=== PATIENT | male | born 1930 | race Caucasian/White ===

== ENCOUNTER → 2016-12-24 | Outpatient (CLI) | payer OTHER ==
[2014-11-27 17:36] VITALS: BP 204/92
[~2016-12-24] MED LIST: ASPI-482 PO; LISI-338 PO
--- NOTE | 2016-12-24 13:42 | EKG ---
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
--- NOTE | 2016-12-24 14:46 | RAD ---
Indication preop. Anticipated shoulder surgery. PA and lateral views of the chest were obtained. Comparison is made to an examination 07/19/2013. The heart and pulmonary vessels appear normal. The lungs are clear. There has not been a significant change when compared to the previous exam. IMPRESSION: No acute or focal process. No significant change
== END | disposition home or self-care (01) ==
LOC: SURGPAT 12:53 → EDSTATUS 13:30
PROVIDERS: ATTEND Orthopaedic Surgery Sports Medicine
DX: Z01.818 Encounter for other preprocedural examination (principal)
CPT/HCPCS: 71020; 87641; 93005

== ENCOUNTER 2017-01-06 07:42 | Inpatient (IN) | payer OTHER ==
[~2017-01-06] VITALS: Ht 180.3 cm; Wt 108.0 kg
[2017-01-06] VITALS (10 sets, daily range): BP systolic 100–130; BP diastolic 37–75
[~2017-01-06 07:42] MED LIST changes: +ACETAMINOPHEN 500 MG TABLET PO PRN; +HYDROmorphone 2 MG/ML VIAL IV PRN; +IV RINGERS,LACTATED 1000ML 1,000 ML IV SCH; +LIDOCAINE 1% 1 ML SYRINGE. ID PRN; +MELOXICAM 7.5 MG TABLET PO PRN; +MORPHINE SULFATE 2 MG/ML DISP.SYRIN. IV PRN; +ONDANSETRON PF 4 MG/2 ML VIAL. IV PRN; +PROCHLORPERAZINE 10 MG/2 ML VIAL. IV PRN; +TRANEXAMIC ACID 1,000 MG in IV NS 50ML -- 1ST BAG INJ ONE; +VANCOMYCIN 1GM IVPB FOR OMNI 250 ML IV PRN; +fentaNYL PF VIAL 100 MCG/2 ML VIAL IV PRN
[2017-01-06] MEDS ORDERED: TRANEXAMIC ACID 1,000 MG in IV NS 50ML -- 2ND BAG INJ ONE (08:00)
[2017-01-06] MEDS ORDERED: ONDANSETRON PF 4 MG/2 ML VIAL. ONE (09:26)
[2017-01-06] MEDS ORDERED: LIDOCAINE 2% PF Vial for OR 5 ML VIAL. ONE (09:26)
[2017-01-06] MEDS ORDERED: PROPOFOL 20 ML IV ONE ×2 (09:26→12:48)
[2017-01-06] MEDS ORDERED: DEXAMETHASONE SOD PHOS 20 MG/5 ML VIAL. ONE (09:26)
[2017-01-06] MEDS ORDERED: FAMOTIDINE 20 MG/2 ML VIAL ONE (09:26)
--- NOTE | 2017-01-06 09:53 | PDOC ---
BRIEF OPERATIVE NOTE Date: January 06, 2017 Pre-Op Diagnosis L shoulder DJD Post-Op Diagnosis same Procedure Performed L TSA Surgeon Dinesh Sand Conditioner Angelica Anesthesiologist Richard Anesthesia Type: General, Regional Blood Loss 100mL Complications none BREE MERCADO II January 06, 2017 09:53
[2017-01-06] MEDS ORDERED: BUPIVACAINE 0.5% 50 ML VIAL. ONE (09:59)
[2017-01-06] MEDS ORDERED: MIDAZOLAM HCL/PF 2 MG/2 ML VIAL. ONE (09:59)
[2017-01-06] MEDS ORDERED: EPINEPHrine 1 MG/ML VIAL ONE (09:59)
[2017-01-06] MEDS ORDERED: ROCURONIUM 50 MG/5 ML VIAL. ONE ×2 (10:09→11:24)
[2017-01-06] MEDS ORDERED: ePHEDrine PF IN SALINE 50 MG/5 ML DISP.SYRIN IV ONE (10:49)
[2017-01-06] MEDS ORDERED: SEVOFLURANE > 120 MINUTES. IH ONE (11:02)
[2017-01-06] MEDS ORDERED: KETOROLAC 60 MG/2 ML INJ FOR OR. ONE (11:12)
[2017-01-06] MEDS ORDERED: NEOSTIGMINE METHYLSULFATE 5 MG/5 ML SYRINGE. ONE (12:08)
[2017-01-06] MEDS ORDERED: GLYCOPYRROLATE 1 MG/5 ML VIAL. ONE (12:08)
[2017-01-06] MEDS: SENNOSIDES/DOCUSATE 8.6/50MG TABLET. PO SCH (16:00)
[2017-01-06] MEDS ORDERED: PROCHLORPERAZINE 5 MG TABLET. PO PRN (16:15)
[2017-01-06] MEDS ORDERED: traMADol 50 MG TABLET PO PRN ×2 (16:15)
[2017-01-06] MEDS ORDERED: MORPHINE SULFATE 2 MG/ML DISP.SYRIN. IV PRN (16:15)
[2017-01-06] MEDS ORDERED: oxyCODONE/APAP 5/325 1 TAB TABLET PO PRN (16:15)
[2017-01-06] MEDS ORDERED: ZOLPIDEM 5 MG TABLET. PO PRN (16:15)
[2017-01-06] MEDS ORDERED: METOCLOPRAMIDE HCL 10 MG/2 ML VIAL. IV PRN (16:15)
[2017-01-06] MEDS ORDERED: CALCIUM CARBONATE 500 MG TAB.CHEW PO PRN (16:15)
[2017-01-06] MEDS ORDERED: oxyCODONE/APAP 7.5/325 1 TAB TABLET PO PRN (16:15)
[2017-01-06] MEDS ORDERED: DEXTROSE 50% 25 GM / 50ML DISP.SYRIN. IV PRN (16:15)
[2017-01-06] MEDS ORDERED: HYDROcodone/APAP 7.5/325MG 1 TAB TABLET PO PRN (16:15)
[2017-01-06] MEDS ORDERED: 0.9 % SODIUM CHLORIDE 10 ML DISP.SYRIN. IV PRN (16:15)
[2017-01-06] MEDS ORDERED: HYDROcodone/APAP 10/325 1 TAB TABLET PO PRN (16:15)
[2017-01-06] MEDS: IV DEXTROSE 5 %-0.45 % NACL 1,000 ML IV SCH (16:43)
--- NOTE | 2017-01-06 16:54 | RAD ---
Examination: 2 views of the left shoulder History: History of postoperative comparison: 12/10/2016 Findings: The acromioclavicular joint grossly appears unremarkable. Left humerus prosthesis identified in near-normal alignment. Impression: Left film humerus prosthesis in near normal alignment.
[2017-01-06] MEDS: FERROUS SULFATE 325 MG TABLET. PO SCH (18:00)
[2017-01-06] MEDS: LISINOPRIL 5 MG TABLET. PO SCH (20:54)
[2017-01-06] MEDS ORDERED: CELECOXIB 200 MG CAPSULE. PO SCH (21:00)
--- NOTE | 2017-01-06 21:01 | OP ---
DATE OF SURGERY: 01/06/2017 SURGEON: Antoni Mercado MD. OFFLINE EDITOR: Delores Dominguez. PREOPERATIVE DIAGNOSIS: Advanced left shoulder degenerative joint disease. POSTOPERATIVE DIAGNOSIS: Advanced left shoulder degenerative joint disease. PROCEDURE PERFORMED: 1. Left total shoulder arthroplasty. 2. Open biceps tenodesis. COMPLICATIONS: None. ESTIMATED BLOOD LOSS: 100 mL. COMPONENTS INSERTED: 1. DePuy size-12 stem with a 135-degree proximal body and a 48 x 18 eccentric humeral head. 2. A 48-mm anchor peg glenoid. COMPLICATIONS: None. REASON FOR PROCEDURE: The patient is a very pleasant 86-year-old gentleman whom I had seen in an outpatient consultation. He had tried physical therapy, anti-inflammatories, and injections which failed to alleviate his shoulder pain adequately. It interfered with his function on a daily basis. Because of this, we had a discussion of risks, benefits, and alternatives to the above procedure, and he elected to proceed. DESCRIPTION OF PROCEDURE: The patient was greeted in the preoperative area by myself where correct extremity was marked and verified. He was taken to the Operative Suite, and his antibiotics were started en route. He had a regional nerve block placed by the Anesthesiology team prior to having him back to the OR. Once in the OR, he was transferred gently supine on the OR table and secured to the bed and then underwent successful induction of general anesthesia. We then placed a large pad under his legs and set him up in a beach chair position. We secured him to the bed and padded all pressure points. We then positioned the C-spine in a neutral position as well. We then proceeded to prep and drape the left upper extremity and shoulder girdle in our usual sterile fashion and conducted a standard preoperative timeout. After this, I palpated and marked surface anatomy and flower a line for my standard deltopectoral skin incision and then incised skin with a scalpel and dissected the subcutaneous tissue with Metzenbaums and electrocautery as well. After this, I identified a cephalic vein and bluntly dissected in its deltopectoral interval taking the vein laterally. I identified his clavipectoral fascia and conjoint tendon. I then incised the clavipectoral fascia in line with the skin incision and placed my Kolbel retractor. I then identified his biceps tendon and exposed this by incising the sheath vertically. After this, I tenodesed his biceps tendon to the upper border of the pectoralis major tendon. I then opened his bicipital sheath up into the shoulder joint itself and incised the rotator interval back to the level of the coracoid. After this, I then placed tag stitches in his subscapularis as I took this down with electrocautery with progressive external rotation as well. He had a large inferior osteophyte which I took down removing with a rongeur. I worked into the posterior aspect of his humeral head taking this off. I then identified my appropriate starting position and gained entry into his humeral canal and began reaming up and had a good first bite at 12. I then removed this. I then freehanded my humeral head cut after visualizing his joint line around and protecting his humeral head posteriorly. After this, I then placed my Fukuda retractor as well as Bankart retractor anteriorly and used a long-handled scalpel to circumferentially incise the capsule around the glenoid for my releases. I then placed my glenoid sizer and felt the 48 gave the best fit and then drilled the center pin and then reamed down to a good punctate bleeding bony bed. I then used a rongeur to remove the labrum as well. After this, I placed my right drill for my central peg hole and then removed the drill guide pin. I then placed my peripheral peg drill guide and then drilled in and placed my pegs as I want as well. I then thoroughly irrigated out the operative field. While I was drilling, my transition assistant was making the cement, and I prepared the bone graft in the slotted fins of my glenoid piece. I then impacted the glenoid in position with cement in the peripheral 3 holes under digital pressure. I confirmed that it had seated appropriately. After this, I removed my retractors and repositioned my [place] retractors around my humeral head for access to this. I then placed my broach matching the patient's [place] version. I impacted the broach and then sized different head combinations. I felt the 48 x 18 eccentric gave the best fit and fill. After this, I removed the trial components, irrigated out the canal, and impacted in position the permanent components after assembling them on the back table. I then reduced the shoulder that I could spring back. There was no undue tension on his subscapularis. It should be noted that prior to placing my humeral component I passed #2 Ethibond through drill holes and around the stem. I then used these to repair my subscapularis. I supplemented this with a #2 Ethibond in simple interrupted fashion from the upper border of subscapularis to the supraspinatus as well. I then closed the interval with a #2 Ethibond in a simple interrupted fashion. After this, I irrigated out the operative field again and then injected my periarticular mixture with a little into the joint as well as around the vijay-incisional area. Prior to completion of wound closure, all counts were reported correct x2. I continued on with my deltopectoral interval which was closed with running 0 Vicryl. Inverted interrupted 2-0 was used for subcutaneous tissue and running 4-0 Monocryl in subcuticular fashion was used for skin. He was then placed into an abduction pillow sling after the arm was cleansed and dried, and sterile dressing was applied. He was then awakened, transferred supine, and extubated to the Recovery Room cart and taken to PACU in stable and extubated condition. Postoperative plan is to [facility] care and observation as well as antibiotic prophylaxis and IV pain medicine. He will begin his rehabilitation as well. ANTONI MERCADO MD DR: MARTINA/angelica JOB#: [id number] / [id number] CHICHO
[2017-01-06] MEDS ORDERED: VANCOMYCIN 1 GM in IV NORMAL SALINE 250ML 250 ML IV ONE (22:30)
[2017-01-07] MEDS: IV DEXTROSE 5 %-0.45 % NACL 1,000 ML IV SCH (02:01)
[2017-01-07 03:30] VITALS: BP 128/75
[2017-01-07] MEDS ORDERED: MAGNESIUM HYDROXIDE 2,400 MG/30 ML ORAL.SUSP. PO PRN (06:00)
[2017-01-07 06:10] VITALS: BP 139/80
[2017-01-07 06:25] LABS: HEMATOCRIT 31.1 % (39.0-53.0); HEMOGLOBIN 10.7 g/dL (13.0-17.5)
[2017-01-07] MEDS: ASPIRIN ENTERIC COATED 81 MG TABLET.DR. PO SCH (08:00)
[2017-01-07] MEDS: FERROUS SULFATE 325 MG TABLET. PO SCH ×2 (08:18→18:43)
[2017-01-07] MEDS: MULTIVITAMIN with MINERAL TABLET. PO SCH (08:18)
[2017-01-07] MEDS: SENNOSIDES/DOCUSATE 8.6/50MG TABLET. PO SCH (08:18)
--- NOTE | 2017-01-07 10:10 | PDOC ---
ABNER ROMEO MAINTENANCE DEPARTMENT TECHNICIAN 01/07/17 1010: ORTHO PROGRESS NOTES Subjective Patient is doing well, pain controlled. RN reports urinary retention. st cath yesterday and 350 on bladder scan this am. Patient reports that he has had trouble with this for several years, never had any treatment. Denies any known problems with the prostate. Denies CP/SOB. Post-op Day: 1 (Left TSA) Vitals Vital Signs Date Time Temp Pulse Resp B/P (MAP) Pulse Ox O2 Delivery O2 Flow Rate FiO2 01/07/17 07:47 Room Air 01/07/17 06:10 97.4 78 20 139/80 (99) 94 97.4 01/06/17 13:19 10 Labs Laboratory Tests Test 01/07/17 05:45 Hemoglobin 10.7 g/dL (13.0-17.5) Hematocrit 31.1 % (39.0-53.0) Mean Corpuscular Hemoglobin Concent 34 g/dL (31-37) Laboratory Tests Test 01/07/17 05:45 Hemoglobin 10.7 g/dL (13.0-17.5) Hematocrit 31.1 % (39.0-53.0) Mean Corpuscular Hemoglobin Concent 34 g/dL (31-37) Notes Patient is awake and alert walking about the room. Breathing unlabored, no acute distress. Neurovascular intact left upper extremity. Incision is well approximated, no signs or symptoms of infection Problems: (1) DJD of left shoulder Assessment and Plan Urinary retention-start Flomax Pain controlled PT/OT BREE MERCADO II, MD 01/07/17 2012: Problem Qualifiers (1) DJD of left shoulder: Osteoarthritis type: primary Qualified Codes: M19.012 - Primary osteoarthritis, left shoulder ABNER ROMEO MAINTENANCE DEPARTMENT TECHNICIAN January 07, 2017 10:10 BREE MERCADO II, MD January 07, 2017 20:12
[2017-01-07] MEDS: TAMSULOSIN 0.4 MG CAP.ER.24H. PO SCH (11:30)
[2017-01-07] MEDS ORDERED: BISACODYL 10 MG SUPP.RECT. PR PRN (16:00)
[2017-01-07 18:13] VITALS: BP 137/67
[2017-01-07] MEDS: LISINOPRIL 5 MG TABLET. PO SCH (21:28)
[2017-01-08 04:35] LABS: HEMATOCRIT 30.7 % (39.0-53.0); HEMOGLOBIN 10.5 g/dL (13.0-17.5)
[2017-01-08 06:45] VITALS: BP 140/78
[2017-01-08] MEDS: MULTIVITAMIN with MINERAL TABLET. PO SCH (07:57)
[2017-01-08] MEDS: SENNOSIDES/DOCUSATE 8.6/50MG TABLET. PO SCH (07:58)
[2017-01-08] MEDS: TAMSULOSIN 0.4 MG CAP.ER.24H. PO SCH (07:58)
[2017-01-08] MEDS: FERROUS SULFATE 325 MG TABLET. PO SCH (07:58)
[2017-01-08] MEDS: ASPIRIN ENTERIC COATED 81 MG TABLET.DR. PO SCH (07:58)
--- NOTE | 2017-01-08 13:53 | PDOC ---
ABNER ROMEO STOVE TENDER 01/08/17 1353: ORTHO PROGRESS NOTES Subjective Patient is sore today, but overall pain controlled. Still having trouble with retention. RN states that it is "better" since I started him on flomax yesterday but still had residual on bladder scan and had to st cath. His tells me that he had trouble with frequent urination at home prior to surgery. He has not seen his PCP or urologist fo this problem. Denies N/V in the LUE. Post-op Day: 2 (Left total shoulder) Vitals Vital Signs Date Time Temp Pulse Resp B/P (MAP) Pulse Ox O2 Delivery O2 Flow Rate FiO2 01/08/17 07:40 Room Air 2.0 01/08/17 06:45 98.1 74 20 140/78 (98) 94 98.1 Labs Laboratory Tests Test 01/07/17 05:45 01/08/17 03:45 Hemoglobin 10.7 g/dL (13.0-17.5) 10.5 g/dL (13.0-17.5) Hematocrit 31.1 % (39.0-53.0) 30.7 % (39.0-53.0) Mean Corpuscular Hemoglobin Concent 34 g/dL (31-37) 34 g/dL (31-37) Laboratory Tests Test 01/08/17 03:45 Hemoglobin 10.5 g/dL (13.0-17.5) Hematocrit 30.7 % (39.0-53.0) Mean Corpuscular Hemoglobin Concent 34 g/dL (31-37) Notes Patient is awake and alert sitting up in chair. Breathing unlabored, no acute distress. Incision well approximated. Neurovascular intact left upper extremity. Problems: (1) DJD of left shoulder (2) Urinary retention Assessment and Plan Urinary retention- will discuss with dr Mercado Shoulder- doing well, ok to DC BREE MERCADO II, MD 01/08/17 7736: ORTHO PROGRESS NOTES Assessment and Plan Patient seen by myself. Urination back to normal, pain controlled, good progress with PT. OK to D/C Problem Qualifiers (1) DJD of left shoulder: Osteoarthritis type: primary Qualified Codes: M19.012 - Primary osteoarthritis, left shoulder ABNER ROMEO STOVE TENDER January 08, 2017 13:53 BREE MERCADO II, MD January 08, 2017 13:58
--- NOTE | 2017-01-08 13:56 | DISCH ---
DISCHARGE INSTRUCTIONS Condition on Discharge Condition on Discharge: Stable Activity After Discharge Activity Instructions for Disc: Other, see below Other activity instructions: arm to remain in sling Bathing Instructions: Shower-keep dressing dry Weight Bearing Status after Di: Non weight bearing Diet after Discharge Diet after Discharge: Regular Wound Incision Care Wound/Incision Care: Ice to area for comfort, Keep wound/cast CDI, Do not change dressing Contacting the DR. after DC Call your doctor for: Concerns you may have Follow-Up Follow up with: PCP in 1-2 wks Follow Up With: Dinesh in 2wks BREE MERCADO II, MD January 08, 2017 13:56
[2017-01-08] MEDS ORDERED: SENN8.6T99 PO (14:11)
[2017-01-08] MEDS ORDERED: TAMS0.4C97 PO (14:11)
[2017-01-08] MEDS ORDERED: HYDR-2666 PO (14:11)
--- NOTE | 2017-01-09 08:41 | PATHOLOGY ---
PATHOLOGY REPORT * * * * * * * * FINAL DIAGNOSIS: Segments of bone and soft tissue, left total shoulder arthroplasty: - Advanced degenerative arthritis. (JPM:csd; d/t: 01/08/2017) REPORT ELECTRONICALLY SIGNED BY: Ben Israel M.D. DATE/TIME: 01/09/2017 08:39 * * * * * * * * GROSS PATHOLOGY: Received in formalin labeled "Sigrid Quintero left shoulder tissue," is a dome-shaped segment of bone admixed with soft tissue measuring 6.8 x 5.9 x 2.8 cm in greatest dimensions. The articular surface is pink-farias and smooth to red-farias and granular with focal evidence of eburnation. Sectioning reveals a pink-farias marrow space. Also received with the specimen container is a 4.1 x 1.1 x 0.6 cm segment of light farias fibrous tissue. Loading Unit Tool Setter tissue is submitted in cassette A1, following decalcification. (KAH; 01/07/2017) INITIAL CPT CODE(S): A; 52664, 53747 Professional services performed by [facility] [place] [address] Technical services performed by [facility] at [address] [place] [address] [address], [place] [address]. SPECIMEN(S) RECEIVED: A.Left shoulder tissue CLINICAL HISTORY: Left shoulder tissue PATIENT: SIGRID QUINTERO /AGE: 10 1930 (Age: 86) PATIENT #: [id number] ALT CASE #: SPECIMEN COLLECTION DATE: 01/06/2017 SPECIMEN RECEIVED DATE: 01/06/2017 [facility] - [address] [place] [address] - PHONE: [phone] * * * END OF REPORT * * *
--- NOTE | 2017-01-10 08:47 | PDOC3 ---
Discharge Summary Visit Information Date of Admission: January 06, 2017 Date of Discharge: January 08, 2017 Admitting Diagnosis: left shoulder degenerative joint disease Brief Hospital Course Allergies Allergies Coded Allergies Type Severity Reaction Last Updated Verified Penicillins Allergy Intermediate Hives 01/06/17 Yes celecoxib Allergy Intermediate Swelling 01/06/17 Yes Brief Hospital Course Mr. Quintero is a 86 old male who presented to my outpatient orthopedic surgery clinic with complaints of severe and progressive left shoulder pain. Clinical and radiographic workup were consistent with degenerative joint disease and after failure of conservative therapies we had a discussion the risks benefits and alternatives precedent about surgery and he elected to proceed. He tolerated surgery well recovered well from anesthesia and the PACU. [facility] was [facility] for care and observation as well as to be getting his rehabilitation and received IV pain medicine and by a prophylaxis. His postoperative course was characterized by some urinary retention which was not unusual for him although this was a little bit worse. We started him on Flomax and prior to discharge he was voiding well. Otherwise his clinical course was uneventful. He was hemodynamically stable and afebrile. He was maintaining his ADLs well. He progressed well with physical therapy. His incision was clean dry and intact at the time of discharge. He was having normal bowel and bladder function and his pain was controlled on oral pain medicine Discharge Information Condition at Discharge: Stable Follow Up: Weeks Disposition/Orders: D/C to Home Scheduled Aspirin (Aspir 81), 81 MG PO DAILY08, (Reported) Lisinopril (Lisinopril), 5 MG PO HS, (Reported) Sennosides (Senokot), 1 TAB PO BID, (Reported) Tamsulosin Hcl (Flomax), 0.4 MG PO DAILY, (Reported) Scheduled PRN Hydrocodone Bit/Acetaminophen (Hydrocodone-Apap 5-325 ), 1 TAB PO PRN Q4- 6HRS PRN for PAIN, (Reported) Miscellaneous Medications [unknown], (Reported) Patient Instructions Patient Instructions He'll be discharged home. outpatient physical therapy as soon as variable. worrisome signs and symptoms that should prompt focal tomatoes were discussed with him. we will see him back at his follow-up appointment, sooner should a problem arise. he'll follow up with his primary care provider regarding his urinary retention. BREE MERCADO II, MD January 10, 2017 08:47
== END 2017-01-08 15:25 | disposition home health service (06) | DRG 483 ==
LOC: OPSVCIP 07:42 → 4 SOUTHEST 14:10
PROVIDERS: ADMIT Orthopaedic Surgery Sports Medicine; ATTEND Orthopaedic Surgery Sports Medicine
PROC: 0LM40ZZ Reattachment of Left Upper Arm Tendon, Open Approach (ICD-10-PCS; 2017-01-06)
PROC: 0RRK0JZ Replacement of Left Shoulder Joint with Synthetic Substitute, Open Approach (ICD-10-PCS; principal; 2017-01-06 09:30)
DX: M19.012 Primary osteoarthritis, left shoulder (principal); R33.9 Retention of urine, unspecified; Z88.0 Allergy status to penicillin; Z88.8 Allergy status to other drugs, medicaments and biological substances
CPT/HCPCS: 36415; 73030; 85014; 85018; 86850; 86900; 86901; 88304; 88311; A4215; J0171; J1100; J1885; J2250; J2270; J2405; J2704; J2710; J2795; J3370; J3490; J7030; J7050; J7120; S0028; 97110; 97116; 97150; 97530; 97535; C1769

== ENCOUNTER → 2017-02-18 | Outpatient (CLI) | payer OTHER ==
[~2017-02-18] MED LIST changes: -ACETAMINOPHEN 500 MG TABLET PO PRN; +HYDR-2758 PO; -HYDROmorphone 2 MG/ML VIAL IV PRN; -IV RINGERS,LACTATED 1000ML 1,000 ML IV SCH; -LIDOCAINE 1% 1 ML SYRINGE. ID PRN; -MELOXICAM 7.5 MG TABLET PO PRN; -MORPHINE SULFATE 2 MG/ML DISP.SYRIN. IV PRN; -ONDANSETRON PF 4 MG/2 ML VIAL. IV PRN; -PROCHLORPERAZINE 10 MG/2 ML VIAL. IV PRN; +SENN8.6T99 PO; +TAMS0.4C97 PO; -TRANEXAMIC ACID 1,000 MG in IV NS 50ML -- 1ST BAG INJ ONE; -VANCOMYCIN 1GM IVPB FOR OMNI 250 ML IV PRN; -fentaNYL PF VIAL 100 MCG/2 ML VIAL IV PRN
--- NOTE | 2017-02-18 13:06 | RAD ---
Indication: Benign prostatic hyperplasia. The right kidney measures 10.4 x 4.4 x 5.4 cm and the left kidney measures 11.0 x 5.3 x 4.6 cm. The cortical thickness and echogenicity is normal. No calculi or hydronephrosis is detected. The bladder is unremarkable. The prostate measures 4.2 x 3.4 x 3.5 cm. Note is made of multiple stones within the gallbladder. Impression: 1. Unremarkable renal ultrasound. 2. Cholelithiasis.
== END | disposition home or self-care (01) ==
LOC: US 11:25
PROVIDERS: ATTEND Urology
DX: N40.0 Benign prostatic hyperplasia without lower urinary tract symptoms (principal); K80.20 Calculus of gallbladder without cholecystitis without obstruction
CPT/HCPCS: 76770

== ENCOUNTER → 2019-06-15 | Outpatient (CLI) | payer OTHER ==
[~2019-06-15] MED LIST changes: -HYDR-2758 PO; +HYDR-2761 PO
--- NOTE | 2019-06-15 13:05 | RAD ---
EXAM: Right lower extremity venous Doppler. HISTORY: Right lower extremity pain/swelling. COMPARISON: None. FINDINGS: Grayscale and Doppler analysis of the right lower extremity deep venous system was performed with graded compression and augmentation. The common femoral, greater saphenous, superficial femoral, popliteal and calf veins were assessed. There is no evidence of deep venous thrombosis. IMPRESSION: 1. No evidence of deep venous thrombosis. Electronically signed by: Joy Liang MD (06/15/2019 1:02 PM) [facility]
== END | disposition home or self-care (01) ==
LOC: US 11:51
PROVIDERS: ATTEND Family Medicine
DX: M79.604 Pain in right leg (principal); R22.41 Localized swelling, mass and lump, right lower limb
CPT/HCPCS: 93971

== ENCOUNTER 2019-06-18 11:47 | Inpatient (IN) | payer OTHER ==
[~2019-06-18] VITALS: Ht 180.3 cm; Wt 98.9 kg
--- NOTE | 2019-06-18 12:46 | PHYS DOC ---
Past Medical History Past Medical History: Hypertension, Renal Disease, Other Additional Past Medical Histor: emphysema,heart murmur,CHRONIC PAIN,STAGE 3 KIDNEY DISEASE (RADHA BENTON APRN) Past Surgical History: Hip Replacement, Knee Replacement, Tonsillectomy, Other Additional Past Surgical Histo: BILAT CARPAL TUNNEL RELEASE,SHOULDER (RADHA BENTON APRN) Alcohol Use: None Drug Use: None (RADHA BENTON APRN) Attending Signature I have participated in the care of this patient and I have reviewed and agree with all pertinent clinical information above including history, exam, and recommendations. (NEISHA COURTNEY MD) Adult General Chief Complaint Chief Complaint: MULTIPLE COMPLAINTS HPI HPI Patient is a 89 year old male, accompanied by his family, who presents to the emergency department with complaints of ongoing right leg pain. Patient states he has been dealing with right leg pain for several months, he denies any injury. He states that currently cannot stand on his leg because of the pain. Patient reports that when the sx first started he was diagnosed with sciatica an d he completed 2 months of home PT with no benefit. He was seen by an orthopedic doctor Dr. Gil evaluated him and did x-rays month ago but did not come up with any diagnosis. Patient states he had an ultrasound here at the beginning of the week but does not know the results of the ultrasound. He states that he also has been short of breath with exertion for several months, he denies any chest pain, palpitations, wheezing, cough, or history of heart disease. Patient denies any loss of bowel or bladder control, he denies any saddle anesthesia. Currently he rates his pain a 3 out of 10 on the pain scale, the pain does not increase with straight leg lift. He denies any alleviating factors. (RADHA BENTON APRN) Review of Systems Review of Systems Constitutional: Denies fever or chills [] Eyes: Denies redness, or eye pain [] HENT: Denies nasal congestion or sore throat [] Respiratory: Denies cough; see HPI Cardiovascular: No additional information not addressed in HPI [] GI: Denies abdominal pain, nausea, vomiting, or diarrhea [] : Denies dysuria or hematuria [] Musculoskeletal: Denies back pain or joint pain; reports right leg pain and bilateral LE swelling see HPI[] Integument: Denies rash or skin lesions [] Neurologic: Denies headache, focal weakness or sensory changes [] All other systems were reviewed and found to be within normal limits, except as documented in this note. (RADHA BENTON APRN) Allergies Allergies Allergies Coded Allergies Type Severity Reaction Last Updated Verified Penicillins Allergy Intermediate Hives 01/06/17 Yes celecoxib Allergy Intermediate Swelling 01/06/17 Yes (NEISHA COURTNEY MD) Physical Exam Physical Exam Constitutional: Well developed, well nourished, no acute distress, non-toxic appearance. [] HENT: Normocephalic, atraumatic, bilateral external ears normal, nose normal. [] Eyes: PERRLA, no discharge. [] Neck: Normal range of motion, no stridor. [] Cardiovascular:Heart rate regular rhythm, no murmur [] Lungs & Thorax: Bilateral breath sounds clear to auscultation [] Abdomen: soft, no tenderness, Skin: Warm, dry, no erythema, no rash. [] Back: No tenderness Extremities: No bony tenderness or deformity, no cyanosis, no clubbing, ROM intact, 1+ edema bilateral lower extremities Neurologic: Alert and oriented X 3, no focal deficits noted. [] Psychologic: Affect normal, judgement normal, mood normal. [] (RADHA BENTON APRN) Current Patient Data Vital Signs Vital Signs Date Time Temp Pulse Resp B/P (MAP) Pulse Ox O2 Delivery O2 Flow Rate FiO2 06/18/19 14:37 68 153/76 (101) 98 Room Air 06/18/19 11:55 98.1 19 98.1 (NEISHA COURTNEY MD) Lab Values Laboratory Tests Test 06/18/19 13:10 06/18/19 13:35 Urine Collection Type Unknown Urine Color Yellow Urine Clarity Clear Urine pH 5.0 Urine Specific [place] 1.015 Urine Protein Negative mg/dL (NEG-TRACE) Urine Glucose (UA) Negative mg/dL (NEG) Urine Ketones (Stick) Negative mg/dL (NEG) Urine Blood Negative (NEG) Urine Nitrite Negative (NEG) Urine Bilirubin Negative (NEG) Urine Urobilinogen Dipstick 0.2 mg/dL (0.2 mg/dL) Urine Leukocyte Esterase Negative (NEG) Urine RBC 1-2 /HPF (0-2) Urine WBC 0 /HPF (0-4) Urine Squamous Epithelial Cells Few /LPF Urine Bacteria 0 /HPF (0-FEW) Urine Hyaline Casts Few /HPF Urine Mucus Slight /LPF White Blood Count 7.3 x10^3/uL (4.0-11.0) Red Blood Count 3.15 x10^6/uL (4.30-5.70) L Hemoglobin 11.0 g/dL (13.0-17.5) L Hematocrit 31.8 % (39.0-53.0) L Mean Corpuscular Volume 101 fL (79-100) H Mean Corpuscular Hemoglobin 35 pg (25-35) Mean Corpuscular Hemoglobin Concent 35 g/dL (31-37) Red Cell Distribution Width 15.9 % (11.5-14.5) H Platelet Count 187 x10^3/uL (140-400) Neutrophils (%) (Auto) 69 % (31-73) Lymphocytes (%) (Auto) 22 % (24-48) L Monocytes (%) (Auto) 7 % (0-9) Eosinophils (%) (Auto) 1 % (0-3) Basophils (%) (Auto) 1 % (0-3) Neutrophils # (Auto) 5.0 x10^3/uL (1.8-7.7) Lymphocytes # (Auto) 1.6 x10^3/uL (1.0-4.8) Monocytes # (Auto) 0.5 x10^3/uL (0.0-1.1) Eosinophils # (Auto) 0.1 x10^3/uL (0.0-0.7) Basophils # (Auto) 0.1 x10^3/uL (0.0-0.2) Erythrocyte Sedimentation Rate 35 (0-15) H Prothrombin Time 13.5 SEC (11.7-14.0) Prothrombin Time INR 1.1 (0.8-1.1) Activated Partial Thromboplast Time 29 SEC (24-38) Sodium Level 142 mmol/L (136-145) Potassium Level 4.5 mmol/L (3.5-5.1) Chloride Level 103 mmol/L (98-107) Carbon Dioxide Level 28 mmol/L (21-32) Anion Gap 11 (6-14) Blood Urea Nitrogen 32 mg/dL (8-26) H Creatinine 1.5 mg/dL (0.7-1.3) H Estimated GFR (Cockcroft-Gault) 44.3 BUN/Creatinine Ratio 21 (6-20) H Glucose Level 116 mg/dL (70-99) H Calcium Level 9.4 mg/dL (8.5-10.1) Magnesium Level 2.5 mg/dL (1.8-2.4) H Total Bilirubin 0.4 mg/dL (0.2-1.0) Aspartate Amino Transferase (AST) 19 U/L (15-37) Alanine Aminotransferase (ALT) 17 U/L (16-63) Alkaline Phosphatase 54 U/L (46-116) Creatine Kinase 42 U/L (39-308) Troponin I Quantitative 0.023 ng/mL (0.000-0.055) DU-Mid-I-Type Natriuretic Peptide 1908 pg/mL (0-449) H Total Protein 8.2 g/dL (6.4-8.2) Albumin 4.4 g/dL (3.4-5.0) Albumin/Globulin Ratio 1.2 (1.0-1.7) Thyroid Stimulating Hormone (TSH) 0.872 uIU/mL (0.358-3.74) Laboratory Tests 06/18/19 13:35 Laboratory Tests 06/18/19 13:35 (NEISHA COURTNEY MD) Lab Values Laboratory Tests Test 06/18/19 13:10 06/18/19 13:35 Urine Collection Type Unknown Urine Color Yellow Urine Clarity Clear Urine pH 5.0 Urine Specific [place] 1.015 Urine Protein Negative mg/dL (NEG-TRACE) Urine Glucose (UA) Negative mg/dL (NEG) Urine Ketones (Stick) Negative mg/dL (NEG) Urine Blood Negative (NEG) Urine Nitrite Negative (NEG) Urine Bilirubin Negative (NEG) Urine Urobilinogen Dipstick 0.2 mg/dL (0.2 mg/dL) Urine Leukocyte Esterase Negative (NEG) Urine RBC 1-2 /HPF (0-2) Urine WBC 0 /HPF (0-4) Urine Squamous Epithelial Cells Few /LPF Urine Bacteria 0 /HPF (0-FEW) Urine Hyaline Casts Few /HPF Urine Mucus Slight /LPF White Blood Count 7.3 x10^3/uL (4.0-11.0) Red Blood Count 3.15 x10^6/uL (4.30-5.70) L Hemoglobin 11.0 g/dL (13.0-17.5) L Hematocrit 31.8 % (39.0-53.0) L Mean Corpuscular Volume 101 fL (79-100) H Mean Corpuscular Hemoglobin 35 pg (25-35) Mean Corpuscular Hemoglobin Concent 35 g/dL (31-37) Red Cell Distribution Width 15.9 % (11.5-14.5) H Platelet Count 187 x10^3/uL (140-400) Neutrophils (%) (Auto) 69 % (31-73) Lymphocytes (%) (Auto) 22 % (24-48) L Monocytes (%) (Auto) 7 % (0-9) Eosinophils (%) (Auto) 1 % (0-3) Basophils (%) (Auto) 1 % (0-3) Neutrophils # (Auto) 5.0 x10^3/uL (1.8-7.7) Lymphocytes # (Auto) 1.6 x10^3/uL (1.0-4.8) Monocytes # (Auto) 0.5 x10^3/uL (0.0-1.1) Eosinophils # (Auto) 0.1 x10^3/uL (0.0-0.7) Basophils # (Auto) 0.1 x10^3/uL (0.0-0.2) Erythrocyte Sedimentation Rate 35 (0-15) H Prothrombin Time 13.5 SEC (11.7-14.0) Prothrombin Time INR 1.1 (0.8-1.1) Activated Partial Thromboplast Time 29 SEC (24-38) Sodium Level 142 mmol/L (136-145) Potassium Level 4.5 mmol/L (3.5-5.1) Chloride Level 103 mmol/L (98-107) Carbon Dioxide Level 28 mmol/L (21-32) Anion Gap 11 (6-14) Blood Urea Nitrogen 32 mg/dL (8-26) H Creatinine 1.5 mg/dL (0.7-1.3) H Estimated GFR (Cockcroft-Gault) 44.3 BUN/Creatinine Ratio 21 (6-20) H Glucose Level 116 mg/dL (70-99) H Calcium Level 9.4 mg/dL (8.5-10.1) Magnesium Level 2.5 mg/dL (1.8-2.4) H Total Bilirubin 0.4 mg/dL (0.2-1.0) Aspartate Amino Transferase (AST) 19 U/L (15-37) Alanine Aminotransferase (ALT) 17 U/L (16-63) Alkaline Phosphatase 54 U/L (46-116) Creatine Kinase 42 U/L (39-308) Troponin I Quantitative 0.023 ng/mL (0.000-0.055) VF-Niy-Q-Type Natriuretic Peptide 1908 pg/mL (0-449) H Total Protein 8.2 g/dL (6.4-8.2) Albumin 4.4 g/dL (3.4-5.0) Albumin/Globulin Ratio 1.2 (1.0-1.7) Thyroid Stimulating Hormone (TSH) 0.872 uIU/mL (0.358-3.74) Laboratory Tests 06/18/19 13:35 Laboratory Tests 06/18/19 13:35 (RADHA BENTON APRN) EKG EKG 1247- SR with PVCs and prolonged HI, leftward axis, NO STEMI rates [address] Courtney[] (RADHA BENTON APRN) Radiology/Procedures Radiology/Procedures PROCEDURE: VENOUS LOWER EXTREMITY RIGHT EXAM: Right lower extremity venous Doppler. HISTORY: Right lower extremity pain/swelling. COMPARISON: None. FINDINGS: Grayscale and Doppler analysis of the right lower extremity deep venous system was performed with graded compression and augmentation. The common femoral, greater saphenous, superficial femoral, popliteal and calf veins were assessed. There is no evidence of deep venous thrombosis. IMPRESSION: 1. No evidence of deep venous thrombosis.[] PROCEDURE: CHEST AP ONLY EXAM: Chest, single view. HISTORY: Shortness of breath. COMPARISON: 01/11/2017 FINDINGS: A frontal view of the chest is obtained. There is no infiltrate, pleural effusion or pneumothorax. The heart is normal in size. There is a left shoulder arthroplasty in expected position. IMPRESSION: No acute pulmonary finding. (RADHA BENTON APRN) Course & Med Decision Making Course & Med Decision Making Pertinent Labs and Imaging studies reviewed. (See chart for details) dx: R leg pain, SOA on exertion EKG unremarkable CBC RBC 3.15, Hgb 11.0, Hct 31.8; PT/INR unremarkable; CMP BUN 32, Buttermaker Continuous Churn 1.5 BUN/textile screen maker ratio 21, glucose 116, Mg 2.5, troponin 0.023, BNP 1908; UA unremarkable CXR no acute findings [address] Solis who is the admitting physician, and care was assumed following discussion of patient. Patient's vital signs stable. Patient remains afebrile, appears nontoxic, respirations even and unlabored. Patient will be admitted to the med/tele floor. Patient's case and plan of care also discussed with Dr. Courtney [] (RADHA BENTON APRN) Dragon Disclaimer Dragon Disclaimer This electronic medical record was generated, in whole or in part, using a voice recognition dictation system. (RADHA BENTON APRN) Departure Departure Impression: Primary Impression: Right leg pain Additional Impression: Short of breath on exertion Disposition: ADMITTED INPATIENT Admitting Physician: SABAS DUARTE) (RADHA BENTON APRN) Condition: STABLE Referrals: KATERYNA MORE MD (PCP) Problem Qualifiers RADHA BENTON APRN Jun 18, 2019 12:46 NEISHA COURTNEY MD Jun 19, 2019 06:22
--- NOTE | 2019-06-18 12:58 | EKG ---
[facility] [address] [place] [address] Test Date: 2019-06-18 Test Time: 12:47:49 Pat Name: SIGRID BRAND Department: Room: Gender: M Insurance Manager: : [id number] Requested By: RADHA BENTON Order Number: [id number] Reading MD: Sixto Pal MD Measurements Intervals [place] Rate: 71 P: 48 VA: 232 QRS: -26 QRSD: 74 T: 11 QT: 396 QTc: 435 Interpretive Statements SINUS RHYTHM VENTRICULAR PREMATURE COMPLEX(ES) PROLONGED VA INTERVAL Electronically Signed On 07-05-2019 8:28:26 CNC SERVICE ENGINEER by Sixto Pal MD
[2019-06-18 13:23] LABS: BILIRUBIN,URINE NEGATIVE (NEG); CLARITY,URINE CLEAR; COLOR,URINE YELLOW; NITRITE,URINE NEGATIVE (NEG); PROTEIN,URINE NEGATIVE (NEG-TRACE); UROBILINOGEN,URINE 0.2 mg/dL (0.2 mg/dL)
[2019-06-18 13:45] LABS: BASO # 0.1 x10^3/uL (0.0-0.2); BASO % 1 % (0-3); EOS # 0.1 x10^3/uL (0.0-0.7); EOS % 1 % (0-3); HEMATOCRIT 31.8 % (39.0-53.0); LYMPH # 1.6 x10^3/uL (1.0-4.8); LYMPH % 22 % (24-48); MEAN CORPUSCULAR HEMOGLOBIN 35 pg (25-35); MEAN CORPUSCULAR HGB CONC 35 g/dL (31-37); MEAN CORPUSCULAR VOLUME 101 fL (79-100); MONO # 0.5 x10^3/uL (0.0-1.1); MONO % 7 % (0-9); NEUT % 69 % (31-73); PLATELET COUNT 187 x10^3/uL (140-400); RED BLOOD COUNT 3.15 x10^6/uL (4.30-5.70); RED CELL DISTRIBUTION WIDTH 15.9 % (11.5-14.5); WHITE BLOOD COUNT 7.3 x10^3/uL (4.0-11.0)
[2019-06-18 13:52] LABS: HYALINE CASTS, URINE FEW /HPF; SQUAMOUS EPITHELIAL CELL,UR FEW /LPF
[2019-06-18 13:55] LABS: PROTHROMBIN TIME PATIENT 13.5 SEC (11.7-14.0)
[2019-06-18 13:59] LABS: BACTERIA,URINE 0 /HPF (0-FEW); WBC,URINE 0 /HPF (0-4)
[2019-06-18 14:02] LABS: CALCIUM 9.4 mg/dL (8.5-10.1); CREATININE 1.5 mg/dL (0.7-1.3); GFR 44.3; POTASSIUM 4.5 mmol/L (3.5-5.1)
[2019-06-18 14:08] LABS: ALBUMIN 4.4 g/dL (3.4-5.0); ALBUMIN/GLOBULIN RATIO 1.2 (1.0-1.7); MAGNESIUM 2.5 mg/dL (1.8-2.4); TOTAL BILIRUBIN 0.4 mg/dL (0.2-1.0); TOTAL PROTEIN 8.2 g/dL (6.4-8.2)
--- NOTE | 2019-06-18 14:45 | RAD ---
EXAM: Chest, single view. HISTORY: Shortness of breath. COMPARISON: 01/11/2017 FINDINGS: A frontal view of the chest is obtained. There is no infiltrate, pleural effusion or pneumothorax. The heart is normal in size. There is a left shoulder arthroplasty in expected position. IMPRESSION: No acute pulmonary finding. Electronically signed by: Hilda White MD (06/18/2019 2:42 PM) [place] [id number]
[2019-06-18] MEDS ORDERED: guaiFENesin/CODEINE 100mg/10mg 5 ML LIQUID PO PRN (15:00)
[2019-06-18] MEDS ORDERED: CALCIUM CARBONATE 500 MG TAB.CHEW PO PRN (15:00)
[2019-06-18] MEDS ORDERED: ALBUTEROL SULFATE 2.5 MG/3 ML NEBU. NEB PRN (15:00)
[2019-06-18] MEDS ORDERED: HYDROcodone/APAP 5/325MG 1 TAB TABLET PO PRN (15:00)
[2019-06-18] MEDS ORDERED: ONDANSETRON PF 4 MG/2 ML VIAL. IVP PRN (15:00)
[2019-06-18] MEDS ORDERED: cloNIDine HCL 0.1 MG TABLET PO PRN (15:00)
[2019-06-18] MEDS ORDERED: IV NORMAL SALINE 1000ML BAG 1,000 ML IV ONE (15:00)
[2019-06-18] MEDS ORDERED: TEMAZEPAM 7.5 MG CAPSULE PO PRN (15:00)
[2019-06-18] MEDS: HYDROcodone/APAP 5/325MG 1 TAB TABLET PO PRN ×2 (15:18→20:24)
--- NOTE | 2019-06-18 15:18 | PDOC1 ---
History and Physical Date of Admission Date of Admission DATE: 06/18/19 TIME: 15:09 Identification/Chief Complaint Chief Complaint bilateral ant thigh pain, in spurts, x mos now, SOA and leg edema Source Source: Caregiver, Chart review, Patient History of Present Illness History of Present Illness 89 white male, lives alone at home and uses walker, son lives a block away, bought in by son bec of persistent anteroir thigh pain with no obvious triggers.,happens in spurts like a "cramp attack". HE winces in pain every time it happens that i witness during y H and P., His past medical is BPH, prev on flomax but stopped bec of lightheadedness, HTN on lisinopril 5 and dementia on meds - but he actually has good functioning capabilities, LAbs UR, CXR neg Went to [facility] this week (4-5 days ago), bec of pitting edema legs and soa, NO known CHF< WAs not dcd on lasix but legs better per son. Admitted to be evaluated further for the above sxs ANterior thigh tender to palpation but looks grossly normal HE has ckd stage3, creat now 1.5 SOn claims they did almost 1 mo sounds like HH thinking it was sciatica, seems to have gotten better with short course steroid but stopped bec got better and the effects of fdc steroids. There is no overt back pain or shooting pain all the way to the toes on elevation (NEG STRAIGHT LEG RAISE TEST) Past Medical History Cardiovascular: HTN Renal/: Chronic renal insuff, Benign prostatic enlarg. Past Surgical History Past Surgical History: Other (left shoulder arthroplasty) Family History Family History: Hypertension Social History Smoke: No ALCOHOL: none Drugs: None Current Medications Current Medications Current Medications Aspirin (Ecotrin) 81 mg DAILY08 PO ; Start 06/19/19 at 08:00 Acetaminophen/ Hydrocodone Bitart (Lortab 5/325) 1 tab PRN QID PRN PO PAIN; Start 06/18/19 at 15:00 Lisinopril (Prinivil) 5 mg HS PO ; Start 06/18/19 at 21:00 Sennosides (Senna) 8.6 mg BID PO ; Start 06/18/19 at 21:00 Tamsulosin HCl (Flomax) 0.4 mg DAILY PO ; Start 06/19/19 at 09:00 Calcium Carbonate/ Glycine (Tums) 500 mg PRN AFTMEALHC PRN PO INDIGESTION; Start 06/18/19 at 15:00; Status UNV Ondansetron HCl (Zofran) 4 mg PRN Q6HRS PRN IVP NAUSEA/VOMITING; Start 06/18/19 at 15:00; Status UNV Temazepam (Restoril) 7.5 mg PRN QHS PRN PO INSOMNIA; Start 06/18/19 at 15:00; Status UNV Clonidine HCl (Catapres) 0.1 mg PRN Q1HR PRN PO HYPERTENSION; Start 06/18/19 at 15:00; Status UNV Albuterol Sulfate (Ventolin Neb Soln) 2.5 mg PRN Q4HRS PRN NEB SHORTNESS OF BREATH; Start 06/18/19 at 15:00; Status UNV Guaifenesin/ Codeine Phosphate (Robitussin Ac) 5 ml PRN Q6HRS PRN PO COUGH; Start 06/18/19 at 15:00; Status UNV Acetaminophen/ Hydrocodone Bitart (Lortab 5/325) 1 tab PRN Q4HRS PRN PO PAIN; Start 06/18/19 at 15:00; Status UNV Sodium Chloride 1,000 ml @ 75 mls/hr 1X ONCE IV ; Start 06/18/19 at 15:00; Stop 06/19/19 at 04:19 Active Scripts Active Reported Hydrocodone-Apap 5-325 (Hydrocodone Bit/Acetaminophen) 1 Each Tablet 1 Tab PO PRN Q4-6HRS PRN Flomax (Tamsulosin Hcl) 0.4 Mg Cap.er.24h 0.4 Mg PO DAILY Senokot (Sennosides) 8.6 Mg Tablet 1 Tab PO BID [unknown] Aspir 81 (Aspirin) 81 Mg Tablet.dr 81 Mg PO DAILY08 Lisinopril 5 Mg Tablet 5 Mg PO HS Allergies Allergies: Coded Allergies: Penicillins (Verified Allergy, Intermediate, Hives, 01/06/17) celecoxib (Verified Allergy, Intermediate, Swelling, 01/06/17) ROS Review of System as per hpi, the rest 14 pt neg HE DENIES ANY SENSORY ISSUES WITH THAT LEG Neurological: No Behavorial Changes, No Bowel/Bladder ControlChng, No Confusion, No Dizziness, No Gait Disturbance, No Headaches, No Impaired Coord/balance, No Memory Loss, No Numbness/Tingling, No Seizures, No Speech Problems, No Tremors, No Visual Changes, No Weakness, No Other Skin: No Dry Skin, No Eczema, No Hair Changes, No Lumps, No Mole Changes, No Mottling, No Nail Changes, No Pruritus, No Rash, No Skin Lesion Changes, No Other, No Acne Physical Exam General: Alert, Oriented X3, Cooperative, No acute distress HEENT: Atraumatic, PERRLA, EOMI Lungs: Clear to auscultation, Normal air movement Heart: S1S2, RRR, no thrills, no rubs, no gallops, no murmurs Cardiovascular: S1, S2 Abdomen: Normal bowel sounds, Soft, No tenderness, No hepatosplenomegaly, No masses Male Genitals Exam: normal genitalia, normal prostate Rectal Exam: not examined PELVIC: Nml ext genitalia Extremities: No clubbing, No cyanosis, No edema, Normal pulses, No tenderness/swelling Skin: No rashes, No breakdown, No significant lesion Neuro: Normal gait, Normal speech, Strength at 5/5 X4 ext, Normal tone, Sensation intact, Cranial nerves 3-12 NL, Reflexes 2+ Psych/Mental Status: Mental status NL, Mood NL Vitals Vitals Vital Signs Date Time Temp Pulse Resp B/P (MAP) Pulse Ox O2 Delivery O2 Flow Rate FiO2 06/18/19 11:55 98.1 74 19 167/89 (115) 100 Room Air 98.1 Labs Labs Laboratory Tests Test 06/18/19 13:10 06/18/19 13:35 Urine Collection Type Unknown Urine Color Yellow Urine Clarity Clear Urine pH 5.0 Urine Specific [place] 1.015 Urine Protein Negative mg/dL (NEG-TRACE) Urine Glucose (UA) Negative mg/dL (NEG) Urine Ketones (Stick) Negative mg/dL (NEG) Urine Blood Negative (NEG) Urine Nitrite Negative (NEG) Urine Bilirubin Negative (NEG) Urine Urobilinogen Dipstick 0.2 mg/dL (0.2 mg/dL) Urine Leukocyte Esterase Negative (NEG) Urine RBC 1-2 /HPF (0-2) Urine WBC 0 /HPF (0-4) Urine Squamous Epithelial Cells Few /LPF Urine Bacteria 0 /HPF (0-FEW) Urine Hyaline Casts Few /HPF Urine Mucus Slight /LPF White Blood Count 7.3 x10^3/uL (4.0-11.0) Red Blood Count 3.15 x10^6/uL (4.30-5.70) Hemoglobin 11.0 g/dL (13.0-17.5) Hematocrit 31.8 % (39.0-53.0) Mean Corpuscular Volume 101 fL (79-100) Mean Corpuscular Hemoglobin 35 pg (25-35) Mean Corpuscular Hemoglobin Concent 35 g/dL (31-37) Red Cell Distribution Width 15.9 % (11.5-14.5) Platelet Count 187 x10^3/uL (140-400) Neutrophils (%) (Auto) 69 % (31-73) Lymphocytes (%) (Auto) 22 % (24-48) Monocytes (%) (Auto) 7 % (0-9) Eosinophils (%) (Auto) 1 % (0-3) Basophils (%) (Auto) 1 % (0-3) Neutrophils # (Auto) 5.0 x10^3/uL (1.8-7.7) Lymphocytes # (Auto) 1.6 x10^3/uL (1.0-4.8) Monocytes # (Auto) 0.5 x10^3/uL (0.0-1.1) Eosinophils # (Auto) 0.1 x10^3/uL (0.0-0.7) Basophils # (Auto) 0.1 x10^3/uL (0.0-0.2) Prothrombin Time 13.5 SEC (11.7-14.0) Prothromb Time International Ratio 1.1 (0.8-1.1) Activated Partial Thromboplast Time 29 SEC (24-38) Sodium Level 142 mmol/L (136-145) Potassium Level 4.5 mmol/L (3.5-5.1) Chloride Level 103 mmol/L (98-107) Carbon Dioxide Level 28 mmol/L (21-32) Anion Gap 11 (6-14) Blood Urea Nitrogen 32 mg/dL (8-26) Creatinine 1.5 mg/dL (0.7-1.3) Estimated GFR (Cockcroft-Gault) 44.3 BUN/Creatinine Ratio 21 (6-20) Glucose Level 116 mg/dL (70-99) Calcium Level 9.4 mg/dL (8.5-10.1) Magnesium Level 2.5 mg/dL (1.8-2.4) Total Bilirubin 0.4 mg/dL (0.2-1.0) Aspartate Amino Transf (AST/SGOT) 19 U/L (15-37) Alanine Aminotransferase (ALT/SGPT) 17 U/L (16-63) Alkaline Phosphatase 54 U/L (46-116) Troponin I Quantitative 0.023 ng/mL (0.000-0.055) ZA-Dnm-A-Type Natriuretic Peptide 1908 pg/mL (0-449) Total Protein 8.2 g/dL (6.4-8.2) Albumin 4.4 g/dL (3.4-5.0) Albumin/Globulin Ratio 1.2 (1.0-1.7) Laboratory Tests Test 06/18/19 13:10 06/18/19 13:35 Urine Collection Type Unknown Urine Color Yellow Urine Clarity Clear Urine pH 5.0 Urine Specific [place] 1.015 Urine Protein Negative mg/dL (NEG-TRACE) Urine Glucose (UA) Negative mg/dL (NEG) Urine Ketones (Stick) Negative mg/dL (NEG) Urine Blood Negative (NEG) Urine Nitrite Negative (NEG) Urine Bilirubin Negative (NEG) Urine Urobilinogen Dipstick 0.2 mg/dL (0.2 mg/dL) Urine Leukocyte Esterase Negative (NEG) Urine RBC 1-2 /HPF (0-2) Urine WBC 0 /HPF (0-4) Urine Squamous Epithelial Cells Few /LPF Urine Bacteria 0 /HPF (0-FEW) Urine Hyaline Casts Few /HPF Urine Mucus Slight /LPF White Blood Count 7.3 x10^3/uL (4.0-11.0) Red Blood Count 3.15 x10^6/uL (4.30-5.70) Hemoglobin 11.0 g/dL (13.0-17.5) Hematocrit 31.8 % (39.0-53.0) Mean Corpuscular Volume 101 fL (79-100) Mean Corpuscular Hemoglobin 35 pg (25-35) Mean Corpuscular Hemoglobin Concent 35 g/dL (31-37) Red Cell Distribution Width 15.9 % (11.5-14.5) Platelet Count 187 x10^3/uL (140-400) Neutrophils (%) (Auto) 69 % (31-73) Lymphocytes (%) (Auto) 22 % (24-48) Monocytes (%) (Auto) 7 % (0-9) Eosinophils (%) (Auto) 1 % (0-3) Basophils (%) (Auto) 1 % (0-3) Neutrophils # (Auto) 5.0 x10^3/uL (1.8-7.7) Lymphocytes # (Auto) 1.6 x10^3/uL (1.0-4.8) Monocytes # (Auto) 0.5 x10^3/uL (0.0-1.1) Eosinophils # (Auto) 0.1 x10^3/uL (0.0-0.7) Basophils # (Auto) 0.1 x10^3/uL (0.0-0.2) Prothrombin Time 13.5 SEC (11.7-14.0) Prothromb Time International Ratio 1.1 (0.8-1.1) Activated Partial Thromboplast Time 29 SEC (24-38) Sodium Level 142 mmol/L (136-145) Potassium Level 4.5 mmol/L (3.5-5.1) Chloride Level 103 mmol/L (98-107) Carbon Dioxide Level 28 mmol/L (21-32) Anion Gap 11 (6-14) Blood Urea Nitrogen 32 mg/dL (8-26) Creatinine 1.5 mg/dL (0.7-1.3) Estimated GFR (Cockcroft-Gault) 44.3 BUN/Creatinine Ratio 21 (6-20) Glucose Level 116 mg/dL (70-99) Calcium Level 9.4 mg/dL (8.5-10.1) Magnesium Level 2.5 mg/dL (1.8-2.4) Total Bilirubin 0.4 mg/dL (0.2-1.0) Aspartate Amino Transf (AST/SGOT) 19 U/L (15-37) Alanine Aminotransferase (ALT/SGPT) 17 U/L (16-63) Alkaline Phosphatase 54 U/L (46-116) Troponin I Quantitative 0.023 ng/mL (0.000-0.055) WK-Ddd-F-Type Natriuretic Peptide 1908 pg/mL (0-449) Total Protein 8.2 g/dL (6.4-8.2) Albumin 4.4 g/dL (3.4-5.0) Albumin/Globulin Ratio 1.2 (1.0-1.7) VTE Prophylaxis Ordered VTE Prophylaxis Devices: Yes VTE Pharmacological Prophylaxi: Yes Assessment/Plan Assessment/Plan 1. MYalgia x mos, anterior thigh - add tsh, esr, cpk - IF WILLIAN [facility] MIGHT NEED MUSCLE BIOPSY BY GS 2. Recent tx for sciatica, possible - s/.p short pred 3. Dementia - good iadls - on meds 4. HTN - higher than usual, cont lisinopril 5, add prn clonidine 5. BPH - prev on flomax- request morgan, i will re start flomax, WOF orthostasis 6. HX left shoulder arthroplasty - as seen on CXR 7. SOA with recent pitting edema, BNP 1900- check echo, no signif edema current;y 8. FULL CODE Dw Son at bedside,seen at ER FERMIN MONTANA MD Jun 18, 2019 15:18
[2019-06-18] MEDS ORDERED: QUET25TA5 PO (18:36)
[2019-06-18] MEDS ORDERED: DONE10TA7 PO (18:36)
[2019-06-18] MEDS ORDERED: CHOL10003 PO (18:46)
[2019-06-18] MEDS ORDERED: MEMA10TA PO (18:46)
[2019-06-18 19:00] VITALS: BP 148/84
[2019-06-18] MEDS: QUEtiapine 25 MG TABLET. PO SCH (20:23)
[2019-06-18] MEDS: MEMANTINE 10 MG TABLET. PO SCH (20:23)
[2019-06-18] MEDS: LISINOPRIL 5 MG TABLET. PO SCH (20:23)
[2019-06-18] MEDS: SENNOSIDES 8.6 MG TABLET PO SCH (20:24)
[2019-06-18 23:13] VITALS: BP 157/87
[2019-06-19 03:13] VITALS: BP 110/57
[2019-06-19] MEDS: HYDROcodone/APAP 5/325MG 1 TAB TABLET PO PRN ×2 (03:20→08:51)
[2019-06-19 05:54] LABS: CALCIUM 8.5 mg/dL (8.5-10.1); CREATININE 1.4 mg/dL (0.7-1.3); GFR 47.9; POTASSIUM 4.1 mmol/L (3.5-5.1)
[2019-06-19 07:00] VITALS: BP 131/73
[2019-06-19] MEDS: CHOLECALCIFEROL (VITAMIN D3) 1,000 UNIT TABLET PO SCH (08:49)
[2019-06-19] MEDS: MEMANTINE 10 MG TABLET. PO SCH ×2 (08:49→21:02)
[2019-06-19] MEDS: SENNOSIDES 8.6 MG TABLET PO SCH ×2 (08:50→21:02)
[2019-06-19] MEDS: MULTIVITAMIN with MINERAL TABLET. PO SCH (08:50)
[2019-06-19] MEDS: QUEtiapine 25 MG TABLET. PO SCH ×2 (08:50→21:02)
[2019-06-19] MEDS: DONEPEZIL HCL 5 MG TABLET. PO SCH (08:50)
[2019-06-19] MEDS: ASPIRIN ENTERIC COATED 81 MG TABLET.DR. PO SCH (08:50)
[2019-06-19] MEDS: VITAMIN B12,B9,B6 COMPLEX 1 TABLET. PO SCH (08:53)
[2019-06-19] MEDS ORDERED: TAMSULOSIN 0.4 MG CAP.ER.24H. PO SCH (09:00)
--- NOTE | 2019-06-19 10:43 | PDOC ---
[employer] PROGRESS NOTE Chief Complaint Chief Complaint 0. CHF 1. Myalgia x mos, anterior thigh - add tsh, esr, cpk - IF [facility] MIGHT NEED MUSCLE BIOPSY BY GS 2. Recent tx for sciatica, possible - s/.p short pred 3. Dementia - good iadls - on meds 4. HTN - higher than usual, cont lisinopril 5, add prn clonidine 5. BPH - prev on flomax- request morgan, i will re start flomax, WOF orthostasis 6. HX left shoulder arthroplasty - as seen on CXR 7. SOA with recent pitting edema, BNP 1900- check echo, no signif edema current;y 8. FULL CODE History of Present Illness History of Present Illness [id number] Patient seen and examined Discussed with RN I'm the consult cardiology because his BNP level is high We are also going to check lower extremity Dopplers to rule out DVT Vitals/I&O Vitals/I&O: Vital Signs Date Time Temp Pulse Resp B/P (MAP) Pulse Ox O2 Delivery O2 Flow Rate FiO2 06/19/19 08:51 97 Room Air 06/19/19 07:00 97.7 97 18 131/73 (92) 97.7 I & O 06/18/19 06/18/19 06/19/19 15:00 23:00 07:00 Intake Total 240 ml 200 ml Balance 240 ml 200 ml Physical Exam General: Cooperative, No acute distress, Other (pleasantly confused) Heart: Regular rate Lungs: Crackles Abdomen: Normal bowel sounds, Soft, No tenderness, No hepatosplenomegaly, No masses Extremities: No clubbing, No cyanosis, No edema, Normal pulses, No tenderness/swelling Skin: No rashes, No breakdown, No significant lesion Labs Labs: Laboratory Tests Test 06/18/19 13:10 06/18/19 13:35 06/19/19 05:10 Urine Collection Type Unknown Urine Color Yellow Urine Clarity Clear Urine pH 5.0 Urine Specific [place] 1.015 Urine Protein Negative mg/dL (NEG-TRACE) Urine Glucose (UA) Negative mg/dL (NEG) Urine Ketones (Stick) Negative mg/dL (NEG) Urine Blood Negative (NEG) Urine Nitrite Negative (NEG) Urine Bilirubin Negative (NEG) Urine Urobilinogen Dipstick 0.2 mg/dL (0.2 mg/dL) Urine Leukocyte Esterase Negative (NEG) Urine RBC 1-2 /HPF (0-2) Urine WBC 0 /HPF (0-4) Urine Squamous Epithelial Cells Few /LPF Urine Bacteria 0 /HPF (0-FEW) Urine Hyaline Casts Few /HPF Urine Mucus Slight /LPF White Blood Count 7.3 x10^3/uL (4.0-11.0) Red Blood Count 3.15 x10^6/uL (4.30-5.70) Hemoglobin 11.0 g/dL (13.0-17.5) Hematocrit 31.8 % (39.0-53.0) Mean Corpuscular Volume 101 fL (79-100) Mean Corpuscular Hemoglobin 35 pg (25-35) Mean Corpuscular Hemoglobin Concent 35 g/dL (31-37) Red Cell Distribution Width 15.9 % (11.5-14.5) Platelet Count 187 x10^3/uL (140-400) Neutrophils (%) (Auto) 69 % (31-73) Lymphocytes (%) (Auto) 22 % (24-48) Monocytes (%) (Auto) 7 % (0-9) Eosinophils (%) (Auto) 1 % (0-3) Basophils (%) (Auto) 1 % (0-3) Neutrophils # (Auto) 5.0 x10^3/uL (1.8-7.7) Lymphocytes # (Auto) 1.6 x10^3/uL (1.0-4.8) Monocytes # (Auto) 0.5 x10^3/uL (0.0-1.1) Eosinophils # (Auto) 0.1 x10^3/uL (0.0-0.7) Basophils # (Auto) 0.1 x10^3/uL (0.0-0.2) Erythrocyte Sedimentation Rate 35 (0-15) Prothrombin Time 13.5 SEC (11.7-14.0) Prothromb Time International Ratio 1.1 (0.8-1.1) Activated Partial Thromboplast Time 29 SEC (24-38) Sodium Level 142 mmol/L (136-145) 142 mmol/L (136-145) Potassium Level 4.5 mmol/L (3.5-5.1) 4.1 mmol/L (3.5-5.1) Chloride Level 103 mmol/L (98-107) 106 mmol/L (98-107) Carbon Dioxide Level 28 mmol/L (21-32) 29 mmol/L (21-32) Anion Gap 11 (6-14) 7 (6-14) Blood Urea Nitrogen 32 mg/dL (8-26) 26 mg/dL (8-26) Creatinine 1.5 mg/dL (0.7-1.3) 1.4 mg/dL (0.7-1.3) Estimated GFR (Cockcroft-Gault) 44.3 47.9 BUN/Creatinine Ratio 21 (6-20) Glucose Level 116 mg/dL (70-99) 87 mg/dL (70-99) Calcium Level 9.4 mg/dL (8.5-10.1) 8.5 mg/dL (8.5-10.1) Magnesium Level 2.5 mg/dL (1.8-2.4) Total Bilirubin 0.4 mg/dL (0.2-1.0) Aspartate Amino Transf (AST/SGOT) 19 U/L (15-37) Alanine Aminotransferase (ALT/SGPT) 17 U/L (16-63) Alkaline Phosphatase 54 U/L (46-116) Creatine Kinase 42 U/L (39-308) Troponin I Quantitative 0.023 ng/mL (0.000-0.055) GB-Jmf-N-Type Natriuretic Peptide 1908 pg/mL (0-449) Total Protein 8.2 g/dL (6.4-8.2) Albumin 4.4 g/dL (3.4-5.0) Albumin/Globulin Ratio 1.2 (1.0-1.7) Thyroid Stimulating Hormone (TSH) 0.872 uIU/mL (0.358-3.74) Review of Systems Review of Systems: Complains of weakness Complains of leg pain Assessment and Plan Assessmemt and Plan Problems Medical Problems: (1) Short of breath on exertion Status: Acute 0. CHF 1. Myalgia x mos, anterior thigh - add tsh, esr, cpk - 2. Recent tx for sciatica, possible - s/.p short pred 3. Dementia - good iadls - on meds 4. HTN - higher than usual, cont lisinopril 5, add prn clonidine 5. BPH - prev on flomax- request morgan, i will re start flomax, WOF orthostasis 6. HX left shoulder arthroplasty - as seen on CXR 7. SOA with recent pitting edema, BNP 1900- check echo, no signif edema current;y 8. FULL CODE Plan Consult cardiology Laboratory Dopplers to rule out DVT Home meds PT OT Frequent labs See above Comment Review of Relevant I have reviewed the following items get (where applicable) has been applied. Medications: Current Medications Medications (Trade) Dose Ordered Sig/Alpa Route PRN Reason Start Time Stop Time Status Last Admin Dose Admin Aspirin (Ecotrin) 81 mg DAILY08 PO 06/19/19 08:00 06/19/19 08:50 Lisinopril (Prinivil) 5 mg HS PO 06/18/19 21:00 06/18/19 20:23 Sennosides (Senna) 8.6 mg BID PO 06/18/19 21:00 06/19/19 08:50 Acetaminophen/ Hydrocodone Bitart (Lortab 5/325) 1 tab PRN Q4HRS PRN PO PAIN 06/18/19 15:00 06/19/19 10:33 DC 06/19/19 08:51 Sodium Chloride 1,000 ml @ 75 mls/hr 1X ONCE IV 06/18/19 15:00 06/19/19 04:19 DC 06/18/19 20:26 Memantine (Namenda) 10 mg BID PO 06/18/19 21:00 06/19/19 08:49 Donepezil HCl (Aricept) 5 mg DAILY PO 06/19/19 09:00 06/19/19 08:50 Multivitamins (Thera M Plus) 1 tab DAILY PO 06/19/19 09:00 06/19/19 08:50 Quetiapine Fumarate (SEROquel) 25 mg BID PO 06/18/19 21:00 06/19/19 08:50 Vitamin D (Vitamin D3) 1,000 unit DAILY PO 06/19/19 09:00 06/19/19 08:49 KEON ESPINOZA III DO Jun 19, 2019 10:43
[2019-06-19 11:00] VITALS: BP 119/53
[2019-06-19] MEDS: HYDROcodone/APAP 10/325 1 TAB TABLET PO PRN ×2 (11:29→17:08)
[2019-06-19] MEDS: tiZANidine 4 MG TABLET. PO PRN (11:29)
[2019-06-19] MEDS: predniSONE 10 MG TABLET PO SCH (11:29)
[2019-06-19] MEDS: PANTOPRAZOLE 40 MG TABLET.DR. PO SCH (11:30)
--- NOTE | 2019-06-19 11:51 | PDOC2 ---
CONSULT Date of Consult Date of Consult DATE: 06/19/19 TIME: 11:51 Reason for Consult Reason for Consult: Elevated BNP level Referring Physician Referring Physician: Dr. Pacheco Identification/Chief Complaint Chief Complaint Right leg pain Source Source: Chart review, Patient History of Present Illness Reason for Visit: 89-year-old male with history of sciatica presented with presented with right leg pain that he described as cramping sensation. He also complained of dyspnea on exertion but denied any chest pain, orthopnea/PND, palpitations or syncope. His BNP level was elevated prompting cardiology consultation. He was apparently told that he had leak in his heart when he was 5 years old but has not had any further workup recently. Past Medical History Cardiovascular: HTN Pulmonary: COPD Renal/: Chronic renal insuff, Benign prostatic enlarg. Past Surgical History Past Surgical History Hip replacement, knee replacement, tonsillectomy, bilateral carpal tunnel release surgeries Past Surgical History: Other (left shoulder arthroplasty) Family History Family History: Hypertension Social History No ALCOHOL: none Drugs: None Current Problem List Problem List Problems Medical Problems: (1) Short of breath on exertion Status: Acute Current Medications Current Medications Current Medications Aspirin (Ecotrin) 81 mg DAILY08 PO Last administered on 06/19/19at 08:50; Start 06/19/19 at 08:00 Acetaminophen/ Hydrocodone Bitart (Lortab 5/325) 1 tab PRN QID PRN PO PAIN; Start 06/18/19 at 15:00; Stop 06/18/19 at 15:10; Status DC Lisinopril (Prinivil) 5 mg HS PO Last administered on 06/18/19at 20:23; Start 06/18/19 at 21:00 Sennosides (Senna) 8.6 mg BID PO Last administered on 06/19/19at 08:50; Start 06/18/19 at 21:00 Tamsulosin HCl (Flomax) 0.4 mg DAILY PO ; Start 06/19/19 at 09:00; Stop 06/18/19 at 20:00; Status DC Calcium Carbonate/ Glycine (Tums) 500 mg PRN AFTMEALHC PRN PO INDIGESTION; Start 06/18/19 at 15:00 Ondansetron HCl (Zofran) 4 mg PRN Q6HRS PRN IVP NAUSEA/VOMITING; Start 06/18/19 at 15:00 Temazepam (Restoril) 7.5 mg PRN QHS PRN PO INSOMNIA; Start 06/18/19 at 15:00 Clonidine HCl (Catapres) 0.1 mg PRN Q1HR PRN PO HYPERTENSION; Start 06/18/19 at 15:00 Albuterol Sulfate (Ventolin Neb Soln) 2.5 mg PRN Q4HRS PRN NEB SHORTNESS OF BREATH; Start 06/18/19 at 15:00 Guaifenesin/ Codeine Phosphate (Robitussin Ac) 5 ml PRN Q6HRS PRN PO COUGH; Start 06/18/19 at 15:00 Acetaminophen/ Hydrocodone Bitart (Lortab 5/325) 1 tab PRN Q4HRS PRN PO PAIN Last administered on 06/19/19at 08:51; Start 06/18/19 at 15:00; Stop 06/19/19 at 10:33; Status DC Sodium Chloride 1,000 ml @ 75 mls/hr 1X ONCE IV Last administered on 06/18/19at 20:26; Start 06/18/19 at 15:00; Stop 06/19/19 at 04:19; Status DC Memantine (Namenda) 10 mg BID PO Last administered on 06/19/19at 08:49; Start 06/18/19 at 21:00 Donepezil HCl (Aricept) 5 mg DAILY PO Last administered on 06/19/19at 08:50; Start 06/19/19 at 09:00 Multivitamins (Thera M Plus) 1 tab DAILY PO Last administered on 06/19/19at 08:50; Start 06/19/19 at 09:00 Vitamin B Complex (Folbic Tablet) 1 tab DAILY PO ; Start 06/19/19 at 09:00 Quetiapine Fumarate (SEROquel) 25 mg BID PO Last administered on 06/19/19at 08:50; Start 06/18/19 at 21:00 Vitamin D (Vitamin D3) 1,000 unit DAILY PO Last administered on 06/19/19at 08:49; Start 06/19/19 at 09:00 Prednisone (Prednisone) 10 mg DAILY PO Last administered on 06/19/19at 11:29; Start 06/19/19 at 10:30 Pantoprazole Sodium (Protonix) 40 mg DAILYAC PO Last administered on 06/19/19at 11:30; Start 06/19/19 at 10:30 Tizanidine HCl (Zanaflex) 4 mg PRN Q8HRS PRN PO MUSCLE SPASMS Last administered on 06/19/19at 11:29; Start 06/19/19 at 10:30 Acetaminophen/ Hydrocodone Bitart (Lortab 10/325) 1 tab PRN Q6HRS PRN PO PAIN Last administered on 06/19/19at 11:29; Start 06/19/19 at 10:30 Active Scripts Active Reported Namenda (Memantine Hcl) 10 Mg Tablet 1 Tab PO BID Vitamin D3 (Cholecalciferol (Vitamin D3)) 1,000 Unit Tablet 1 Tab PO DAILY Donepezil Hcl 10 Mg Tablet 1 Tab PO DAILY Seroquel (Quetiapine Fumarate) 25 Mg Tablet 25 Mg PO BID Hydrocodone-Apap 5-325 (Hydrocodone Bit/Acetaminophen) 1 Each Tablet 1 Tab PO PRN Q4-6HRS PRN Senokot (Sennosides) 8.6 Mg Tablet 1 Tab PO BID Aspir 81 (Aspirin) 81 Mg Tablet.dr 81 Mg PO DAILY08 Lisinopril 5 Mg Tablet 5 Mg PO HS Allergies Allergies: Coded Allergies: Penicillins (Verified Allergy, Intermediate, Hives, 01/06/17) celecoxib (Verified Allergy, Intermediate, Swelling, 01/06/17) ROS General: YES: Fatigue PSYCHOLOGICAL ROS: No: Hallucinations Eyes: No Loss of vision HEENT: No: Epistaxis Respiratory: YES: Shortness of breath; No: Hemoptysis Cardiovascular: No Chest Pain Gastrointestinal: No Nausea, No Vomiting Genitourinary: No Hematuria Neurological: No Seizures Skin: No Rash Physical Exam General: Alert HEENT: Atraumatic Lungs: Clear to auscultation Heart: Regular rate Abdomen: Soft Extremities: Other (1+ pitting pedal edema) Psych/Mental Status: Mood NL Vitals VITALS Vital Signs Date Time Temp Pulse Resp B/P (MAP) Pulse Ox O2 Delivery O2 Flow Rate FiO2 06/19/19 11:29 97 Room Air 06/19/19 11:00 97.4 72 18 119/53 (75) 97.4 Labs Labs Laboratory Tests Test 06/18/19 13:10 06/18/19 13:35 06/19/19 05:10 Urine Collection Type Unknown Urine Color Yellow Urine Clarity Clear Urine pH 5.0 Urine Specific [place] 1.015 Urine Protein Negative mg/dL (NEG-TRACE) Urine Glucose (UA) Negative mg/dL (NEG) Urine Ketones (Stick) Negative mg/dL (NEG) Urine Blood Negative (NEG) Urine Nitrite Negative (NEG) Urine Bilirubin Negative (NEG) Urine Urobilinogen Dipstick 0.2 mg/dL (0.2 mg/dL) Urine Leukocyte Esterase Negative (NEG) Urine RBC 1-2 /HPF (0-2) Urine WBC 0 /HPF (0-4) Urine Squamous Epithelial Cells Few /LPF Urine Bacteria 0 /HPF (0-FEW) Urine Hyaline Casts Few /HPF Urine Mucus Slight /LPF White Blood Count 7.3 x10^3/uL (4.0-11.0) Red Blood Count 3.15 x10^6/uL (4.30-5.70) Hemoglobin 11.0 g/dL (13.0-17.5) Hematocrit 31.8 % (39.0-53.0) Mean Corpuscular Volume 101 fL (79-100) Mean Corpuscular Hemoglobin 35 pg (25-35) Mean Corpuscular Hemoglobin Concent 35 g/dL (31-37) Red Cell Distribution Width 15.9 % (11.5-14.5) Platelet Count 187 x10^3/uL (140-400) Neutrophils (%) (Auto) 69 % (31-73) Lymphocytes (%) (Auto) 22 % (24-48) Monocytes (%) (Auto) 7 % (0-9) Eosinophils (%) (Auto) 1 % (0-3) Basophils (%) (Auto) 1 % (0-3) Neutrophils # (Auto) 5.0 x10^3/uL (1.8-7.7) Lymphocytes # (Auto) 1.6 x10^3/uL (1.0-4.8) Monocytes # (Auto) 0.5 x10^3/uL (0.0-1.1) Eosinophils # (Auto) 0.1 x10^3/uL (0.0-0.7) Basophils # (Auto) 0.1 x10^3/uL (0.0-0.2) Erythrocyte Sedimentation Rate 35 (0-15) Prothrombin Time 13.5 SEC (11.7-14.0) Prothromb Time International Ratio 1.1 (0.8-1.1) Activated Partial Thromboplast Time 29 SEC (24-38) Sodium Level 142 mmol/L (136-145) 142 mmol/L (136-145) Potassium Level 4.5 mmol/L (3.5-5.1) 4.1 mmol/L (3.5-5.1) Chloride Level 103 mmol/L (98-107) 106 mmol/L (98-107) Carbon Dioxide Level 28 mmol/L (21-32) 29 mmol/L (21-32) Anion Gap 11 (6-14) 7 (6-14) Blood Urea Nitrogen 32 mg/dL (8-26) 26 mg/dL (8-26) Creatinine 1.5 mg/dL (0.7-1.3) 1.4 mg/dL (0.7-1.3) Estimated GFR (Cockcroft-Gault) 44.3 47.9 BUN/Creatinine Ratio 21 (6-20) Glucose Level 116 mg/dL (70-99) 87 mg/dL (70-99) Calcium Level 9.4 mg/dL (8.5-10.1) 8.5 mg/dL (8.5-10.1) Magnesium Level 2.5 mg/dL (1.8-2.4) Total Bilirubin 0.4 mg/dL (0.2-1.0) Aspartate Amino Transf (AST/SGOT) 19 U/L (15-37) Alanine Aminotransferase (ALT/SGPT) 17 U/L (16-63) Alkaline Phosphatase 54 U/L (46-116) Creatine Kinase 42 U/L (39-308) Troponin I Quantitative 0.023 ng/mL (0.000-0.055) ZJ-Eam-T-Type Natriuretic Peptide 1908 pg/mL (0-449) Total Protein 8.2 g/dL (6.4-8.2) Albumin 4.4 g/dL (3.4-5.0) Albumin/Globulin Ratio 1.2 (1.0-1.7) Thyroid Stimulating Hormone (TSH) 0.872 uIU/mL (0.358-3.74) Laboratory Tests Test 06/18/19 13:10 06/18/19 13:35 06/19/19 05:10 Urine Collection Type Unknown Urine Color Yellow Urine Clarity Clear Urine pH 5.0 Urine Specific [place] 1.015 Urine Protein Negative mg/dL (NEG-TRACE) Urine Glucose (UA) Negative mg/dL (NEG) Urine Ketones (Stick) Negative mg/dL (NEG) Urine Blood Negative (NEG) Urine Nitrite Negative (NEG) Urine Bilirubin Negative (NEG) Urine Urobilinogen Dipstick 0.2 mg/dL (0.2 mg/dL) Urine Leukocyte Esterase Negative (NEG) Urine RBC 1-2 /HPF (0-2) Urine WBC 0 /HPF (0-4) Urine Squamous Epithelial Cells Few /LPF Urine Bacteria 0 /HPF (0-FEW) Urine Hyaline Casts Few /HPF Urine Mucus Slight /LPF White Blood Count 7.3 x10^3/uL (4.0-11.0) Red Blood Count 3.15 x10^6/uL (4.30-5.70) Hemoglobin 11.0 g/dL (13.0-17.5) Hematocrit 31.8 % (39.0-53.0) Mean Corpuscular Volume 101 fL (79-100) Mean Corpuscular Hemoglobin 35 pg (25-35) Mean Corpuscular Hemoglobin Concent 35 g/dL (31-37) Red Cell Distribution Width 15.9 % (11.5-14.5) Platelet Count 187 x10^3/uL (140-400) Neutrophils (%) (Auto) 69 % (31-73) Lymphocytes (%) (Auto) 22 % (24-48) Monocytes (%) (Auto) 7 % (0-9) Eosinophils (%) (Auto) 1 % (0-3) Basophils (%) (Auto) 1 % (0-3) Neutrophils # (Auto) 5.0 x10^3/uL (1.8-7.7) Lymphocytes # (Auto) 1.6 x10^3/uL (1.0-4.8) Monocytes # (Auto) 0.5 x10^3/uL (0.0-1.1) Eosinophils # (Auto) 0.1 x10^3/uL (0.0-0.7) Basophils # (Auto) 0.1 x10^3/uL (0.0-0.2) Erythrocyte Sedimentation Rate 35 (0-15) Prothrombin Time 13.5 SEC (11.7-14.0) Prothromb Time International Ratio 1.1 (0.8-1.1) Activated Partial Thromboplast Time 29 SEC (24-38) Sodium Level 142 mmol/L (136-145) 142 mmol/L (136-145) Potassium Level 4.5 mmol/L (3.5-5.1) 4.1 mmol/L (3.5-5.1) Chloride Level 103 mmol/L (98-107) 106 mmol/L (98-107) Carbon Dioxide Level 28 mmol/L (21-32) 29 mmol/L (21-32) Anion Gap 11 (6-14) 7 (6-14) Blood Urea Nitrogen 32 mg/dL (8-26) 26 mg/dL (8-26) Creatinine 1.5 mg/dL (0.7-1.3) 1.4 mg/dL (0.7-1.3) Estimated GFR (Cockcroft-Gault) 44.3 47.9 BUN/Creatinine Ratio 21 (6-20) Glucose Level 116 mg/dL (70-99) 87 mg/dL (70-99) Calcium Level 9.4 mg/dL (8.5-10.1) 8.5 mg/dL (8.5-10.1) Magnesium Level 2.5 mg/dL (1.8-2.4) Total Bilirubin 0.4 mg/dL (0.2-1.0) Aspartate Amino Transf (AST/SGOT) 19 U/L (15-37) Alanine Aminotransferase (ALT/SGPT) 17 U/L (16-63) Alkaline Phosphatase 54 U/L (46-116) Creatine Kinase 42 U/L (39-308) Troponin I Quantitative 0.023 ng/mL (0.000-0.055) KM-Sle-P-Type Natriuretic Peptide 1908 pg/mL (0-449) Total Protein 8.2 g/dL (6.4-8.2) Albumin 4.4 g/dL (3.4-5.0) Albumin/Globulin Ratio 1.2 (1.0-1.7) Thyroid Stimulating Hormone (TSH) 0.872 uIU/mL (0.358-3.74) Assessment/Plan Assessment/Plan 1. Right leg pain, myalgia, sciatica: Lower extremity venous duplex scan did not show any DVT. Treat per primary team 2. Elevated BNP level: Chest x-ray did not show any evidence of congestive heart failure. Dyspnea on exertion could be secondary to COPD. Check 2-D echo to assess LV systolic function. 3. Hypertension: Better controlled since admission Thank you for your consultation. NIKOLAS PHAN MD Jun 19, 2019 11:51
[2019-06-19 15:00] VITALS: BP 87/53
--- NOTE | 2019-06-19 18:36 | CONS ---
DATE OF CONSULTATION: 06/19/2019 ATTENDING PHYSICIAN: Ricarda Solis MD REASON FOR CONSULTATION: The patient was seen at the request of Dr. Solis for rehab evaluation. LOCATION: He is in room 650. HISTORY OF PRESENT ILLNESS: This is an 89-year-old male known to me. The patient was admitted through the Emergency Room on 06/18/2019 with right thigh area pain. He is having this pain going on for a while. Denies any injury or any recent fall. He is having difficulty to stand on his right leg because of the pain. He was first diagnosed as having sciatica and completed 2 months of home physical therapy without any help. He was seen by Dr. Castaneda, orthopedic surgeon who did not find any diagnosis after x-rays. He had ultrasound earlier this week. The patient also had some shortness of breath with exertion for several months. He denies any trouble with his bowel or bladder control. The patient denies any numbness or tingling sensation in the extremities. PAST MEDICAL HISTORY: Hypertension, chronic renal insufficiency, emphysema, heart murmur, stage 3 kidney disease, bilateral hip and knee replacement and also left shoulder arthroplasty, tonsillectomy, and bilateral carpal tunnel release. ALLERGIES: THE PATIENT IS KNOWN ALLERGIC TO PENICILLIN AND CELEBREX. PHYSICAL EXAMINATION: On physical examination today revealed an elderly male. He is alert, oriented to time, place, person and circumstance and follows commands appropriately, moves all 4 extremities voluntarily where he had 4+/5 grade muscle strength. He had painful range of motion on both hip joints. He had localized tenderness to palpation over right sacroiliac joint area, right hamstring tendon attachment to ischial tuberosity area and also over hip adductor muscles, mainly on the right side. He had pain reproduced on resist to knee extension bilaterally. He had painful range of motion of both hip and knee joints. The patient had equal perception of touch and pinprick sensation bilaterally. Deep tendon reflexes are absent at both knees and ankles. Straight leg raising test is negative bilaterally. His skin is intact. He requires some help with transfers. Once up, he is walking using a roller walker. He apparently had been using a roller walker to walk around and he lives by himself. ASSESSMENT: Chronic lower back pain from degenerative disk disease of lumbar vertebrae with associated tendinitis, right hip and hip adductor muscle strain in a patient status post bilateral total knee and total hip arthroplasty to rule out associated lumbar spinal stenosis. He also presents with clinical evidence of peripheral neuropathy. The patient with known hypertension, chronic kidney disease stage 3, emphysema, heart murmur. RECOMMENDATIONS: To obtain MRI scan of his lumbar vertebrae without contrast to make sure he does not have any new disk problem or lumbar spinal stenosis to consider injecting painful right sacroiliac joint area. If his pain persists, to try prednisone orally and Protonix to help protect his stomach and increase the dose of hydrocodone. Agree with the plan for physical therapy and occupational therapy. Dr. Solis, I appreciate asking me to participate in care of this interesting patient. I will be glad to follow him with you as needed for the rehabilitation. JASPREET HO MD DR: SAE/angelica JOB#: [id number] / [id number]
[2019-06-19 19:49] VITALS: BP 122/69
[2019-06-19] MEDS: LISINOPRIL 5 MG TABLET. PO SCH (21:03)
[2019-06-19 23:30] VITALS: BP 102/57
[2019-06-20 03:12] VITALS: BP 126/56
[2019-06-20 04:52] LABS: BASO # 0.1 x10^3/uL (0.0-0.2); BASO % 1 % (0-3); EOS # 0.1 x10^3/uL (0.0-0.7); EOS % 2 % (0-3); HEMATOCRIT 26.8 % (39.0-53.0); HEMOGLOBIN 9.2 g/dL (13.0-17.5); LYMPH % 29 % (24-48); MEAN CORPUSCULAR HEMOGLOBIN 35 pg (25-35); MEAN CORPUSCULAR HGB CONC 34 g/dL (31-37); MEAN CORPUSCULAR VOLUME 102 fL (79-100); MONO # 0.7 x10^3/uL (0.0-1.1); MONO % 10 % (0-9); NEUT # 3.9 x10^3/uL (1.8-7.7); NEUT % 58 % (31-73); PLATELET COUNT 156 x10^3/uL (140-400); RED BLOOD COUNT 2.64 x10^6/uL (4.30-5.70); WHITE BLOOD COUNT 6.8 x10^3/uL (4.0-11.0)
[2019-06-20 05:12] LABS: ALBUMIN 3.4 g/dL (3.4-5.0); ALBUMIN/GLOBULIN RATIO 1.1 (1.0-1.7); CREATININE 1.5 mg/dL (0.7-1.3); GFR 44.3; POTASSIUM 4.5 mmol/L (3.5-5.1); TOTAL BILIRUBIN 0.4 mg/dL (0.2-1.0); TOTAL PROTEIN 6.5 g/dL (6.4-8.2)
[2019-06-20 07:00] VITALS: BP 103/52
[2019-06-20] MEDS: CHOLECALCIFEROL (VITAMIN D3) 1,000 UNIT TABLET PO SCH (10:03)
[2019-06-20] MEDS: SENNOSIDES 8.6 MG TABLET PO SCH ×2 (10:03→21:24)
[2019-06-20] MEDS: tiZANidine 4 MG TABLET. PO PRN (10:04)
[2019-06-20] MEDS: predniSONE 10 MG TABLET PO SCH (10:04)
[2019-06-20] MEDS: QUEtiapine 25 MG TABLET. PO SCH ×2 (10:04→21:24)
[2019-06-20] MEDS: MEMANTINE 10 MG TABLET. PO SCH ×2 (10:04→21:25)
[2019-06-20] MEDS: MULTIVITAMIN with MINERAL TABLET. PO SCH (10:04)
[2019-06-20] MEDS: ASPIRIN ENTERIC COATED 81 MG TABLET.DR. PO SCH (10:04)
[2019-06-20] MEDS: HYDROcodone/APAP 10/325 1 TAB TABLET PO PRN (10:04)
[2019-06-20] MEDS: PANTOPRAZOLE 40 MG TABLET.DR. PO SCH (10:04)
[2019-06-20] MEDS: VITAMIN B12,B9,B6 COMPLEX 1 TABLET. PO SCH (10:05)
[2019-06-20] MEDS: DONEPEZIL HCL 5 MG TABLET. PO SCH (10:05)
[2019-06-20 11:00] VITALS: BP 95/42
--- NOTE | 2019-06-20 11:16 | PDOC ---
[employer] PROGRESS NOTE Chief Complaint Chief Complaint 0. CHF 1. Myalgia x mos, anterior thigh - add tsh, esr, cpk - IF [facility] MIGHT NEED MUSCLE BIOPSY BY GS 2. Recent tx for sciatica, possible - s/.p short pred 3. Dementia - good iadls - on meds 4. HTN - higher than usual, cont lisinopril 5, add prn clonidine 5. BPH - prev on flomax- request morgan, i will re start flomax, WOF orthostasis 6. HX left shoulder arthroplasty - as seen on CXR 7. SOA with recent pitting edema, BNP 1900- check echo, no signif edema currently Anemia FULL CODE History of Present Illness History of Present Illness 06/20/2019 Pt seen and examined. Pt sitting in chair and conversant, breathing comfortably on room air. Pt not oriented to date. Doppler of lower extremities was negative for DVT. [id number] Patient seen and examined Discussed with RN I'm the consult cardiology because his BNP level is high We are also going to check lower extremity Dopplers to rule out DVT Vitals/I&O Vitals/I&O: Vital Signs Date Time Temp Pulse Resp B/P (MAP) Pulse Ox O2 Delivery O2 Flow Rate FiO2 06/20/19 10:04 95 Room Air 06/20/19 07:00 98.5 60 16 103/52 (69) 98.5 I & O 06/19/19 06/19/19 06/20/19 15:00 23:00 07:00 Intake Total 0 ml 600 ml Balance 0 ml 600 ml Physical Exam General: Alert, No acute distress Heart: Regular rate Lungs: Crackles Abdomen: Soft Extremities: Other (1+ pitting pedal edema) Skin: No rashes, No breakdown, No significant lesion Labs Labs: Laboratory Tests Test 06/20/19 03:35 White Blood Count 6.8 x10^3/uL (4.0-11.0) Red Blood Count 2.64 x10^6/uL (4.30-5.70) Hemoglobin 9.2 g/dL (13.0-17.5) Hematocrit 26.8 % (39.0-53.0) Mean Corpuscular Volume 102 fL (79-100) Mean Corpuscular Hemoglobin 35 pg (25-35) Mean Corpuscular Hemoglobin Concent 34 g/dL (31-37) Red Cell Distribution Width 16.0 % (11.5-14.5) Platelet Count 156 x10^3/uL (140-400) Neutrophils (%) (Auto) 58 % (31-73) Lymphocytes (%) (Auto) 29 % (24-48) Monocytes (%) (Auto) 10 % (0-9) Eosinophils (%) (Auto) 2 % (0-3) Basophils (%) (Auto) 1 % (0-3) Neutrophils # (Auto) 3.9 x10^3/uL (1.8-7.7) Lymphocytes # (Auto) 2.0 x10^3/uL (1.0-4.8) Monocytes # (Auto) 0.7 x10^3/uL (0.0-1.1) Eosinophils # (Auto) 0.1 x10^3/uL (0.0-0.7) Basophils # (Auto) 0.1 x10^3/uL (0.0-0.2) Sodium Level 144 mmol/L (136-145) Potassium Level 4.5 mmol/L (3.5-5.1) Chloride Level 107 mmol/L (98-107) Carbon Dioxide Level 30 mmol/L (21-32) Anion Gap 7 (6-14) Blood Urea Nitrogen 28 mg/dL (8-26) Creatinine 1.5 mg/dL (0.7-1.3) Estimated GFR (Cockcroft-Gault) 44.3 BUN/Creatinine Ratio 19 (6-20) Glucose Level 104 mg/dL (70-99) Calcium Level 9.0 mg/dL (8.5-10.1) Total Bilirubin 0.4 mg/dL (0.2-1.0) Aspartate Amino Transf (AST/SGOT) 15 U/L (15-37) Alanine Aminotransferase (ALT/SGPT) 15 U/L (16-63) Alkaline Phosphatase 41 U/L (46-116) Total Protein 6.5 g/dL (6.4-8.2) Albumin 3.4 g/dL (3.4-5.0) Albumin/Globulin Ratio 1.1 (1.0-1.7) Review of Systems Review of Systems: Dyspnea on exertion No chest pain Assessment and Plan Assessmemt and Plan Problems Medical Problems: (1) Short of breath on exertion Status: Acute Anemia - Hg 9.2 A.M. 06/20/19 CHF Myalgia x mos, anterior thigh - add tsh, esr, cpk - Recent tx for sciatica, possible - s/.p short pred Dementia - good iadls - on meds, not oriented to year HTN - higher than usual, cont lisinopril 5, add prn clonidine BPH - prev on flomax- request morgan, i will re start flomax, WOF orthostasis HX left shoulder arthroplasty - as seen on CXR SOA with recent pitting edema, BNP 1900- check echo, no signif edema currently FULL CODE Plan Trend Hemoglobin, recheck Await GI input Await cardiology input Home meds PT OT CBC, CMP Comment Review of Relevant I have reviewed the following items get (where applicable) has been applied. KEON ESPINOZA III DO Jun 20, 2019 11:16
--- NOTE | 2019-06-20 12:23 | PDOC ---
PROGRESS NOTES Subjective Subjective No new complaints Objective Objective Vital Signs Date Time Temp Pulse Resp B/P (MAP) Pulse Ox O2 Delivery O2 Flow Rate FiO2 06/20/19 11:15 95 Room Air 06/20/19 07:00 98.5 60 16 103/52 (69) 98.5 Intake and Output 06/20/19 07:00 Intake Total 600 ml Balance 600 ml Intake Oral 600 ml # Voids 5 Physical Exam Abdomen: Soft Heart: Regular rate Extremities: Other (1+ pitting pedal edema) General: Alert, No acute distress HEENT: Atraumatic Lungs: Clear to auscultation Neuro: Normal gait, Normal speech, Strength at 5/5 X4 ext, Normal tone, Sensation intact, Cranial nerves 3-12 NL, Reflexes 2+ Psych/Mental Status: Mood NL Skin: No rashes, No breakdown, No significant lesion Assessment Assessment 1. Right leg pain, myalgia, sciatica: Lower extremity venous duplex scan did not show any DVT. Treat per primary team 2. Elevated BNP level: Chest x-ray did not show any evidence of congestive heart failure. Dyspnea on exertion could be secondary to COPD. 2-D echo showed normal LV systolic function. 3. Hypertension: Better controlled since admission Plan Plan of Care Problems Medical Problems: (1) Short of breath on exertion Status: Acute Comment Review of Relevant I have reviewed the following items get (where applicable) has been applied. Labs Laboratory Tests Test 06/20/19 03:35 White Blood Count 6.8 x10^3/uL (4.0-11.0) Red Blood Count 2.64 x10^6/uL (4.30-5.70) Hemoglobin 9.2 g/dL (13.0-17.5) Hematocrit 26.8 % (39.0-53.0) Mean Corpuscular Volume 102 fL (79-100) Mean Corpuscular Hemoglobin 35 pg (25-35) Mean Corpuscular Hemoglobin Concent 34 g/dL (31-37) Red Cell Distribution Width 16.0 % (11.5-14.5) Platelet Count 156 x10^3/uL (140-400) Neutrophils (%) (Auto) 58 % (31-73) Lymphocytes (%) (Auto) 29 % (24-48) Monocytes (%) (Auto) 10 % (0-9) Eosinophils (%) (Auto) 2 % (0-3) Basophils (%) (Auto) 1 % (0-3) Neutrophils # (Auto) 3.9 x10^3/uL (1.8-7.7) Lymphocytes # (Auto) 2.0 x10^3/uL (1.0-4.8) Monocytes # (Auto) 0.7 x10^3/uL (0.0-1.1) Eosinophils # (Auto) 0.1 x10^3/uL (0.0-0.7) Basophils # (Auto) 0.1 x10^3/uL (0.0-0.2) Sodium Level 144 mmol/L (136-145) Potassium Level 4.5 mmol/L (3.5-5.1) Chloride Level 107 mmol/L (98-107) Carbon Dioxide Level 30 mmol/L (21-32) Anion Gap 7 (6-14) Blood Urea Nitrogen 28 mg/dL (8-26) Creatinine 1.5 mg/dL (0.7-1.3) Estimated GFR (Cockcroft-Gault) 44.3 BUN/Creatinine Ratio 19 (6-20) Glucose Level 104 mg/dL (70-99) Calcium Level 9.0 mg/dL (8.5-10.1) Total Bilirubin 0.4 mg/dL (0.2-1.0) Aspartate Amino Transf (AST/SGOT) 15 U/L (15-37) Alanine Aminotransferase (ALT/SGPT) 15 U/L (16-63) Alkaline Phosphatase 41 U/L (46-116) Total Protein 6.5 g/dL (6.4-8.2) Albumin 3.4 g/dL (3.4-5.0) Albumin/Globulin Ratio 1.1 (1.0-1.7) Vitals/I & O Vital Sign - Last 24 Hours 06/19/19 06/19/19 06/19/19 06/19/19 12:52 15:00 17:08 18:16 Temp 97.5 97.5 Pulse 58 Resp 20 B/P (MAP) 87/53 (64) Pulse Ox 97 94 94 94 O2 Delivery Room Air Room Air Room Air Room Air 06/19/19 06/19/19 06/19/19 06/19/19 19:49 20:00 21:03 23:30 Temp 98.3 98.2 98.3 98.2 Pulse 61 63 Resp 20 18 B/P (MAP) 122/69 (86) 122/69 102/57 (72) Pulse Ox 92 95 O2 Delivery Room Air Room Air Room Air 06/20/19 06/20/19 06/20/19 06/20/19 03:12 07:00 10:04 11:15 Temp 98.8 98.5 98.8 98.5 Pulse 59 60 Resp 18 16 B/P (MAP) 126/56 (79) 103/52 (69) Pulse Ox 92 95 95 95 O2 Delivery Room Air Room Air Room Air Room Air Intake and Output 06/19/19 06/19/19 06/20/19 15:00 23:00 07:00 Intake Total 0 ml 600 ml Balance 0 ml 600 ml NIKOLAS PHAN MD Jun 20, 2019 12:23
[2019-06-20] MEDS: oxyCODONE/APAP 10/325 1 TAB TABLET PO PRN (12:38)
--- NOTE | 2019-06-20 14:29 | CARD ---
MR#: [id number] Date of Study: 06/20/2019 Ordering Physician: FERMIN MONTANA, Referring Physician: FERMIN MONTANA Tech: Laurie Brewster [facility] APPROVED REPORT EXAM: Two-dimensional and M-mode echocardiogram with Doppler and color Doppler. Other Information Quality : AverageHR: 80bpm Rhythm : NSR INDICATION Dyspnea 2D DIMENSIONS RVDd3.4 (2.9-3.5cm)Left Atrium(2D)3.9 (1.6-4.0cm) IVSd1.7 (0.7-1.1cm)Aortic Root(2D)3.4 (2.0-3.7cm) LVDd4.3 (3.9-5.9cm)LVOT Diameter2.3 (1.8-2.4cm) PWd1.3 (0.7-1.1cm)LVDs3.0 (2.5-4.0cm) FS (%) 31.5 %SV50.5 ml LVEF(%)59.7 (>50%) M-Mode DIMENSIONS Left Atrium(MM)4.22 (2.5-4.0cm)Aortic Root3.65 (2.2-3.7cm) Aortic Valve AoV Peak Mohinder.141.6cm/sAoV VTI31.2cm AO Peak GR.8.0mmHgLVOT VTI 16.46cm AO Mean GR.5mmHgAVA (VTI)2.20cm2 Mitral Valve MV E Nacaoorq37.3cm/sMV DECEL [id number] MV A Xlgivsky90.4cm/sE/A Ratio1.4 MV A [id number] TDI Lateral E' P. V7.21cm/sMedial E' P. V7.34cm/s E/Lateral E'10.2E/Medial E'10.0 LEFT VENTRICLE The left ventricle is normal size. There is moderate concentric left ventricular hypertrophy. The lef t ventricular systolic function is normal. The Ejection Fraction is 60%. There is normal LV segmental wall motion. Transmitral Doppler flow pattern is Grade II-pseudonormal filling dynamics. RIGHT VENTRICLE The right ventricle is normal size. There is normal right ventricular wall thickness. The right ventr icular systolic function is normal. ATRIA The left atrium is mildly dilated. The right atrium is mildly dilated. The interatrial septum is inta ct with no evidence for an atrial septal defect or patent foramen ovale as noted on 2-D or Doppler im aging. AORTIC VALVE The aortic valve is mildly calcified. The aortic valve is trileaflet. Doppler and Color Flow revealed no significant aortic regurgitation. There is no significant aortic valvular stenosis. MITRAL VALVE Mitral annular calcification is mild. There is no evidence of mitral valve prolapse. There is no mitr al valve stenosis. Doppler and Color-flow revealed trace to mild mitral regurgitation. TRICUSPID VALVE The tricuspid valve is normal in structure and function. Doppler and Color Flow revealed no tricuspid valve regurgitation noted. There is no tricuspid valve prolapse or vegetation. There is no tricuspid valve stenosis. PULMONIC VALVE The pulmonic valve is not well visualized. GREAT VESSELS The aortic root is normal in size. The ascending aorta is normal in size. The IVC was not visualized. PERICARDIAL EFFUSION There is no evidence of significant pericardial effusion. Critical Notification Critical Value: No <Conclusion> The left ventricular systolic function is normal. The Ejection Fraction is 60%. There is normal LV segmental wall motion. Trace to mild mitral regurgitation. There is no evidence of significant pericardial effusion. Signed by : Farhad Fajardo, Electronically Approved : 06/20/2019 14:28:53
[2019-06-20 15:00] VITALS: BP 103/59
[2019-06-20 19:47] VITALS: BP 104/51
[2019-06-20] MEDS: LISINOPRIL 5 MG TABLET. PO SCH (21:25)
[2019-06-20 23:28] VITALS: BP 146/82
[2019-06-21] MEDS: oxyCODONE/APAP 10/325 1 TAB TABLET PO PRN ×4 (00:22→21:23)
[2019-06-21 03:58] VITALS: BP 111/64
[2019-06-21 06:09] LABS: BASO # 0.1 x10^3/uL (0.0-0.2); BASO % 1 % (0-3); EOS # 0.2 x10^3/uL (0.0-0.7); EOS % 3 % (0-3); HEMATOCRIT 28.5 % (39.0-53.0); HEMOGLOBIN 9.7 g/dL (13.0-17.5); LYMPH # 2.2 x10^3/uL (1.0-4.8); LYMPH % 31 % (24-48); MEAN CORPUSCULAR HEMOGLOBIN 34 pg (25-35); MEAN CORPUSCULAR HGB CONC 34 g/dL (31-37); MEAN CORPUSCULAR VOLUME 101 fL (79-100); MONO # 0.5 x10^3/uL (0.0-1.1); MONO % 7 % (0-9); NEUT # 4.1 x10^3/uL (1.8-7.7); NEUT % 58 % (31-73); PLATELET COUNT 162 x10^3/uL (140-400); RED BLOOD COUNT 2.82 x10^6/uL (4.30-5.70); RED CELL DISTRIBUTION WIDTH 15.5 % (11.5-14.5); WHITE BLOOD COUNT 7.1 x10^3/uL (4.0-11.0)
[2019-06-21 06:33] LABS: ALBUMIN 3.7 g/dL (3.4-5.0); ALBUMIN/GLOBULIN RATIO 1.1 (1.0-1.7); CREATININE 1.4 mg/dL (0.7-1.3); GFR 47.9; POTASSIUM 4.3 mmol/L (3.5-5.1); TOTAL BILIRUBIN 0.4 mg/dL (0.2-1.0)
[2019-06-21 07:00] VITALS: BP 132/71
[2019-06-21] MEDS ORDERED: HYDR-2761 PO (08:00)
[2019-06-21] MEDS ORDERED: MULT1TAB90 PO (08:00)
[2019-06-21] MEDS ORDERED: guaiFENesin/CODEINE 100mg/10mg PO (08:00)
[2019-06-21] MEDS ORDERED: ALBU2.5V8 NEB (08:00)
[2019-06-21] MEDS ORDERED: CYAN1TAB19 PO (08:00)
[2019-06-21] MEDS ORDERED: PRED-220 PO (08:00)
[2019-06-21] MEDS ORDERED: TIZA4TAB2 PO (08:00)
--- NOTE | 2019-06-21 08:01 | SNU/HH DC ---
DISCHARGE ORDERS DISCHARGE INFORMATION: DISCHARGE DATE: Jun 21, 2019 FINAL DIAGNOSIS Problems Medical Problems: (1) Short of breath on exertion Status: Acute CONDITION ON DISCHARGE: Stable CODE STATUS: Code Status: Full MCC: SNF STAY <30 DAYS: Yes HOSPICE: HOSPICE: No HOSPICE EVAL & TREAT: No LTAC: ADMIT TO LTAC: No POST DISCHARGE ORDERS: ACTIVITY ORDERS: Activity as tolerated, Avoid exertion WEIGHT BEARING STATUS: No restrictions BATHING ORDERS: Shower-keep dressing dry DIET AFTER DISCHARGE: Regular WOUND/INCISION CARE: Ice to area for comfort, Keep wound elevated, Do not change dressing CHECKS AFTER DISCHARGE: CHECKS AFTER DISCHARGE: Check blood press - daily FOLLOW-UP: PHYSICIAN FOLLOW-UP: pcp upon snu dc TREATMENT/EQUIPMENT ORDERS: ADAPTIVE EQUIPMENT NEEDED: None Physical Therapy For: Evalulation/Treatment Occupational Therapy For: Evaluation/Treatment DISCHARGE MEDICATIONS: Home Meds Active Scripts Multivits,Ca,Minerals/Iron/Fa (THERA-M TABLET) 1 Each Tablet, 1 TAB PO DAILY for mvi, #30 TAB Prov:FERMIN MONTANA MD 06/21/19 Cyanocobalamin/Fa/Pyridoxine (FOLBIC TABLET) 1 Each Tablet, 1 TAB PO DAILY for mvi, #30 TAB Prov:FERMIN MONTANA MD 06/21/19 Prednisone (PREDNISONE ) 10 Mg Tablet, 10 MG PO DAILY for sciatica for 4 Days, #4 TAB Prov:FERMIN MONTANA MD 06/21/19 [guaiFENesin/CODEINE 100mg/10mg] 5 ML LIQUID No Conflict Check, 5 ML PO PRN Q6HRS PRN for COUGH for 10 Days Prov:FERMIN MONTANA MD 06/21/19 Albuterol Sulfate (Proair Hfa) 8.5 Gm Hfa.aer.ad, 2.5 MG NEB PRN Q4HRS PRN for SHORTNESS OF BREATH for 30 Days, INHALER Prov:FERMIN MONTANA MD 06/21/19 Tizanidine Hcl (TIZANIDINE HCL) 4 Mg Tablet, 4 MG PO PRN Q8HRS PRN for MUSCLE SPASMS, #30 TAB Prov:FERMIN MONTANA MD 06/21/19 Hydrocodone Bit/Acetaminophen (HYDROCODONE-APAP 5-325 ) 1 Each Tablet, 1 TAB PO PRN Q4-6HRS PRN for PAIN, #20 TAB 0 Refills Prov:FERMIN MONTANA MD 06/21/19 Reported Medications Memantine Hcl (NAMENDA) 10 Mg Tablet, 1 TAB PO BID for Alzheimers, #180 TAB 1 Refill 06/18/19 Cholecalciferol (Vitamin D3) (VITAMIN D3) 1,000 Unit Tablet, 1 TAB PO DAILY for ukn, #30 TAB 5 Refills 06/18/19 Donepezil Hcl (DONEPEZIL HCL) 10 Mg Tablet, 1 TAB PO DAILY for ukn, #90 TAB 1 Refill 06/18/19 Quetiapine Fumarate (SEROQUEL) 25 Mg Tablet, 25 MG PO BID for depression, TAB 06/18/19 Sennosides (SENOKOT) 8.6 Mg Tablet, 1 TAB PO BID, #40 TAB 01/08/17 Aspirin (ASPIR 81) 81 Mg Tablet.dr, 81 MG PO DAILY08 07/29/13 Lisinopril (LISINOPRIL) 5 Mg Tablet, 5 MG PO HS 07/29/13 Discontinued Reported Medications Tamsulosin Hcl (FLOMAX) 0.4 Mg Cap.er.24h, 0.4 MG PO DAILY, TAB 01/08/17 FERMIN MONTANA MD Jun 21, 2019 08:01
--- NOTE | 2019-06-21 08:26 | EKG ---
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
--- NOTE | 2019-06-21 09:14 | PDOC ---
PROGRESS NOTES Subjective Subjective He admits continue dpain right hip area limiting his activity and pain medicine is helping. Objective Objective Vital Signs Date Time Temp Pulse Resp B/P (MAP) Pulse Ox O2 Delivery O2 Flow Rate FiO2 06/21/19 07:05 Room Air 06/21/19 07:00 98.0 65 20 132/71 (91) 98 98.0 Intake and Output 06/21/19 07:00 Intake Total 840 ml Balance 840 ml Intake Oral 840 ml # Voids 7 # Bowel Movements 1 Physical Exam Physical Exam He is alert,supine in bed and continues with tenderness to palpation over right sacroiliac joint and hip flexor muscle attachment to right anterior superior iliac spine area. No tenderness to palpation over hip adductor muscles and no reproduction of his pain on knee resistive extension. Assessment Assessment Problems Medical Problems: (1) Short of breath on exertion Status: Acute Plan Plan of Care Waiting for mri scan of lumar vertebrae to rule out new HNP or lumbar spinal stenosis. Comment Review of Relevant I have reviewed the following items get (where applicable) has been applied. Labs Laboratory Tests Test 06/20/19 03:35 06/21/19 05:36 06/21/19 05:38 White Blood Count 6.8 x10^3/uL (4.0-11.0) 7.1 x10^3/uL (4.0-11.0) Red Blood Count 2.64 x10^6/uL (4.30-5.70) 2.82 x10^6/uL (4.30-5.70) Hemoglobin 9.2 g/dL (13.0-17.5) 9.7 g/dL (13.0-17.5) Hematocrit 26.8 % (39.0-53.0) 28.5 % (39.0-53.0) Mean Corpuscular Volume 102 fL (79-100) 101 fL (79-100) Mean Corpuscular Hemoglobin 35 pg (25-35) 34 pg (25-35) Mean Corpuscular Hemoglobin Concent 34 g/dL (31-37) 34 g/dL (31-37) Red Cell Distribution Width 16.0 % (11.5-14.5) 15.5 % (11.5-14.5) Platelet Count 156 x10^3/uL (140-400) 162 x10^3/uL (140-400) Neutrophils (%) (Auto) 58 % (31-73) 58 % (31-73) Lymphocytes (%) (Auto) 29 % (24-48) 31 % (24-48) Monocytes (%) (Auto) 10 % (0-9) 7 % (0-9) Eosinophils (%) (Auto) 2 % (0-3) 3 % (0-3) Basophils (%) (Auto) 1 % (0-3) 1 % (0-3) Neutrophils # (Auto) 3.9 x10^3/uL (1.8-7.7) 4.1 x10^3/uL (1.8-7.7) Lymphocytes # (Auto) 2.0 x10^3/uL (1.0-4.8) 2.2 x10^3/uL (1.0-4.8) Monocytes # (Auto) 0.7 x10^3/uL (0.0-1.1) 0.5 x10^3/uL (0.0-1.1) Eosinophils # (Auto) 0.1 x10^3/uL (0.0-0.7) 0.2 x10^3/uL (0.0-0.7) Basophils # (Auto) 0.1 x10^3/uL (0.0-0.2) 0.1 x10^3/uL (0.0-0.2) Sodium Level 144 mmol/L (136-145) 143 mmol/L (136-145) Potassium Level 4.5 mmol/L (3.5-5.1) 4.3 mmol/L (3.5-5.1) Chloride Level 107 mmol/L (98-107) 106 mmol/L (98-107) Carbon Dioxide Level 30 mmol/L (21-32) 27 mmol/L (21-32) Anion Gap 7 (6-14) 10 (6-14) Blood Urea Nitrogen 28 mg/dL (8-26) 32 mg/dL (8-26) Creatinine 1.5 mg/dL (0.7-1.3) 1.4 mg/dL (0.7-1.3) Estimated GFR (Cockcroft-Gault) 44.3 47.9 BUN/Creatinine Ratio 19 (6-20) 23 (6-20) Glucose Level 104 mg/dL (70-99) 91 mg/dL (70-99) Calcium Level 9.0 mg/dL (8.5-10.1) 9.0 mg/dL (8.5-10.1) Total Bilirubin 0.4 mg/dL (0.2-1.0) 0.4 mg/dL (0.2-1.0) Aspartate Amino Transf (AST/SGOT) 15 U/L (15-37) 12 U/L (15-37) Alanine Aminotransferase (ALT/SGPT) 15 U/L (16-63) 15 U/L (16-63) Alkaline Phosphatase 41 U/L (46-116) 47 U/L (46-116) Total Protein 6.5 g/dL (6.4-8.2) 7.0 g/dL (6.4-8.2) Albumin 3.4 g/dL (3.4-5.0) 3.7 g/dL (3.4-5.0) Albumin/Globulin Ratio 1.1 (1.0-1.7) 1.1 (1.0-1.7) Laboratory Tests Test 06/21/19 05:36 06/21/19 05:38 White Blood Count 7.1 x10^3/uL (4.0-11.0) Red Blood Count 2.82 x10^6/uL (4.30-5.70) Hemoglobin 9.7 g/dL (13.0-17.5) Hematocrit 28.5 % (39.0-53.0) Mean Corpuscular Volume 101 fL (79-100) Mean Corpuscular Hemoglobin 34 pg (25-35) Mean Corpuscular Hemoglobin Concent 34 g/dL (31-37) Red Cell Distribution Width 15.5 % (11.5-14.5) Platelet Count 162 x10^3/uL (140-400) Neutrophils (%) (Auto) 58 % (31-73) Lymphocytes (%) (Auto) 31 % (24-48) Monocytes (%) (Auto) 7 % (0-9) Eosinophils (%) (Auto) 3 % (0-3) Basophils (%) (Auto) 1 % (0-3) Neutrophils # (Auto) 4.1 x10^3/uL (1.8-7.7) Lymphocytes # (Auto) 2.2 x10^3/uL (1.0-4.8) Monocytes # (Auto) 0.5 x10^3/uL (0.0-1.1) Eosinophils # (Auto) 0.2 x10^3/uL (0.0-0.7) Basophils # (Auto) 0.1 x10^3/uL (0.0-0.2) Sodium Level 143 mmol/L (136-145) Potassium Level 4.3 mmol/L (3.5-5.1) Chloride Level 106 mmol/L (98-107) Carbon Dioxide Level 27 mmol/L (21-32) Anion Gap 10 (6-14) Blood Urea Nitrogen 32 mg/dL (8-26) Creatinine 1.4 mg/dL (0.7-1.3) Estimated GFR (Cockcroft-Gault) 47.9 BUN/Creatinine Ratio 23 (6-20) Glucose Level 91 mg/dL (70-99) Calcium Level 9.0 mg/dL (8.5-10.1) Total Bilirubin 0.4 mg/dL (0.2-1.0) Aspartate Amino Transf (AST/SGOT) 12 U/L (15-37) Alanine Aminotransferase (ALT/SGPT) 15 U/L (16-63) Alkaline Phosphatase 47 U/L (46-116) Total Protein 7.0 g/dL (6.4-8.2) Albumin 3.7 g/dL (3.4-5.0) Albumin/Globulin Ratio 1.1 (1.0-1.7) Medications Current Medications Aspirin (Ecotrin) 81 mg DAILY08 PO Last administered on 06/20/19at 10:04; Start 06/19/19 at 08:00 Acetaminophen/ Hydrocodone Bitart (Lortab 5/325) 1 tab PRN QID PRN PO PAIN; Start 06/18/19 at 15:00; Stop 06/18/19 at 15:10; Status DC Lisinopril (Prinivil) 5 mg HS PO Last administered on 06/20/19at 21:25; Start 06/18/19 at 21:00 Sennosides (Senna) 8.6 mg BID PO Last administered on 06/20/19at 21:24; Start 06/18/19 at 21:00 Tamsulosin HCl (Flomax) 0.4 mg DAILY PO ; Start 06/19/19 at 09:00; Stop 06/18/19 at 20:00; Status DC Calcium Carbonate/ Glycine (Tums) 500 mg PRN AFTMEALHC PRN PO INDIGESTION; Start 06/18/19 at 15:00 Ondansetron HCl (Zofran) 4 mg PRN Q6HRS PRN IVP NAUSEA/VOMITING; Start 06/18/19 at 15:00 Temazepam (Restoril) 7.5 mg PRN QHS PRN PO INSOMNIA; Start 06/18/19 at 15:00 Clonidine HCl (Catapres) 0.1 mg PRN Q1HR PRN PO HYPERTENSION; Start 06/18/19 at 15:00 Albuterol Sulfate (Ventolin Neb Soln) 2.5 mg PRN Q4HRS PRN NEB SHORTNESS OF BREATH; Start 06/18/19 at 15:00 Guaifenesin/ Codeine Phosphate (Robitussin Ac) 5 ml PRN Q6HRS PRN PO COUGH; S tart 06/18/19 at 15:00 Acetaminophen/ Hydrocodone Bitart (Lortab 5/325) 1 tab PRN Q4HRS PRN PO PAIN Last administered on 06/19/19at 08:51; Start 06/18/19 at 15:00; Stop 06/19/19 at 10:33; Status DC Sodium Chloride 1,000 ml @ 75 mls/hr 1X ONCE IV Last administered on 06/18/19at 20:26; Start 06/18/19 at 15:00; Stop 06/19/19 at 04:19; Status DC Memantine (Namenda) 10 mg BID PO Last administered on 06/20/19at 21:25; Start 06/18/19 at 21:00 Donepezil HCl (Aricept) 5 mg DAILY PO Last administered on 06/20/19at 10:05; Start 06/19/19 at 09:00 Multivitamins (Thera M Plus) 1 tab DAILY PO Last administered on 06/20/19at 10:04; Start 06/19/19 at 09:00 Vitamin B Complex (Folbic Tablet) 1 tab DAILY PO Last administered on 06/20/19 10:05; Start 06/19/19 at 09:00 Quetiapine Fumarate (SEROquel) 25 mg BID PO Last administered on 06/20/19 21:24; Start 06/18/19 at 21:00 Vitamin D (Vitamin D3) 1,000 unit DAILY PO Last administered on 06/20/19 10:03; Start 06/19/19 at 09:00 Prednisone (Prednisone) 10 mg DAILY PO Last administered on 06/20/19at 10:04; Start 06/19/19 at 10:30 Pantoprazole Sodium (Protonix) 40 mg DAILYAC PO Last administered on 06/20/19 10:04; Start 06/19/19 at 10:30 Tizanidine HCl (Zanaflex) 4 mg PRN Q8HRS PRN PO MUSCLE SPASMS Last administered on 06/20/19 10:04; Start 06/19/19 at 10:30 Acetaminophen/ Hydrocodone Bitart (Lortab 10/325) 1 tab PRN Q6HRS PRN PO MODERATE PAIN Last administered on 06/20/19at 10:04; Start 06/19/19 at 10:30 Oxycodone/ Acetaminophen (Percocet 10/325) 1 tab PRN Q4HRS PRN PO SEVERE PAIN Last administered on 06/21/19 06:05; Start 06/20/19 at 12:30 Active Scripts Active Thera-M Tablet (Multivits,Ca,Minerals/Iron/Fa) 1 Each Tablet 1 Tab PO DAILY Folbic Tablet (Cyanocobalamin/Fa/Pyridoxine) 1 Each Tablet 1 Tab PO DAILY Prednisone (Prednisone) 10 Mg Tablet 10 Mg PO DAILY 4 Days [guaiFENesin/CODEINE 100mg/10mg] 5 ML Liquid 5 Ml PO PRN Q6HRS PRN 10 Days Proair Hfa (Albuterol Sulfate) 8.5 Gm Hfa.aer.ad 2.5 Mg NEB PRN Q4HRS PRN 30 Days Tizanidine Hcl 4 Mg Tablet 4 Mg PO PRN Q8HRS PRN Hydrocodone-Apap 5-325 (Hydrocodone Bit/Acetaminophen) 1 Each Tablet 1 Tab PO PRN Q4-6HRS PRN Reported Namenda (Memantine Hcl) 10 Mg Tablet 1 Tab PO BID Vitamin D3 (Cholecalciferol (Vitamin D3)) 1,000 Unit Tablet 1 Tab PO DAILY Donepezil Hcl 10 Mg Tablet 1 Tab PO DAILY Seroquel (Quetiapine Fumarate) 25 Mg Tablet 25 Mg PO BID Senokot (Sennosides) 8.6 Mg Tablet 1 Tab PO BID Aspir 81 (Aspirin) 81 Mg Tablet.dr 81 Mg PO DAILY08 Lisinopril 5 Mg Tablet 5 Mg PO HS Vitals/I & O Vital Sign - Last 24 Hours 06/20/19 06/20/19 06/20/19 06/20/19 10:04 11:00 11:15 12:38 Temp 97.3 97.3 Pulse 62 Resp 18 B/P (MAP) 95/42 (59) Pulse Ox 95 97 95 95 O2 Delivery Room Air Room Air Room Air Room Air 06/20/19 06/20/19 06/20/19 06/20/19 13:57 15:00 19:47 20:00 Temp 97.5 97.7 97.5 97.7 Pulse 63 55 Resp 12 18 B/P (MAP) 103/59 (74) 104/51 (68) Pulse Ox 95 94 96 O2 Delivery Room Air Room Air Room Air Room Air 06/20/19 06/20/19 06/21/19 06/21/19 21:25 23:28 00:22 01:22 Temp 97.5 97.5 Pulse 72 Resp 20 B/P (MAP) 104/55 146/82 (103) Pulse Ox 98 O2 Delivery Room Air Room Air Room Air 06/21/19 06/21/19 06/21/19 06/21/19 03:58 06:05 07:00 07:05 Temp 97.7 98.0 97.7 98.0 Pulse 58 65 Resp 16 20 B/P (MAP) 111/64 (80) 132/71 (91) Pulse Ox 94 98 O2 Delivery Room Air Room Air Room Air Room Air Intake and Output 06/20/19 06/20/19 06/21/19 15:00 23:00 07:00 Intake Total 480 ml 180 ml 180 ml Balance 480 ml 180 ml 180 ml JASPREET HO MD Jun 21, 2019 09:14
[2019-06-21] MEDS: VITAMIN B12,B9,B6 COMPLEX 1 TABLET. PO SCH (09:23)
[2019-06-21] MEDS: MULTIVITAMIN with MINERAL TABLET. PO SCH (09:23)
[2019-06-21] MEDS: predniSONE 10 MG TABLET PO SCH (09:23)
[2019-06-21] MEDS: DONEPEZIL HCL 5 MG TABLET. PO SCH (09:23)
[2019-06-21] MEDS: SENNOSIDES 8.6 MG TABLET PO SCH ×2 (09:23→21:23)
[2019-06-21] MEDS: PANTOPRAZOLE 40 MG TABLET.DR. PO SCH (09:23)
[2019-06-21] MEDS: QUEtiapine 25 MG TABLET. PO SCH ×2 (09:23→21:24)
[2019-06-21] MEDS: CHOLECALCIFEROL (VITAMIN D3) 1,000 UNIT TABLET PO SCH (09:23)
[2019-06-21] MEDS: ASPIRIN ENTERIC COATED 81 MG TABLET.DR. PO SCH (09:23)
[2019-06-21] MEDS: MEMANTINE 10 MG TABLET. PO SCH ×2 (09:23→21:24)
--- NOTE | 2019-06-21 09:53 | PDOC3 ---
Discharge Summary Visit Information Date of Admission: Jun 18, 2019 Date of Discharge: Jun 21, 2019 Admitting Diagnosis Comment: 1. sciatica, possible - s/.p short pred 2. Dementia - good iadls - on meds 3. HTN - 4. BPH - 5. HX left shoulder arthroplasty - as seen on CXR 6. SOA with no CHF 7. Gen weakness, SNU candidate 8 FULL CODE Final Diagnosis Problems Medical Problems: (1) Short of breath on exertion Status: Acute Brief Hospital Course Allergies Allergies Coded Allergies Type Severity Reaction Last Updated Verified Penicillins Allergy Intermediate Hives 01/06/17 Yes celecoxib Allergy Intermediate Swelling 01/06/17 Yes Vital Signs Vital Signs Date Time Temp Pulse Resp B/P (MAP) Pulse Ox O2 Delivery O2 Flow Rate FiO2 06/21/19 07:05 Room Air 06/21/19 07:00 98.0 65 20 132/71 (91) 98 98.0 Lab Results Laboratory Tests Test 06/20/19 03:35 06/21/19 05:36 06/21/19 05:38 White Blood Count 6.8 x10^3/uL (4.0-11.0) 7.1 x10^3/uL (4.0-11.0) Red Blood Count 2.64 x10^6/uL (4.30-5.70) 2.82 x10^6/uL (4.30-5.70) Hemoglobin 9.2 g/dL (13.0-17.5) 9.7 g/dL (13.0-17.5) Hematocrit 26.8 % (39.0-53.0) 28.5 % (39.0-53.0) Mean Corpuscular Volume 102 fL (79-100) 101 fL (79-100) Mean Corpuscular Hemoglobin 35 pg (25-35) 34 pg (25-35) Mean Corpuscular Hemoglobin Concent 34 g/dL (31-37) 34 g/dL (31-37) Red Cell Distribution Width 16.0 % (11.5-14.5) 15.5 % (11.5-14.5) Platelet Count 156 x10^3/uL (140-400) 162 x10^3/uL (140-400) Neutrophils (%) (Auto) 58 % (31-73) 58 % (31-73) Lymphocytes (%) (Auto) 29 % (24-48) 31 % (24-48) Monocytes (%) (Auto) 10 % (0-9) 7 % (0-9) Eosinophils (%) (Auto) 2 % (0-3) 3 % (0-3) Basophils (%) (Auto) 1 % (0-3) 1 % (0-3) Neutrophils # (Auto) 3.9 x10^3/uL (1.8-7.7) 4.1 x10^3/uL (1.8-7.7) Lymphocytes # (Auto) 2.0 x10^3/uL (1.0-4.8) 2.2 x10^3/uL (1.0-4.8) Monocytes # (Auto) 0.7 x10^3/uL (0.0-1.1) 0.5 x10^3/uL (0.0-1.1) Eosinophils # (Auto) 0.1 x10^3/uL (0.0-0.7) 0.2 x10^3/uL (0.0-0.7) Basophils # (Auto) 0.1 x10^3/uL (0.0-0.2) 0.1 x10^3/uL (0.0-0.2) Sodium Level 144 mmol/L (136-145) 143 mmol/L (136-145) Potassium Level 4.5 mmol/L (3.5-5.1) 4.3 mmol/L (3.5-5.1) Chloride Level 107 mmol/L (98-107) 106 mmol/L (98-107) Carbon Dioxide Level 30 mmol/L (21-32) 27 mmol/L (21-32) Anion Gap 7 (6-14) 10 (6-14) Blood Urea Nitrogen 28 mg/dL (8-26) 32 mg/dL (8-26) Creatinine 1.5 mg/dL (0.7-1.3) 1.4 mg/dL (0.7-1.3) Estimated GFR (Cockcroft-Gault) 44.3 47.9 BUN/Creatinine Ratio 19 (6-20) 23 (6-20) Glucose Level 104 mg/dL (70-99) 91 mg/dL (70-99) Calcium Level 9.0 mg/dL (8.5-10.1) 9.0 mg/dL (8.5-10.1) Total Bilirubin 0.4 mg/dL (0.2-1.0) 0.4 mg/dL (0.2-1.0) Aspartate Amino Transf (AST/SGOT) 15 U/L (15-37) 12 U/L (15-37) Alanine Aminotransferase (ALT/SGPT) 15 U/L (16-63) 15 U/L (16-63) Alkaline Phosphatase 41 U/L (46-116) 47 U/L (46-116) Total Protein 6.5 g/dL (6.4-8.2) 7.0 g/dL (6.4-8.2) Albumin 3.4 g/dL (3.4-5.0) 3.7 g/dL (3.4-5.0) Albumin/Globulin Ratio 1.1 (1.0-1.7) 1.1 (1.0-1.7) Laboratory Tests Test 06/21/19 05:36 06/21/19 05:38 White Blood Count 7.1 x10^3/uL (4.0-11.0) Red Blood Count 2.82 x10^6/uL (4.30-5.70) Hemoglobin 9.7 g/dL (13.0-17.5) Hematocrit 28.5 % (39.0-53.0) Mean Corpuscular Volume 101 fL (79-100) Mean Corpuscular Hemoglobin 34 pg (25-35) Mean Corpuscular Hemoglobin Concent 34 g/dL (31-37) Red Cell Distribution Width 15.5 % (11.5-14.5) Platelet Count 162 x10^3/uL (140-400) Neutrophils (%) (Auto) 58 % (31-73) Lymphocytes (%) (Auto) 31 % (24-48) Monocytes (%) (Auto) 7 % (0-9) Eosinophils (%) (Auto) 3 % (0-3) Basophils (%) (Auto) 1 % (0-3) Neutrophils # (Auto) 4.1 x10^3/uL (1.8-7.7) Lymphocytes # (Auto) 2.2 x10^3/uL (1.0-4.8) Monocytes # (Auto) 0.5 x10^3/uL (0.0-1.1) Eosinophils # (Auto) 0.2 x10^3/uL (0.0-0.7) Basophils # (Auto) 0.1 x10^3/uL (0.0-0.2) Sodium Level 143 mmol/L (136-145) Potassium Level 4.3 mmol/L (3.5-5.1) Chloride Level 106 mmol/L (98-107) Carbon Dioxide Level 27 mmol/L (21-32) Anion Gap 10 (6-14) Blood Urea Nitrogen 32 mg/dL (8-26) Creatinine 1.4 mg/dL (0.7-1.3) Estimated GFR (Cockcroft-Gault) 47.9 BUN/Creatinine Ratio 23 (6-20) Glucose Level 91 mg/dL (70-99) Calcium Level 9.0 mg/dL (8.5-10.1) Total Bilirubin 0.4 mg/dL (0.2-1.0) Aspartate Amino Transf (AST/SGOT) 12 U/L (15-37) Alanine Aminotransferase (ALT/SGPT) 15 U/L (16-63) Alkaline Phosphatase 47 U/L (46-116) Total Protein 7.0 g/dL (6.4-8.2) Albumin 3.7 g/dL (3.4-5.0) Albumin/Globulin Ratio 1.1 (1.0-1.7) Brief Hospital Course Mr. Quintero is a 89 old white male who lives alone at home but son who lives a block away checks up on him multiple times a day, comes in bec of almost "muscle attackes ant thigh". HE was treated similar to sciatica by physiatry, SOMe SOA and leg swelling, CXR normal co mananged with cards and no convincing dx for CHF, SNu candidate and agreeable, he mentions I think HCR, Will dw SW-\\ MEdically ready today SNU, Pt seen and examined COnsults: physiatry, cards Discharge Information Condition at Discharge: Improved, Stable Disposition/Orders: Other (snu) Scheduled Aspirin (Aspir 81) 81 Mg Tablet., 81 MG PO DAILY08, (Reported) Entered as Reported by: BELEM MARTINEZ on 07/29/131740 Last Action: Reviewed on 06/18/191835 by CURT THOMAS Cholecalciferol (Vitamin D3) (Vitamin D3) 1,000 Unit Tablet, 1 TAB PO DAILY for ukn, #30 Ref 5 (Reported) Entered as Reported by: CURT THOMAS on 06/18/191845 Last Taken: Unknown Dose on Unknown Date & Time Last Action: Reviewed on 06/18/191846 by CURT THOMAS Cyanocobalamin/Fa/Pyridoxine (Folbic Tablet) 1 Each Tablet, 1 TAB PO DAILY for mvi, #30 Prescribed by: FERMIN MONTANA on 06/21/19 0800 Donepezil Hcl (Donepezil Hcl) 10 Mg Tablet, 1 TAB PO DAILY for ukn, #90 Ref 1 (Reported) Entered as Reported by: CURT THOMAS on 06/18/191835 Last Taken: Unknown Dose on Unknown Date & Time Last Action: Reviewed on 06/18/191845 by CURT THOMAS Lisinopril (Lisinopril) 5 Mg Tablet, 5 MG PO HS, (Reported) Entered as Reported by: BELEM MARTINEZ on 07/29/131739 Last Action: Reviewed on 06/18/191835 by CURT THOMAS Memantine Hcl (Namenda) 10 Mg Tablet, 1 TAB PO BID for Alzheimers, #180 Ref 1 (Reported) Entered as Reported by: CURT THOMAS on 06/18/191845 Last Taken: Unknown Dose on Unknown Date & Time Last Action: Reviewed on 06/18/191846 by CURT THOMAS Multivits,Ca,Minerals/Iron/Fa (Thera-M Tablet) 1 Each Tablet, 1 TAB PO DAILY for mvi, #30 Prescribed by: FERMIN MONTANA on 06/21/19 0800 Prednisone (Prednisone ) 10 Mg Tablet, 10 MG PO DAILY for sciatica for 4 Days, #4 Prescribed by: FERMIN MONTANA on 06/21/19 0800 Quetiapine Fumarate (Seroquel) 25 Mg Tablet, 25 MG PO BID for depression, (Reported) Entered as Reported by: CURT THOMAS on 06/18/191835 Last Taken: Unknown Dose on Unknown Date & Time Last Action: Reviewed on 06/18/191845 by CURT THOMAS Sennosides (Senokot) 8.6 Mg Tablet, 1 TAB PO BID, #40 (Reported) Entered as Reported by: YADI PALACIOS on 01/08/171410 Last Action: Reviewed on 06/18/191835 by CURT THOMAS Scheduled PRN Albuterol Sulfate (Proair Hfa) 8.5 Gm Hfa.aer.ad, 2.5 MG NEB PRN Q4HRS PRN for SHORTNESS OF BREATH for 30 Days Prescribed by: FERMIN MONTANA on 06/21/19 0800 Hydrocodone Bit/Acetaminophen (Hydrocodone-Apap 5-325 ) 1 Each Tablet, 1 TAB PO PRN Q4-6HRS PRN for PAIN, #20 Ref 0 Prescribed by: FERMIN MONTANA on 06/21/19 0800 Tizanidine Hcl (Tizanidine Hcl) 4 Mg Tablet, 4 MG PO PRN Q8HRS PRN for MUSCLE SPASMS, #30 Prescribed by: FERMIN MONTANA on 06/21/19 0800 [guaiFENesin/CODEINE 100mg/10mg] 5 ML LIQUID, 5 ML PO PRN Q6HRS PRN for COUGH for 10 Days Prescribed by: FERMIN MONTANA on 06/21/19 0800 Discontinued Medications Tamsulosin Hcl (Flomax) 0.4 Mg Cap.er.24h, 0.4 MG PO DAILY, (Reported) Entered as Reported by: YADI PALACIOS on 01/08/171410 Last Action: Discontinued on 06/18/191835 by FERMIN COLBY MD Jun 21, 2019 09:53
--- NOTE | 2019-06-21 10:32 | NUR ---
SS following for discharge planning. SS reviewed pt chart. Pt is from home and is currently on room air. PT/OT recommended alf unit. Discharge orders on the chart for alf unit. Pt requesting that SS contact his son, Jose, to discuss discharge planning and alf unit. SS contacted pt's son and was notified to phone and fax referral to [facility], ; fax [phone], due to proximity to family. SS phoned and faxed referral. SS will await acceptance decision and insurance determination and will proceed accordingly with discharge planning.
[2019-06-21 11:00] VITALS: BP 130/61
--- NOTE | 2019-06-21 13:01 | PDOC ---
CARDIO Progress Notes Date and Time Date of Service 06/21/19 Time of Evaluation 1240 Subjective Subjective: No Chest Pain, No shortness of breath Vitals Vitals Vital Signs Date Time Temp Pulse Resp B/P (MAP) Pulse Ox O2 Delivery O2 Flow Rate FiO2 06/21/19 11:00 97.4 66 18 130/61 (84) 95 Room Air 97.4 Weight Weight [ ] Input and Output Intake and Output Intake and Output 06/21/19 07:00 Intake Total 840 ml Balance 840 ml Intake Oral 840 ml # Voids 7 # Bowel Movements 1 Laboratory Labs Laboratory Tests Test 06/21/19 05:36 06/21/19 05:38 White Blood Count 7.1 x10^3/uL (4.0-11.0) Red Blood Count 2.82 x10^6/uL (4.30-5.70) Hemoglobin 9.7 g/dL (13.0-17.5) Hematocrit 28.5 % (39.0-53.0) Mean Corpuscular Volume 101 fL (79-100) Mean Corpuscular Hemoglobin 34 pg (25-35) Mean Corpuscular Hemoglobin Concent 34 g/dL (31-37) Red Cell Distribution Width 15.5 % (11.5-14.5) Platelet Count 162 x10^3/uL (140-400) Neutrophils (%) (Auto) 58 % (31-73) Lymphocytes (%) (Auto) 31 % (24-48) Monocytes (%) (Auto) 7 % (0-9) Eosinophils (%) (Auto) 3 % (0-3) Basophils (%) (Auto) 1 % (0-3) Neutrophils # (Auto) 4.1 x10^3/uL (1.8-7.7) Lymphocytes # (Auto) 2.2 x10^3/uL (1.0-4.8) Monocytes # (Auto) 0.5 x10^3/uL (0.0-1.1) Eosinophils # (Auto) 0.2 x10^3/uL (0.0-0.7) Basophils # (Auto) 0.1 x10^3/uL (0.0-0.2) Sodium Level 143 mmol/L (136-145) Potassium Level 4.3 mmol/L (3.5-5.1) Chloride Level 106 mmol/L (98-107) Carbon Dioxide Level 27 mmol/L (21-32) Anion Gap 10 (6-14) Blood Urea Nitrogen 32 mg/dL (8-26) Creatinine 1.4 mg/dL (0.7-1.3) Estimated GFR (Cockcroft-Gault) 47.9 BUN/Creatinine Ratio 23 (6-20) Glucose Level 91 mg/dL (70-99) Calcium Level 9.0 mg/dL (8.5-10.1) Total Bilirubin 0.4 mg/dL (0.2-1.0) Aspartate Amino Transf (AST/SGOT) 12 U/L (15-37) Alanine Aminotransferase (ALT/SGPT) 15 U/L (16-63) Alkaline Phosphatase 47 U/L (46-116) Total Protein 7.0 g/dL (6.4-8.2) Albumin 3.7 g/dL (3.4-5.0) Albumin/Globulin Ratio 1.1 (1.0-1.7) Physical Exam HEENT: Neck Supple W Full Motion Chest: Symmetric Heart: S1S2, RRR Abdomen: Soft N/T Extremities: No Edema Neurology: alert, follow commands Assessment Assessment 1. Right leg pain, myalgia, sciatica: Lower extremity venous duplex scan did not show any DVT. Continue as per PCP 2. MORTON; NT Pro BNP elevated, but insignificant base upon adjustment. CXR without evidence of CHF. Most probably secondary to COPD. Echo showed normal LV systolic function 3. Hypertension: well-controlled 4. CKD 5. Dementia PERRI QUIROZ APRN Jun 21, 2019 13:01
--- NOTE | 2019-06-21 13:45 | NUR ---
SS following up with discharge planning. SS received phone contact from Tarik at [facility] stating that they have submitted for insurance authorization and are waiting determination from insurance. Tarik reported that he would come for a bed side evaluation with pt this afternoon. Pt's RN notified.
[2019-06-21 15:00] VITALS: BP 121/68
--- NOTE | 2019-06-21 16:02 | RAD ---
HIP BILATERAL WITH PELVIS History: Right hip pain. Bilateral total hip arthroplasties. Technique: AP view of the pelvis and 2 additional views of the hips bilaterally. Comparison: October 04, 2013. Findings: Bilateral total hip arthroplasties. Normal alignment. No fracture. Lower lumbar spondylosis. No perihardware lucency. 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 Impression: 1. Bilateral total hip arthroplasties. No hardware complications. 2. Lower lumbar spondylosis. Electronically signed by: Vinod Alicia DO (06/21/2019 3:59 PM) [facility]
[2019-06-21 19:46] VITALS: BP 137/64
[2019-06-21] MEDS: LISINOPRIL 5 MG TABLET. PO SCH (21:24)
[2019-06-21] MEDS: IRON POLYSACCHARIDE COMPLEX 150 MG CAPSULE PO SCH (21:24)
[2019-06-21 23:35] VITALS: BP 136/67
[2019-06-22 03:15] VITALS: BP 170/94
[2019-06-22] MEDS: oxyCODONE/APAP 10/325 1 TAB TABLET PO PRN ×4 (04:53→18:02)
[2019-06-22 06:33] LABS: BASO # 0.1 x10^3/uL (0.0-0.2); BASO % 1 % (0-3); EOS # 0.2 x10^3/uL (0.0-0.7); EOS % 3 % (0-3); HEMATOCRIT 30.4 % (39.0-53.0); HEMOGLOBIN 10.4 g/dL (13.0-17.5); LYMPH # 2.2 x10^3/uL (1.0-4.8); LYMPH % 32 % (24-48); MEAN CORPUSCULAR HEMOGLOBIN 35 pg (25-35); MEAN CORPUSCULAR HGB CONC 34 g/dL (31-37); MEAN CORPUSCULAR VOLUME 101 fL (79-100); MONO # 0.6 x10^3/uL (0.0-1.1); MONO % 9 % (0-9); NEUT # 3.8 x10^3/uL (1.8-7.7); NEUT % 55 % (31-73); PLATELET COUNT 183 x10^3/uL (140-400); RED BLOOD COUNT 2.99 x10^6/uL (4.30-5.70); RED CELL DISTRIBUTION WIDTH 15.7 % (11.5-14.5); WHITE BLOOD COUNT 6.9 x10^3/uL (4.0-11.0)
[2019-06-22 06:56] LABS: ALBUMIN 4.2 g/dL (3.4-5.0); ALBUMIN/GLOBULIN RATIO 1.2 (1.0-1.7); CALCIUM 9.3 mg/dL (8.5-10.1); CREATININE 1.5 mg/dL (0.7-1.3); GFR 44.3; POTASSIUM 4.3 mmol/L (3.5-5.1); TOTAL BILIRUBIN 0.5 mg/dL (0.2-1.0); TOTAL PROTEIN 7.8 g/dL (6.4-8.2)
[2019-06-22 07:15] VITALS: BP 154/83
[2019-06-22] MEDS ORDERED: LISI10TA2 PO (08:16)
[2019-06-22] MEDS: MULTIVITAMIN with MINERAL TABLET. PO SCH (08:34)
[2019-06-22] MEDS: QUEtiapine 25 MG TABLET. PO SCH ×2 (08:34→20:38)
[2019-06-22] MEDS: PANTOPRAZOLE 40 MG TABLET.DR. PO SCH (08:35)
[2019-06-22] MEDS: CHOLECALCIFEROL (VITAMIN D3) 1,000 UNIT TABLET PO SCH (08:35)
[2019-06-22] MEDS: MEMANTINE 10 MG TABLET. PO SCH ×2 (08:35→20:34)
[2019-06-22] MEDS: predniSONE 10 MG TABLET PO SCH (08:35)
[2019-06-22] MEDS: ASPIRIN ENTERIC COATED 81 MG TABLET.DR. PO SCH (08:35)
[2019-06-22] MEDS: IRON POLYSACCHARIDE COMPLEX 150 MG CAPSULE PO SCH ×2 (08:35→20:34)
[2019-06-22] MEDS: SENNOSIDES 8.6 MG TABLET PO SCH ×2 (08:35→20:34)
[2019-06-22] MEDS: DONEPEZIL HCL 5 MG TABLET. PO SCH (08:35)
[2019-06-22] MEDS: VITAMIN B12,B9,B6 COMPLEX 1 TABLET. PO SCH (08:35)
--- NOTE | 2019-06-22 10:03 | PDOC ---
PROGRESS NOTES Subjective Subjective He still admits periodic right hip area pain. Objective Objective Vital Signs Date Time Temp Pulse Resp B/P (MAP) Pulse Ox O2 Delivery O2 Flow Rate FiO2 06/22/19 08:35 18 Room Air 06/22/19 07:15 97.3 63 154/83 (106) 95 97.3 Intake and Output 06/22/19 07:00 Intake Total 1878 ml Balance 1878 ml Intake Oral 1878 ml # Voids 10 # Bowel Movements 1 Physical Exam Physical Exam H eis alert,supine in bed and he continues with tenderness to palpation over right sacroiliac joint and right anterior superior iliac spine area and painfully limited lumbar spine ROM. He had pain free hip joint ROM. X-ray of hips failed to reveal any loosening of prosthetic components but revealed heterotopic ossification around right greater trochanteric region. He is getting up with roller walker. Assessment Assessment Problems Medical Problems: (1) Short of breath on exertion Status: Acute Plan Plan of Care Waiting for mri scan of lumbar vertebrae to rule out lumbar spinal stenosis and to SNF of home with home health when medically stable. Comment Review of Relevant I have reviewed the following items get (where applicable) has been applied. Labs Laboratory Tests Test 06/21/19 05:36 06/21/19 05:38 06/22/19 06:00 White Blood Count 7.1 x10^3/uL (4.0-11.0) 6.9 x10^3/uL (4.0-11.0) Red Blood Count 2.82 x10^6/uL (4.30-5.70) 2.99 x10^6/uL (4.30-5.70) Hemoglobin 9.7 g/dL (13.0-17.5) 10.4 g/dL (13.0-17.5) Hematocrit 28.5 % (39.0-53.0) 30.4 % (39.0-53.0) Mean Corpuscular Volume 101 fL (79-100) 101 fL (79-100) Mean Corpuscular Hemoglobin 34 pg (25-35) 35 pg (25-35) Mean Corpuscular Hemoglobin Concent 34 g/dL (31-37) 34 g/dL (31-37) Red Cell Distribution Width 15.5 % (11.5-14.5) 15.7 % (11.5-14.5) Platelet Count 162 x10^3/uL (140-400) 183 x10^3/uL (140-400) Neutrophils (%) (Auto) 58 % (31-73) 55 % (31-73) Lymphocytes (%) (Auto) 31 % (24-48) 32 % (24-48) Monocytes (%) (Auto) 7 % (0-9) 9 % (0-9) Eosinophils (%) (Auto) 3 % (0-3) 3 % (0-3) Basophils (%) (Auto) 1 % (0-3) 1 % (0-3) Neutrophils # (Auto) 4.1 x10^3/uL (1.8-7.7) 3.8 x10^3/uL (1.8-7.7) Lymphocytes # (Auto) 2.2 x10^3/uL (1.0-4.8) 2.2 x10^3/uL (1.0-4.8) Monocytes # (Auto) 0.5 x10^3/uL (0.0-1.1) 0.6 x10^3/uL (0.0-1.1) Eosinophils # (Auto) 0.2 x10^3/uL (0.0-0.7) 0.2 x10^3/uL (0.0-0.7) Basophils # (Auto) 0.1 x10^3/uL (0.0-0.2) 0.1 x10^3/uL (0.0-0.2) Sodium Level 143 mmol/L (136-145) 143 mmol/L (136-145) Potassium Level 4.3 mmol/L (3.5-5.1) 4.3 mmol/L (3.5-5.1) Chloride Level 106 mmol/L (98-107) 105 mmol/L (98-107) Carbon Dioxide Level 27 mmol/L (21-32) 27 mmol/L (21-32) Anion Gap 10 (6-14) 11 (6-14) Blood Urea Nitrogen 32 mg/dL (8-26) 35 mg/dL (8-26) Creatinine 1.4 mg/dL (0.7-1.3) 1.5 mg/dL (0.7-1.3) Estimated GFR (Cockcroft-Gault) 47.9 44.3 BUN/Creatinine Ratio 23 (6-20) 23 (6-20) Glucose Level 91 mg/dL (70-99) 78 mg/dL (70-99) Calcium Level 9.0 mg/dL (8.5-10.1) 9.3 mg/dL (8.5-10.1) Total Bilirubin 0.4 mg/dL (0.2-1.0) 0.5 mg/dL (0.2-1.0) Aspartate Amino Transf (AST/SGOT) 12 U/L (15-37) 14 U/L (15-37) Alanine Aminotransferase (ALT/SGPT) 15 U/L (16-63) 16 U/L (16-63) Alkaline Phosphatase 47 U/L (46-116) 50 U/L (46-116) Total Protein 7.0 g/dL (6.4-8.2) 7.8 g/dL (6.4-8.2) Albumin 3.7 g/dL (3.4-5.0) 4.2 g/dL (3.4-5.0) Albumin/Globulin Ratio 1.1 (1.0-1.7) 1.2 (1.0-1.7) Laboratory Tests Test 06/22/19 06:00 White Blood Count 6.9 x10^3/uL (4.0-11.0) Red Blood Count 2.99 x10^6/uL (4.30-5.70) Hemoglobin 10.4 g/dL (13.0-17.5) Hematocrit 30.4 % (39.0-53.0) Mean Corpuscular Volume 101 fL (79-100) Mean Corpuscular Hemoglobin 35 pg (25-35) Mean Corpuscular Hemoglobin Concent 34 g/dL (31-37) Red Cell Distribution Width 15.7 % (11.5-14.5) Platelet Count 183 x10^3/uL (140-400) Neutrophils (%) (Auto) 55 % (31-73) Lymphocytes (%) (Auto) 32 % (24-48) Monocytes (%) (Auto) 9 % (0-9) Eosinophils (%) (Auto) 3 % (0-3) Basophils (%) (Auto) 1 % (0-3) Neutrophils # (Auto) 3.8 x10^3/uL (1.8-7.7) Lymphocytes # (Auto) 2.2 x10^3/uL (1.0-4.8) Monocytes # (Auto) 0.6 x10^3/uL (0.0-1.1) Eosinophils # (Auto) 0.2 x10^3/uL (0.0-0.7) Basophils # (Auto) 0.1 x10^3/uL (0.0-0.2) Sodium Level 143 mmol/L (136-145) Potassium Level 4.3 mmol/L (3.5-5.1) Chloride Level 105 mmol/L (98-107) Carbon Dioxide Level 27 mmol/L (21-32) Anion Gap 11 (6-14) Blood Urea Nitrogen 35 mg/dL (8-26) Creatinine 1.5 mg/dL (0.7-1.3) Estimated GFR (Cockcroft-Gault) 44.3 BUN/Creatinine Ratio 23 (6-20) Glucose Level 78 mg/dL (70-99) Calcium Level 9.3 mg/dL (8.5-10.1) Total Bilirubin 0.5 mg/dL (0.2-1.0) Aspartate Amino Transf (AST/SGOT) 14 U/L (15-37) Alanine Aminotransferase (ALT/SGPT) 16 U/L (16-63) Alkaline Phosphatase 50 U/L (46-116) Total Protein 7.8 g/dL (6.4-8.2) Albumin 4.2 g/dL (3.4-5.0) Albumin/Globulin Ratio 1.2 (1.0-1.7) Medications Current Medications Aspirin (Ecotrin) 81 mg DAILY08 PO Last administered on 06/22/19at 08:35; Start 06/19/19 at 08:00 Acetaminophen/ Hydrocodone Bitart (Lortab 5/325) 1 tab PRN QID PRN PO PAIN; Start 06/18/19 at 15:00; Stop 06/18/19 at 15:10; Status DC Lisinopril (Prinivil) 5 mg HS PO Last administered on 06/21/19at 21:24; Start 06/18/19 at 21:00; Stop 06/22/19 at 08:16; Status DC Sennosides (Senna) 8.6 mg BID PO Last administered on 06/22/19at 08:35; Start 06/18/19 at 21:00 Tamsulosin HCl (Flomax) 0.4 mg DAILY PO ; Start 06/19/19 at 09:00; Stop 06/18/19 at 20:00; Status DC Calcium Carbonate/ Glycine (Tums) 500 mg PRN AFTMEALHC PRN PO INDIGESTION; Start 06/18/19 at 15:00 Ondansetron HCl (Zofran) 4 mg PRN Q6HRS PRN IVP NAUSEA/VOMITING; Start 06/18/19 at 15:00 Temazepam (Restoril) 7.5 mg PRN QHS PRN PO INSOMNIA; Start 06/18/19 at 15:00 Clonidine HCl (Catapres) 0.1 mg PRN Q1HR PRN PO HYPERTENSION; Start 06/18/19 at 15:00 Albuterol Sulfate (Ventolin Neb Soln) 2.5 mg PRN Q4HRS PRN NEB SHORTNESS OF BREATH Last administered on 06/21/19at 15:50; Start 06/18/19 at 15:00 Guaifenesin/ Codeine Phosphate (Robitussin Ac) 5 ml PRN Q6HRS PRN PO COUGH; Start 06/18/19 at 15:00 Acetaminophen/ Hydrocodone Bitart (Lortab 5/325) 1 tab PRN Q4HRS PRN PO PAIN Last administered on 06/19/19at 08:51; Start 06/18/19 at 15:00; Stop 06/19/19 at 10:33; Status DC Sodium Chloride 1,000 ml @ 75 mls/hr 1X ONCE IV Last administered on 06/18/19at 20:26; Start 06/18/19 at 15:00; Stop 06/19/19 at 04:19; Status DC Memantine (Namenda) 10 mg BID PO Last administered on 06/22/19at 08:35; Start 06/18/19 at 21:00 Donepezil HCl (Aricept) 5 mg DAILY PO Last administered on 06/22/19at 08:35; Start 06/19/19 at 09:00 Multivitamins (Thera M Plus) 1 tab DAILY PO Last administered on 06/22/19 08:34; Start 06/19/19 at 09:00 Vitamin B Complex (Folbic Tablet) 1 tab DAILY PO Last administered on 06/22/19 08:35; Start 06/19/19 at 09:00 Quetiapine Fumarate (SEROquel) 25 mg BID PO Last administered on 06/22/19 08:34; Start 06/18/19 at 21:00 Vitamin D (Vitamin D3) 1,000 unit DAILY PO Last administered on 06/22/19 08:35; Start 06/19/19 at 09:00 Prednisone (Prednisone) 10 mg DAILY PO Last administered on 06/22/19 08:35; Start 06/19/19 at 10:30 Pantoprazole Sodium (Protonix) 40 mg DAILYAC PO Last administered on 06/22/19 08:35; Start 06/19/19 at 10:30 Tizanidine HCl (Zanaflex) 4 mg PRN Q8HRS PRN PO MUSCLE SPASMS Last administered on 06/20/19 10:04; Start 06/19/19 at 10:30 Acetaminophen/ Hydrocodone Bitart (Lortab 10/325) 1 tab PRN Q6HRS PRN PO MODE RATE PAIN Last administered on 06/20/19 10:04; Start 06/19/19 at 10:30 Oxycodone/ Acetaminophen (Percocet 10/325) 1 tab PRN Q4HRS PRN PO SEVERE PAIN Last administered on 06/22/19 08:35; Start 06/20/19 at 12:30 Polysaccharide Iron Complex (Niferex 150) 150 mg BID PO Last administered on 06/22/19 08:35; Start 06/21/19 at 21:00 Lisinopril (Prinivil) 10 mg QHS PO ; Start 06/22/19 at 21:00 Active Scripts Active Lisinopril 10 Mg Tablet 1 Tab PO DAILY Thera-M Tablet (Multivits,Ca,Minerals/Iron/Fa) 1 Each Tablet 1 Tab PO DAILY Folbic Tablet (Cyanocobalamin/Fa/Pyridoxine) 1 Each Tablet 1 Tab PO DAILY Prednisone (Prednisone) 10 Mg Tablet 10 Mg PO DAILY 4 Days [guaiFENesin/CODEINE 100mg/10mg] 5 ML Liquid 5 Ml PO PRN Q6HRS PRN 10 Days Proair Hfa (Albuterol Sulfate) 8.5 Gm Hfa.aer.ad 2.5 Mg NEB PRN Q4HRS PRN 30 Days Tizanidine Hcl 4 Mg Tablet 4 Mg PO PRN Q8HRS PRN Hydrocodone-Apap 5-325 (Hydrocodone Bit/Acetaminophen) 1 Each Tablet 1 Tab PO PRN Q4-6HRS PRN Reported Namenda (Memantine Hcl) 10 Mg Tablet 1 Tab PO BID Vitamin D3 (Cholecalciferol (Vitamin D3)) 1,000 Unit Tablet 1 Tab PO DAILY Donepezil Hcl 10 Mg Tablet 1 Tab PO DAILY Seroquel (Quetiapine Fumarate) 25 Mg Tablet 25 Mg PO BID Senokot (Sennosides) 8.6 Mg Tablet 1 Tab PO BID Aspir 81 (Aspirin) 81 Mg Tablet.dr 81 Mg PO DAILY08 Lisinopril 5 Mg Tablet 5 Mg PO HS Vitals/I & O Vital Sign - Last 24 Hours 06/21/19 06/21/19 06/21/19 06/21/19 11:00 14:48 15:00 15:48 Temp 97.4 97.6 97.4 97.6 Pulse 66 72 Resp 18 17 18 18 B/P (MAP) 130/61 (84) 121/68 (85) Pulse Ox 95 94 O2 Delivery Room Air Room Air Room Air Room Air 06/21/19 06/21/19 06/21/19 06/21/19 15:50 19:46 20:00 21:23 Temp 97.9 97.9 Pulse 67 Resp 16 B/P (MAP) 137/64 (88) Pulse Ox 98 95 95 O2 Delivery Room Air Room Air Room Air Room Air 06/21/19 06/21/19 06/21/19 06/22/19 21:24 22:23 23:35 03:15 Temp 98.0 98.2 98.0 98.2 Pulse 67 68 73 Resp 16 16 B/P (MAP) 137/64 136/67 (90) 170/94 (119) Pulse Ox 95 94 97 O2 Delivery Room Air Room Air Room Air 06/22/19 06/22/19 06/22/19 06/22/19 04:53 05:53 07:15 08:35 Temp 97.3 97.3 Pulse 63 Resp 18 20 18 B/P (MAP) 154/83 (106) Pulse Ox 97 97 95 O2 Delivery Room Air Room Air Room Air Room Air Intake and Output 06/21/19 06/21/19 06/22/19 15:00 23:00 07:00 Intake Total 1198 ml 180 ml 500 ml Balance 1198 ml 180 ml 500 ml JASPREET HO MD Jun 22, 2019 10:03
--- NOTE | 2019-06-22 10:14 | PDOC ---
Provider Note Provider Note dc did not happen yesterday bec of hip xray by physiatry and still waiting for insurance auth for SNU Pt has no major issues today,except for bilateral knee pain hip xray: Impression: 1. Bilateral total hip arthroplasties. No hardware complications. 2. Lower lumbar spondylosis. Pt seen and examined BP high, I ahd to inc his dose lisinopril and i updated MAR and rx on chart MEDICALLY READY SNU TODAY ONCE INSURANCE AUTHorizes Dc summ done yesterday, addenduM, inc lisinipril to 10 po qD FERMIN MONTANA MD Jun 22, 2019 10:14
--- NOTE | 2019-06-22 10:15 | SNU/HH DC ---
DISCHARGE ORDERS DISCHARGE INFORMATION: DISCHARGE DATE: Jun 22, 2019 FINAL DIAGNOSIS Problems Medical Problems: (1) Short of breath on exertion Status: Acute CONDITION ON DISCHARGE: Stable CODE STATUS: Code Status: Full HALF-WAY: SNF STAY <30 DAYS: Yes HOSPICE: HOSPICE: No HOSPICE EVAL & TREAT: No LTAC: ADMIT TO LTAC: No POST DISCHARGE ORDERS: ACTIVITY ORDERS: Activity as tolerated, Avoid exertion WEIGHT BEARING STATUS: No restrictions BATHING ORDERS: Shower-keep dressing dry DIET AFTER DISCHARGE: Cardiac WOUND/INCISION CARE: Ice to area for comfort, Keep wound elevated, Do not change dressing CHECKS AFTER DISCHARGE: CHECKS AFTER DISCHARGE: Check blood press - daily FOLLOW-UP: PHYSICIAN FOLLOW-UP: pcp upon snu dc TREATMENT/EQUIPMENT ORDERS: ADAPTIVE EQUIPMENT NEEDED: None Physical Therapy For: Evalulation/Treatment Occupational Therapy For: Evaluation/Treatment DISCHARGE MEDICATIONS: Home Meds Active Scripts Lisinopril (LISINOPRIL) 10 Mg Tablet, 1 TAB PO DAILY for htn, #30 TAB 5 Refills Prov:FERMIN MONTANA MD 06/22/19 Multivits,Ca,Minerals/Iron/Fa (THERA-M TABLET) 1 Each Tablet, 1 TAB PO DAILY for mvi, #30 TAB Prov:FERMIN MONTANA MD 06/21/19 Cyanocobalamin/Fa/Pyridoxine (FOLBIC TABLET) 1 Each Tablet, 1 TAB PO DAILY for mvi, #30 TAB Prov:FERMIN MONTANA MD 06/21/19 Prednisone (PREDNISONE ) 10 Mg Tablet, 10 MG PO DAILY for sciatica for 4 Days, #4 TAB Prov:FERMIN MONTANA MD 06/21/19 [guaiFENesin/CODEINE 100mg/10mg] 5 ML LIQUID No Conflict Check, 5 ML PO PRN Q6HRS PRN for COUGH for 10 Days Prov:FERMIN MONTANA MD 06/21/19 Albuterol Sulfate (Proair Hfa) 8.5 Gm Hfa.aer.ad, 2.5 MG NEB PRN Q4HRS PRN for SHORTNESS OF BREATH for 30 Days, INHALER Prov:FERMIN MONTANA MD 06/21/19 Tizanidine Hcl (TIZANIDINE HCL) 4 Mg Tablet, 4 MG PO PRN Q8HRS PRN for MUSCLE S PASMS, #30 TAB Prov:FERMIN MONTANA MD 06/21/19 Hydrocodone Bit/Acetaminophen (HYDROCODONE-APAP 5-325 ) 1 Each Tablet, 1 TAB PO PRN Q4-6HRS PRN for PAIN, #20 TAB 0 Refills Prov:FERMIN MONTANA MD 06/21/19 Reported Medications Memantine Hcl (NAMENDA) 10 Mg Tablet, 1 TAB PO BID for Alzheimers, #180 TAB 1 Refill 06/18/19 Cholecalciferol (Vitamin D3) (VITAMIN D3) 1,000 Unit Tablet, 1 TAB PO DAILY for ukn, #30 TAB 5 Refills 06/18/19 Donepezil Hcl (DONEPEZIL HCL) 10 Mg Tablet, 1 TAB PO DAILY for ukn, #90 TAB 1 Refill 06/18/19 Quetiapine Fumarate (SEROQUEL) 25 Mg Tablet, 25 MG PO BID for depression, TAB 06/18/19 Sennosides (SENOKOT) 8.6 Mg Tablet, 1 TAB PO BID, #40 TAB 01/08/17 Aspirin (ASPIR 81) 81 Mg Tablet.dr, 81 MG PO DAILY08 07/29/13 Lisinopril (LISINOPRIL) 5 Mg Tablet, 5 MG PO HS 07/29/13 Discontinued Reported Medications Tamsulosin Hcl (FLOMAX) 0.4 Mg Cap.er.24h, 0.4 MG PO DAILY, TAB 01/08/17 FERMIN MONTANA MD Jun 22, 2019 10:15
--- NOTE | 2019-06-22 10:50 | NUR ---
CHAR following pt. Spoke with Marline and auth is still pending. Marline also had visited pt yesterday. CHAR faxed updates to [facility] and left a VM to Leann at [facility] regarding auth. Will continue to follow.
[2019-06-22 11:00] VITALS: BP 127/62
--- NOTE | 2019-06-22 13:29 | NUR ---
SW following pt. Spoke with Leann and she expressed concern about pt's pain score of 10/10 while working with PT/OT which is limiting pt's participation in therapy. She also requested if pt is going to have MRI as noted by rehab Physician. Leann reported she is not able to process request until this is addressed. Discussed with RN and notified Dr. Armas regarding MRI. CHAR will continue to follow.
[2019-06-22 15:10] VITALS: BP 131/80
[2019-06-22 19:11] VITALS: BP 149/87
[2019-06-22] MEDS: LISINOPRIL 10 MG TABLET PO SCH (20:34)
[2019-06-22 23:34] VITALS: BP 139/59
[2019-06-23] MEDS: oxyCODONE/APAP 10/325 1 TAB TABLET PO PRN (00:37)
[2019-06-23 04:37] LABS: BASO # 0.1 x10^3/uL (0.0-0.2); BASO % 1 % (0-3); EOS # 0.2 x10^3/uL (0.0-0.7); EOS % 3 % (0-3); HEMATOCRIT 28.4 % (39.0-53.0); HEMOGLOBIN 9.7 g/dL (13.0-17.5); LYMPH # 2.2 x10^3/uL (1.0-4.8); LYMPH % 35 % (24-48); MEAN CORPUSCULAR HEMOGLOBIN 35 pg (25-35); MEAN CORPUSCULAR HGB CONC 34 g/dL (31-37); MEAN CORPUSCULAR VOLUME 102 fL (79-100); MONO # 0.7 x10^3/uL (0.0-1.1); MONO % 11 % (0-9); NEUT # 3.1 x10^3/uL (1.8-7.7); NEUT % 50 % (31-73); PLATELET COUNT 157 x10^3/uL (140-400); RED BLOOD COUNT 2.79 x10^6/uL (4.30-5.70); RED CELL DISTRIBUTION WIDTH 15.8 % (11.5-14.5); WHITE BLOOD COUNT 6.2 x10^3/uL (4.0-11.0)
[2019-06-23 05:01] LABS: ALBUMIN 3.7 g/dL (3.4-5.0); ALBUMIN/GLOBULIN RATIO 1.2 (1.0-1.7); CREATININE 1.7 mg/dL (0.7-1.3); GFR 38.3; POTASSIUM 4.1 mmol/L (3.5-5.1); TOTAL BILIRUBIN 0.5 mg/dL (0.2-1.0); TOTAL PROTEIN 6.9 g/dL (6.4-8.2)
[2019-06-23] MEDS: PANTOPRAZOLE 40 MG TABLET.DR. PO SCH (06:05)
[2019-06-23 07:00] VITALS: BP 144/79
[2019-06-23] MEDS: MEMANTINE 10 MG TABLET. PO SCH ×2 (08:39→21:05)
[2019-06-23] MEDS: IRON POLYSACCHARIDE COMPLEX 150 MG CAPSULE PO SCH ×2 (08:39→21:05)
[2019-06-23] MEDS: DONEPEZIL HCL 5 MG TABLET. PO SCH (08:39)
[2019-06-23] MEDS: CHOLECALCIFEROL (VITAMIN D3) 1,000 UNIT TABLET PO SCH (08:40)
[2019-06-23] MEDS: predniSONE 10 MG TABLET PO SCH (08:40)
[2019-06-23] MEDS: SENNOSIDES 8.6 MG TABLET PO SCH ×2 (08:40→21:06)
[2019-06-23] MEDS: QUEtiapine 25 MG TABLET. PO SCH ×2 (08:40→21:08)
[2019-06-23] MEDS: MULTIVITAMIN with MINERAL TABLET. PO SCH (08:40)
[2019-06-23] MEDS: ASPIRIN ENTERIC COATED 81 MG TABLET.DR. PO SCH (08:40)
[2019-06-23] MEDS: VITAMIN B12,B9,B6 COMPLEX 1 TABLET. PO SCH (08:40)
[2019-06-23] MEDS: HYDROcodone/APAP 10/325 1 TAB TABLET PO PRN (09:42)
--- NOTE | 2019-06-23 10:19 | PDOC ---
PROGRESS NOTES Chief Complaint Chief Complaint 0. CHF 1. Myalgia x mos, anterior thigh - add tsh, esr, cpk - MIGHT NEED MUSCLE BIOPSY BY GS 2. Recent tx for sciatica, possible - s/.p short pred Bilateral total hip arthroplasties. Normal alignment. No fracture. Lower lumbar spondylosis. No perihardware lucency. 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 Lower lumbar spondylosis. 3. Dementia - good iadls - on meds 4. HTN - higher than usual, cont lisinopril 5, add prn clonidine 5. BPH - prev on flomax- request morgan, i will re start flomax, WOF orthostasis 6. HX left shoulder arthroplasty - as seen on CXR 7. SOA with recent pitting edema, BNP 1900- check echo, no signif edema currently Anemia FULL CODE History of Present Illness History of Present Illness 06-23 MRI PELVIS PENDING MRI scan of lumbar vertebrae TRY 4 MG MORPHINE IM NOW BEFORE MRI 27 MIN PT EXAM, CHART REVIEW > 50% OF TIME SPENT WITH EXAM, CHART REVIEW, PT CARE COORDINATION 06/20/2019 Pt seen and examined. Pt sitting in chair and conversant, breathing comfortably on room air. Pt not oriented to date. Doppler of lower extremities was negative for DVT. [id number] Patient seen and examined Discussed with RN I'm the consult cardiology because his BNP level is high We are also going to check lower extremity Dopplers to rule out DVT Vitals Vitals Vital Signs Date Time Temp Pulse Resp B/P (MAP) Pulse Ox O2 Delivery O2 Flow Rate FiO2 06/23/19 09:42 18 Room Air 06/23/19 07:00 98.2 60 144/79 (100) 97 98.2 Physical Exam General: Alert, Cooperative, No acute distress Heart: Regular rate Lungs: Crackles Abdomen: Soft Extremities: Other (1+ pitting pedal edema) Skin: No rashes, No breakdown, No significant lesion Labs LABS HIP BILATERAL WITH PELVIS History: Right hip pain. Bilateral total hip arthroplasties. Technique: AP view of the pelvis and 2 additional views of the hips bilaterally. Comparison: October 04, 2013. Findings: Bilateral total hip arthroplasties. Normal alignment. No fracture. Lower lumbar spondylosis. No perihardware lucency. 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 Impression: 1. Bilateral total hip arthroplasties. No hardware complications. 2. Lower lumbar spondylosis. Electronically signed by: Aparna Zee DO (06/21/2019 3:59 PM) [facility] DICTATED and SIGNED BY: APARNA ZEE DO DATE: 06/21/19 1559 Laboratory Tests Test 06/23/19 04:00 White Blood Count 6.2 x10^3/uL (4.0-11.0) Red Blood Count 2.79 x10^6/uL (4.30-5.70) Hemoglobin 9.7 g/dL (13.0-17.5) Hematocrit 28.4 % (39.0-53.0) Mean Corpuscular Volume 102 fL (79-100) Mean Corpuscular Hemoglobin 35 pg (25-35) Mean Corpuscular Hemoglobin Concent 34 g/dL (31-37) Red Cell Distribution Width 15.8 % (11.5-14.5) Platelet Count 157 x10^3/uL (140-400) Neutrophils (%) (Auto) 50 % (31-73) Lymphocytes (%) (Auto) 35 % (24-48) Monocytes (%) (Auto) 11 % (0-9) Eosinophils (%) (Auto) 3 % (0-3) Basophils (%) (Auto) 1 % (0-3) Neutrophils # (Auto) 3.1 x10^3/uL (1.8-7.7) Lymphocytes # (Auto) 2.2 x10^3/uL (1.0-4.8) Monocytes # (Auto) 0.7 x10^3/uL (0.0-1.1) Eosinophils # (Auto) 0.2 x10^3/uL (0.0-0.7) Basophils # (Auto) 0.1 x10^3/uL (0.0-0.2) Sodium Level 143 mmol/L (136-145) Potassium Level 4.1 mmol/L (3.5-5.1) Chloride Level 105 mmol/L (98-107) Carbon Dioxide Level 29 mmol/L (21-32) Anion Gap 9 (6-14) Blood Urea Nitrogen 38 mg/dL (8-26) Creatinine 1.7 mg/dL (0.7-1.3) Estimated GFR (Cockcroft-Gault) 38.3 BUN/Creatinine Ratio 22 (6-20) Glucose Level 89 mg/dL (70-99) Calcium Level 9.0 mg/dL (8.5-10.1) Total Bilirubin 0.5 mg/dL (0.2-1.0) Aspartate Amino Transf (AST/SGOT) 14 U/L (15-37) Alanine Aminotransferase (ALT/SGPT) 13 U/L (16-63) Alkaline Phosphatase 45 U/L (46-116) Total Protein 6.9 g/dL (6.4-8.2) Albumin 3.7 g/dL (3.4-5.0) Albumin/Globulin Ratio 1.2 (1.0-1.7) Assessment and Plan Assessmemt and Plan Problems Medical Problems: (1) Short of breath on exertion Status: Acute Comment Review of Relevant I have reviewed the following items get (where applicable) has been applied. Labs Laboratory Tests Test 06/22/19 06:00 06/23/19 04:00 White Blood Count 6.9 x10^3/uL (4.0-11.0) 6.2 x10^3/uL (4.0-11.0) Red Blood Count 2.99 x10^6/uL (4.30-5.70) 2.79 x10^6/uL (4.30-5.70) Hemoglobin 10.4 g/dL (13.0-17.5) 9.7 g/dL (13.0-17.5) Hematocrit 30.4 % (39.0-53.0) 28.4 % (39.0-53.0) Mean Corpuscular Volume 101 fL (79-100) 102 fL (79-100) Mean Corpuscular Hemoglobin 35 pg (25-35) 35 pg (25-35) Mean Corpuscular Hemoglobin Concent 34 g/dL (31-37) 34 g/dL (31-37) Red Cell Distribution Width 15.7 % (11.5-14.5) 15.8 % (11.5-14.5) Platelet Count 183 x10^3/uL (140-400) 157 x10^3/uL (140-400) Neutrophils (%) (Auto) 55 % (31-73) 50 % (31-73) Lymphocytes (%) (Auto) 32 % (24-48) 35 % (24-48) Monocytes (%) (Auto) 9 % (0-9) 11 % (0-9) Eosinophils (%) (Auto) 3 % (0-3) 3 % (0-3) Basophils (%) (Auto) 1 % (0-3) 1 % (0-3) Neutrophils # (Auto) 3.8 x10^3/uL (1.8-7.7) 3.1 x10^3/uL (1.8-7.7) Lymphocytes # (Auto) 2.2 x10^3/uL (1.0-4.8) 2.2 x10^3/uL (1.0-4.8) Monocytes # (Auto) 0.6 x10^3/uL (0.0-1.1) 0.7 x10^3/uL (0.0-1.1) Eosinophils # (Auto) 0.2 x10^3/uL (0.0-0.7) 0.2 x10^3/uL (0.0-0.7) Basophils # (Auto) 0.1 x10^3/uL (0.0-0.2) 0.1 x10^3/uL (0.0-0.2) Sodium Level 143 mmol/L (136-145) 143 mmol/L (136-145) Potassium Level 4.3 mmol/L (3.5-5.1) 4.1 mmol/L (3.5-5.1) Chloride Level 105 mmol/L (98-107) 105 mmol/L (98-107) Carbon Dioxide Level 27 mmol/L (21-32) 29 mmol/L (21-32) Anion Gap 11 (6-14) 9 (6-14) Blood Urea Nitrogen 35 mg/dL (8-26) 38 mg/dL (8-26) Creatinine 1.5 mg/dL (0.7-1.3) 1.7 mg/dL (0.7-1.3) Estimated GFR (Cockcroft-Gault) 44.3 38.3 BUN/Creatinine Ratio 23 (6-20) 22 (6-20) Glucose Level 78 mg/dL (70-99) 89 mg/dL (70-99) Calcium Level 9.3 mg/dL (8.5-10.1) 9.0 mg/dL (8.5-10.1) Total Bilirubin 0.5 mg/dL (0.2-1.0) 0.5 mg/dL (0.2-1.0) Aspartate Amino Transf (AST/SGOT) 14 U/L (15-37) 14 U/L (15-37) Alanine Aminotransferase (ALT/SGPT) 16 U/L (16-63) 13 U/L (16-63) Alkaline Phosphatase 50 U/L (46-116) 45 U/L (46-116) Total Protein 7.8 g/dL (6.4-8.2) 6.9 g/dL (6.4-8.2) Albumin 4.2 g/dL (3.4-5.0) 3.7 g/dL (3.4-5.0) Albumin/Globulin Ratio 1.2 (1.0-1.7) 1.2 (1.0-1.7) Laboratory Tests Test 06/23/19 04:00 White Blood Count 6.2 x10^3/uL (4.0-11.0) Red Blood Count 2.79 x10^6/uL (4.30-5.70) Hemoglobin 9.7 g/dL (13.0-17.5) Hematocrit 28.4 % (39.0-53.0) Mean Corpuscular Volume 102 fL (79-100) Mean Corpuscular Hemoglobin 35 pg (25-35) Mean Corpuscular Hemoglobin Concent 34 g/dL (31-37) Red Cell Distribution Width 15.8 % (11.5-14.5) Platelet Count 157 x10^3/uL (140-400) Neutrophils (%) (Auto) 50 % (31-73) Lymphocytes (%) (Auto) 35 % (24-48) Monocytes (%) (Auto) 11 % (0-9) Eosinophils (%) (Auto) 3 % (0-3) Basophils (%) (Auto) 1 % (0-3) Neutrophils # (Auto) 3.1 x10^3/uL (1.8-7.7) Lymphocytes # (Auto) 2.2 x10^3/uL (1.0-4.8) Monocytes # (Auto) 0.7 x10^3/uL (0.0-1.1) Eosinophils # (Auto) 0.2 x10^3/uL (0.0-0.7) Basophils # (Auto) 0.1 x10^3/uL (0.0-0.2) Sodium Level 143 mmol/L (136-145) Potassium Level 4.1 mmol/L (3.5-5.1) Chloride Level 105 mmol/L (98-107) Carbon Dioxide Level 29 mmol/L (21-32) Anion Gap 9 (6-14) Blood Urea Nitrogen 38 mg/dL (8-26) Creatinine 1.7 mg/dL (0.7-1.3) Estimated GFR (Cockcroft-Gault) 38.3 BUN/Creatinine Ratio 22 (6-20) Glucose Level 89 mg/dL (70-99) Calcium Level 9.0 mg/dL (8.5-10.1) Total Bilirubin 0.5 mg/dL (0.2-1.0) Aspartate Amino Transf (AST/SGOT) 14 U/L (15-37) Alanine Aminotransferase (ALT/SGPT) 13 U/L (16-63) Alkaline Phosphatase 45 U/L (46-116) Total Protein 6.9 g/dL (6.4-8.2) Albumin 3.7 g/dL (3.4-5.0) Albumin/Globulin Ratio 1.2 (1.0-1.7) Medications Current Medications Aspirin (Ecotrin) 81 mg DAILY08 PO Last administered on 06/23/19at 08:40; Start 06/19/19 at 08:00 Acetaminophen/ Hydrocodone Bitart (Lortab 5/325) 1 tab PRN QID PRN PO PAIN; Start 06/18/19 at 15:00; Stop 06/18/19 at 15:10; Status DC Lisinopril (Prinivil) 5 mg HS PO Last administered on 06/21/19at 21:24; Start 06/18/19 at 21:00; Stop 06/22/19 at 08:16; Status DC Sennosides (Senna) 8.6 mg BID PO Last administered on 06/23/19at 08:40; Start 06/18/19 at 21:00 Tamsulosin HCl (Flomax) 0.4 mg DAILY PO ; Start 06/19/19 at 09:00; Stop 06/18/19 at 20:00; Status DC Calcium Carbonate/ Glycine (Tums) 500 mg PRN AFTMEALHC PRN PO INDIGESTION; Start 06/18/19 at 15:00 Ondansetron HCl (Zofran) 4 mg PRN Q6HRS PRN IVP NAUSEA/VOMITING; Start 06/18/19 at 15:00 Temazepam (Restoril) 7.5 mg PRN QHS PRN PO INSOMNIA; Start 06/18/19 at 15:00 Clonidine HCl (Catapres) 0.1 mg PRN Q1HR PRN PO HYPERTENSION; Start 06/18/19 at 15:00 Albuterol Sulfate (Ventolin Neb Soln) 2.5 mg PRN Q4HRS PRN NEB SHORTNESS OF BREATH Last administered on 06/21/19at 15:50; Start 06/18/19 at 15:00 Guaifenesin/ Codeine Phosphate (Robitussin Ac) 5 ml PRN Q6HRS PRN PO COUGH; Start 06/18/19 at 15:00 Acetaminophen/ Hydrocodone Bitart (Lortab 5/325) 1 tab PRN Q4HRS PRN PO PAIN Last administered on 06/19/19at 08:51; Start 06/18/19 at 15:00; Stop 06/19/19 at 10:33; Status DC Sodium Chloride 1,000 ml @ 75 mls/hr 1X ONCE IV Last administered on 06/18/19at 20:26; Start 06/18/19 at 15:00; Stop 06/19/19 at 04:19; Status DC Memantine (Namenda) 10 mg BID PO Last administered on 06/23/19at 08:39; Start 06/18/19 at 21:00 Donepezil HCl (Aricept) 5 mg DAILY PO Last administered on 06/23/19at 08:39; Start 06/19/19 at 09:00 Multivitamins (Thera M Plus) 1 tab DAILY PO Last administered on 06/23/19at 08:40; Start 06/19/19 at 09:00 Vitamin B Complex (Folbic Tablet) 1 tab DAILY PO Last administered on 06/23/19at 08:40; Start 06/19/19 at 09:00 Quetiapine Fumarate (SEROquel) 25 mg BID PO Last administered on 06/23/19 08:40; Start 06/18/19 at 21:00 Vitamin D (Vitamin D3) 1,000 unit DAILY PO Last administered on 06/23/19 08:40; Start 06/19/19 at 09:00 Prednisone (Prednisone) 10 mg DAILY PO Last administered on 06/23/19 08:40; Start 06/19/19 at 10:30 Pantoprazole Sodium (Protonix) 40 mg DAILYAC PO Last administered on 06/23/19 06:05; Start 06/19/19 at 10:30 Tizanidine HCl (Zanaflex) 4 mg PRN Q8HRS PRN PO MUSCLE SPASMS Last administered on 06/20/19 10:04; Start 06/19/19 at 10:30 Acetaminophen/ Hydrocodone Bitart (Lortab 10/325) 1 tab PRN Q6HRS PRN PO MODERATE PAIN Last administered on 06/23/19 09:42; Start 06/19/19 at 10:30 Oxycodone/ Acetaminophen (Percocet 10/325) 1 tab PRN Q4HRS PRN PO SEVERE PAIN Last administered on 06/23/19 00:37; Start 06/20/19 at 12:30 Polysaccharide Iron Complex (Niferex 150) 150 mg BID PO Last administered on 06/23/19 08:39; Start 06/21/19 at 21:00 Lisinopril (Prinivil) 10 mg QHS PO Last administered on 06/22/19 20:34; Start 06/22/19 at 21:00 Active Scripts Active Lisinopril 10 Mg Tablet 1 Tab PO DAILY Thera-M Tablet (Multivits,Ca,Minerals/Iron/Fa) 1 Each Tablet 1 Tab PO DAILY Folbic Tablet (Cyanocobalamin/Fa/Pyridoxine) 1 Each Tablet 1 Tab PO DAILY Prednisone (Prednisone) 10 Mg Tablet 10 Mg PO DAILY 4 Days [guaiFENesin/CODEINE 100mg/10mg] 5 ML Liquid 5 Ml PO PRN Q6HRS PRN 10 Days Proair Hfa (Albuterol Sulfate) 8.5 Gm Hfa.aer.ad 2.5 Mg NEB PRN Q4HRS PRN 30 Days Tizanidine Hcl 4 Mg Tablet 4 Mg PO PRN Q8HRS PRN Hydrocodone-Apap 5-325 (Hydrocodone Bit/Acetaminophen) 1 Each Tablet 1 Tab PO PRN Q4-6HRS PRN Reported Namenda (Memantine Hcl) 10 Mg Tablet 1 Tab PO BID Vitamin D3 (Cholecalciferol (Vitamin D3)) 1,000 Unit Tablet 1 Tab PO DAILY Donepezil Hcl 10 Mg Tablet 1 Tab PO DAILY Seroquel (Quetiapine Fumarate) 25 Mg Tablet 25 Mg PO BID Senokot (Sennosides) 8.6 Mg Tablet 1 Tab PO BID Aspir 81 (Aspirin) 81 Mg Tablet.dr 81 Mg PO DAILY08 Lisinopril 5 Mg Tablet 5 Mg PO HS Vitals/I & O Vital Sign - Last 24 Hours 06/22/19 06/22/19 06/22/19 06/22/19 11:00 13:43 14:43 15:10 Temp 97.6 98.0 97.6 98.0 Pulse 66 71 Resp 18 18 18 20 B/P (MAP) 127/62 (83) 131/80 (97) Pulse Ox 99 98 O2 Delivery Room Air Room Air Room Air Room Air 06/22/19 06/22/19 06/22/19 06/22/19 18:02 19:02 19:11 20:14 Temp 97.9 97.9 Pulse 70 Resp 18 B/P (MAP) 149/87 (107) Pulse Ox 98 96 O2 Delivery Room Air Room Air Room Air 06/22/19 06/22/19 06/23/19 06/23/19 20:34 23:34 00:37 01:37 Temp 97.7 97.7 Pulse 70 68 Resp 18 B/P (MAP) 149/87 139/59 (85) Pulse Ox 96 96 96 O2 Delivery Room Air Room Air Room Air 06/23/19 06/23/19 07:00 09:42 Temp 98.2 98.2 Pulse 60 Resp 16 18 B/P (MAP) 144/79 (100) Pulse Ox 97 O2 Delivery Room Air Room Air Intake and Output 06/22/19 06/22/19 06/23/19 15:00 23:00 07:00 Intake Total 1040 ml 180 ml 240 ml Output Total 100 ml Balance 1040 ml 180 ml 140 ml MARTITA DAVIS MD Jun 23, 2019 10:19
[2019-06-23 11:00] VITALS: BP 129/63
[2019-06-23] MEDS ORDERED: methylPREDNISolone ACETATE 40 MG/ML VIAL. IM ONE (13:00)
[2019-06-23] MEDS ORDERED: BUPIVACAINE MPF 0.25% 10 ML VIAL. IJ ONE (13:00)
[2019-06-23] MEDS ORDERED: MORPHINE SULFATE 4 MG/ML VIAL. IM PRN (13:00)
--- NOTE | 2019-06-23 13:09 | PDOC ---
PROGRESS NOTES Subjective Subjective He admits continued right buttock area pain and he could could not lie still to have mri scan done this AM. Objective Objective Vital Signs Date Time Temp Pulse Resp B/P (MAP) Pulse Ox O2 Delivery O2 Flow Rate FiO2 06/23/19 11:05 18 Room Air 06/23/19 11:00 97.8 56 129/63 (85) 96 97.8 Intake and Output 06/23/19 07:00 Intake Total 1460 ml Output Total 100 ml Balance 1360 ml Intake Oral 1460 ml Output Urine Total 100 ml # Voids 10 Physical Exam Physical Exam He continues with tenderness to palpation over right sacroiliac joint area and he had no changenoted with his neurological examination and he had pain free ROM of both hip joints and SLR test is negative bilaterally. Assessment Assessment Problems Medical Problems: (1) Short of breath on exertion Status: Acute Plan Plan of Care To let him try to have mri scan with pre medication with daizepam and morphine and to consider injecting painful right sacroiliac joint or consider lumbar epidural steroid injection if pain persists. Comment Review of Relevant I have reviewed the following items get (where applicable) has been applied. Labs Laboratory Tests Test 06/22/19 06:00 06/23/19 04:00 White Blood Count 6.9 x10^3/uL (4.0-11.0) 6.2 x10^3/uL (4.0-11.0) Red Blood Count 2.99 x10^6/uL (4.30-5.70) 2.79 x10^6/uL (4.30-5.70) Hemoglobin 10.4 g/dL (13.0-17.5) 9.7 g/dL (13.0-17.5) Hematocrit 30.4 % (39.0-53.0) 28.4 % (39.0-53.0) Mean Corpuscular Volume 101 fL (79-100) 102 fL (79-100) Mean Corpuscular Hemoglobin 35 pg (25-35) 35 pg (25-35) Mean Corpuscular Hemoglobin Concent 34 g/dL (31-37) 34 g/dL (31-37) Red Cell Distribution Width 15.7 % (11.5-14.5) 15.8 % (11.5-14.5) Platelet Count 183 x10^3/uL (140-400) 157 x10^3/uL (140-400) Neutrophils (%) (Auto) 55 % (31-73) 50 % (31-73) Lymphocytes (%) (Auto) 32 % (24-48) 35 % (24-48) Monocytes (%) (Auto) 9 % (0-9) 11 % (0-9) Eosinophils (%) (Auto) 3 % (0-3) 3 % (0-3) Basophils (%) (Auto) 1 % (0-3) 1 % (0-3) Neutrophils # (Auto) 3.8 x10^3/uL (1.8-7.7) 3.1 x10^3/uL (1.8-7.7) Lymphocytes # (Auto) 2.2 x10^3/uL (1.0-4.8) 2.2 x10^3/uL (1.0-4.8) Monocytes # (Auto) 0.6 x10^3/uL (0.0-1.1) 0.7 x10^3/uL (0.0-1.1) Eosinophils # (Auto) 0.2 x10^3/uL (0.0-0.7) 0.2 x10^3/uL (0.0-0.7) Basophils # (Auto) 0.1 x10^3/uL (0.0-0.2) 0.1 x10^3/uL (0.0-0.2) Sodium Level 143 mmol/L (136-145) 143 mmol/L (136-145) Potassium Level 4.3 mmol/L (3.5-5.1) 4.1 mmol/L (3.5-5.1) Chloride Level 105 mmol/L (98-107) 105 mmol/L (98-107) Carbon Dioxide Level 27 mmol/L (21-32) 29 mmol/L (21-32) Anion Gap 11 (6-14) 9 (6-14) Blood Urea Nitrogen 35 mg/dL (8-26) 38 mg/dL (8-26) Creatinine 1.5 mg/dL (0.7-1.3) 1.7 mg/dL (0.7-1.3) Estimated GFR (Cockcroft-Gault) 44.3 38.3 BUN/Creatinine Ratio 23 (6-20) 22 (6-20) Glucose Level 78 mg/dL (70-99) 89 mg/dL (70-99) Calcium Level 9.3 mg/dL (8.5-10.1) 9.0 mg/dL (8.5-10.1) Total Bilirubin 0.5 mg/dL (0.2-1.0) 0.5 mg/dL (0.2-1.0) Aspartate Amino Transf (AST/SGOT) 14 U/L (15-37) 14 U/L (15-37) Alanine Aminotransferase (ALT/SGPT) 16 U/L (16-63) 13 U/L (16-63) Alkaline Phosphatase 50 U/L (46-116) 45 U/L (46-116) Total Protein 7.8 g/dL (6.4-8.2) 6.9 g/dL (6.4-8.2) Albumin 4.2 g/dL (3.4-5.0) 3.7 g/dL (3.4-5.0) Albumin/Globulin Ratio 1.2 (1.0-1.7) 1.2 (1.0-1.7) Laboratory Tests Test 06/23/19 04:00 White Blood Count 6.2 x10^3/uL (4.0-11.0) Red Blood Count 2.79 x10^6/uL (4.30-5.70) Hemoglobin 9.7 g/dL (13.0-17.5) Hematocrit 28.4 % (39.0-53.0) Mean Corpuscular Volume 102 fL (79-100) Mean Corpuscular Hemoglobin 35 pg (25-35) Mean Corpuscular Hemoglobin Concent 34 g/dL (31-37) Red Cell Distribution Width 15.8 % (11.5-14.5) Platelet Count 157 x10^3/uL (140-400) Neutrophils (%) (Auto) 50 % (31-73) Lymphocytes (%) (Auto) 35 % (24-48) Monocytes (%) (Auto) 11 % (0-9) Eosinophils (%) (Auto) 3 % (0-3) Basophils (%) (Auto) 1 % (0-3) Neutrophils # (Auto) 3.1 x10^3/uL (1.8-7.7) Lymphocytes # (Auto) 2.2 x10^3/uL (1.0-4.8) Monocytes # (Auto) 0.7 x10^3/uL (0.0-1.1) Eosinophils # (Auto) 0.2 x10^3/uL (0.0-0.7) Basophils # (Auto) 0.1 x10^3/uL (0.0-0.2) Sodium Level 143 mmol/L (136-145) Potassium Level 4.1 mmol/L (3.5-5.1) Chloride Level 105 mmol/L (98-107) Carbon Dioxide Level 29 mmol/L (21-32) Anion Gap 9 (6-14) Blood Urea Nitrogen 38 mg/dL (8-26) Creatinine 1.7 mg/dL (0.7-1.3) Estimated GFR (Cockcroft-Gault) 38.3 BUN/Creatinine Ratio 22 (6-20) Glucose Level 89 mg/dL (70-99) Calcium Level 9.0 mg/dL (8.5-10.1) Total Bilirubin 0.5 mg/dL (0.2-1.0) Aspartate Amino Transf (AST/SGOT) 14 U/L (15-37) Alanine Aminotransferase (ALT/SGPT) 13 U/L (16-63) Alkaline Phosphatase 45 U/L (46-116) Total Protein 6.9 g/dL (6.4-8.2) Albumin 3.7 g/dL (3.4-5.0) Albumin/Globulin Ratio 1.2 (1.0-1.7) Medications Current Medications Aspirin (Ecotrin) 81 mg DAILY08 PO Last administered on 06/23/19at 08:40; Start 06/19/19 at 08:00 Acetaminophen/ Hydrocodone Bitart (Lortab 5/325) 1 tab PRN QID PRN PO PAIN; Start 06/18/19 at 15:00; Stop 06/18/19 at 15:10; Status DC Lisinopril (Prinivil) 5 mg HS PO Last administered on 06/21/19at 21:24; Start 06/18/19 at 21:00; Stop 06/22/19 at 08:16; Status DC Sennosides (Senna) 8.6 mg BID PO Last administered on 06/23/19at 08:40; Start 06/18/19 at 21:00 Tamsulosin HCl (Flomax) 0.4 mg DAILY PO ; Start 06/19/19 at 09:00; Stop 06/18/19 at 20:00; Status DC Calcium Carbonate/ Glycine (Tums) 500 mg PRN AFTMEALHC PRN PO INDIGESTION; Start 06/18/19 at 15:00 Ondansetron HCl (Zofran) 4 mg PRN Q6HRS PRN IVP NAUSEA/VOMITING; Start 06/18/19 at 15:00 Temazepam (Restoril) 7.5 mg PRN QHS PRN PO INSOMNIA; Start 06/18/19 at 15:00 Clonidine HCl (Catapres) 0.1 mg PRN Q1HR PRN PO HYPERTENSION; Start 06/18/19 at 15:00 Albuterol Sulfate (Ventolin Neb Soln) 2.5 mg PRN Q4HRS PRN NEB SHORTNESS OF BREATH Last administered on 06/21/19at 15:50; Start 06/18/19 at 15:00 Guaifenesin/ Codeine Phosphate (Robitussin Ac) 5 ml PRN Q6HRS PRN PO COUGH; Start 06/18/19 at 15:00 Acetaminophen/ Hydrocodone Bitart (Lortab 5/325) 1 tab PRN Q4HRS PRN PO PAIN Last administered on 06/19/19at 08:51; Start 06/18/19 at 15:00; Stop 06/19/19 at 10:33; Status DC Sodium Chloride 1,000 ml @ 75 mls/hr 1X ONCE IV Last administered on 06/18/19at 20:26; Start 06/18/19 at 15:00; Stop 06/19/19 at 04:19; Status DC Memantine (Namenda) 10 mg BID PO Last administered on 06/23/19at 08:39; Start 06/18/19 at 21:00 Donepezil HCl (Aricept) 5 mg DAILY PO Last administered on 06/23/19at 08:39; Start 06/19/19 at 09:00 Multivitamins (Thera M Plus) 1 tab DAILY PO Last administered on 06/23/19at 08:40; Start 06/19/19 at 09:00 Vitamin B Complex (Folbic Tablet) 1 tab DAILY PO Last administered on 06/23/19 08:40; Start 06/19/19 at 09:00 Quetiapine Fumarate (SEROquel) 25 mg BID PO Last administered on 06/23/19 08:40; Start 06/18/19 at 21:00 Vitamin D (Vitamin D3) 1,000 unit DAILY PO Last administered on 06/23/19 08:40; Start 06/19/19 at 09:00 Prednisone (Prednisone) 10 mg DAILY PO Last administered on 06/23/19 08:40; Start 06/19/19 at 10:30 Pantoprazole Sodium (Protonix) 40 mg DAILYAC PO Last administered on 06/23/19 06:05; Start 06/19/19 at 10:30 Tizanidine HCl (Zanaflex) 4 mg PRN Q8HRS PRN PO MUSCLE SPASMS Last administered on 06/20/19 10:04; Start 06/19/19 at 10:30 Acetaminophen/ Hydrocodone Bitart (Lortab 10/325) 1 tab PRN Q6HRS PRN PO MODERATE PAIN Last administered on 06/23/19 09:42; Start 06/19/19 at 10:30 Oxycodone/ Acetaminophen (Percocet 10/325) 1 tab PRN Q4HRS PRN PO SEVERE PAIN Last administered on 06/23/19 00:37; Start 06/20/19 at 12:30 Polysaccharide Iron Complex (Niferex 150) 150 mg BID PO Last administered on 06/23/19 08:39; Start 06/21/19 at 21:00 Lisinopril (Prinivil) 10 mg QHS PO Last administered on 06/22/19 20:34; Start 06/22/19 at 21:00 Active Scripts Active Lisinopril 10 Mg Tablet 1 Tab PO DAILY Thera-M Tablet (Multivits,Ca,Minerals/Iron/Fa) 1 Each Tablet 1 Tab PO DAILY Folbic Tablet (Cyanocobalamin/Fa/Pyridoxine) 1 Each Tablet 1 Tab PO DAILY Prednisone (Prednisone) 10 Mg Tablet 10 Mg PO DAILY 4 Days [guaiFENesin/CODEINE 100mg/10mg] 5 ML Liquid 5 Ml PO PRN Q6HRS PRN 10 Days Proair Hfa (Albuterol Sulfate) 8.5 Gm Hfa.aer.ad 2.5 Mg NEB PRN Q4HRS PRN 30 Days Tizanidine Hcl 4 Mg Tablet 4 Mg PO PRN Q8HRS PRN Hydrocodone-Apap 5-325 (Hydrocodone Bit/Acetaminophen) 1 Each Tablet 1 Tab PO PRN Q4-6HRS PRN Reported Namenda (Memantine Hcl) 10 Mg Tablet 1 Tab PO BID Vitamin D3 (Cholecalciferol (Vitamin D3)) 1,000 Unit Tablet 1 Tab PO DAILY Donepezil Hcl 10 Mg Tablet 1 Tab PO DAILY Seroquel (Quetiapine Fumarate) 25 Mg Tablet 25 Mg PO BID Senokot (Sennosides) 8.6 Mg Tablet 1 Tab PO BID Aspir 81 (Aspirin) 81 Mg Tablet.dr 81 Mg PO DAILY08 Lisinopril 5 Mg Tablet 5 Mg PO HS Vitals/I & O Vital Sign - Last 24 Hours 06/22/19 06/22/19 06/22/19 06/22/19 13:43 14:43 15:10 18:02 Temp 98.0 98.0 Pulse 71 Resp 18 18 20 18 B/P (MAP) 131/80 (97) Pulse Ox 98 O2 Delivery Room Air Room Air Room Air Room Air 06/22/19 06/22/19 06/22/19 06/22/19 19:02 19:11 20:14 20:34 Temp 97.9 97.9 Pulse 70 70 B/P (MAP) 149/87 (107) 149/87 Pulse Ox 98 96 O2 Delivery Room Air Room Air 06/22/19 06/23/19 06/23/19 06/23/19 23:34 00:37 01:37 07:00 Temp 97.7 98.2 97.7 98.2 Pulse 68 60 Resp 18 16 B/P (MAP) 139/59 (85) 144/79 (100) Pulse Ox 96 96 96 97 O2 Delivery Room Air Room Air Room Air Room Air 06/23/19 06/23/19 06/23/19 06/23/19 08:00 09:42 11:00 11:05 Temp 97.8 97.8 Pulse 56 Resp 18 18 18 B/P (MAP) 129/63 (85) Pulse Ox 96 O2 Delivery Room Air Room Air Room Air Room Air Intake and Output 06/22/19 06/22/19 06/23/19 15:00 23:00 07:00 Intake Total 1040 ml 180 ml 240 ml Output Total 100 ml Balance 1040 ml 180 ml 140 ml JASPREET HO MD Jun 23, 2019 13:09
[2019-06-23] MEDS ORDERED: diazePAM 5 MG TABLET PO PRN (13:15)
--- NOTE | 2019-06-23 14:12 | NUR ---
SW following for discharge planning. Chart reviewed, discussed with RN. Pt to have an MRI today, was attempted this morning, however per RN, pt could not lay flat and was in significant amount of pain. MRI will be attempted again with stronger pain control. Plan is to discharge to [facility], pending insurance auth. CHAR will continue to follow.
--- NOTE | 2019-06-23 16:36 | RAD ---
MRI Lumbar Spine without contrast History: Low back pain, right leg radiculopathy Technique: Multiplanar, multi sequential noncontrast MR imaging was performed of the lumbar spine. Comparison: None Findings: There is severe motion degradation. Lumbar vertebral body stature is overall maintained. There is grade 1 anterior spondylolisthesis L5-S1, to lesser degree at L4-5 and L3-4. Conus terminates near L1 although poorly distinguished on this motion degraded exam. There is nonspecific edema of the posterior subcutaneous fat of the lower back. There is moderate to severe degenerative disc disease at L3-4 and L4-5, to lesser degree at L2-3 and L5-S1. There is [id number] levoscoliosis centered near L2. There is likely at least mild left lateral subluxation L2 relative to L3 and L3 relative to L4. L1-L2: This level was not included on the axial images. Spinal canal is grossly patent. Neural foramina are not obviously narrowed. Appearance of heterogeneity in the thecal sac at the L1 level may be accentuated by motion degradation, although otherwise cannot accurately characterize. L2-L3: There is facet hypertrophic change and buckling of the ligamentum flavum. There is disc osteophyte complex. There is likely at least mild if not moderate lateral recess stenosis bilaterally although poorly characterized on this motion degraded exam. There may be moderate narrowing of the right neural foramen by disc osteophyte complex and facet, likely mild narrowing of the left although poorly characterized. L3-L4: There is facet hypertrophic change and buckling of the ligamentum flavum. There is posterior bulge. There is suspected severe spinal stenosis including lateral recess stenosis bilaterally with impingement of the descending L4 nerve roots. There is likely moderate to severe neural foramina compromise greater on the left. L4-L5: There is prominence of posterior epidural fat centrally. There is buckling of the ligamentum flavum and facet degenerative change. There is posterior bulge. There is likely moderate to severe lateral recess stenosis bilaterally and moderate narrowing of the central canal. There is probable moderate to severe narrowing of the left neural foramen, right neural foramen not significantly narrowed. L5-S1: There is bilateral facet hypertrophic change and mild buckling of the ligamentum flavum. There is likely mild narrowing of the far left lateral recess. There is [id number] right and likely moderate left neural foramina compromise. Impression: 1. Exam is degraded by significant motion. There is severe spinal stenosis L3-4, other multilevel lateral recess stenosis greatest bilaterally at L4-5 and L2-3. 2. There is suspected multilevel neural foramina compromise, although poorly characterized due to motion. Neural foramina compromise is greatest bilaterally at L3-4 and on the left at L4-5, lesser degree of narrowing on the right at L2-3 and bilaterally at L5-S1. 3. There is degenerative disc disease greatest at L3-4. 4. There is mild abnormal alignment as stated. There is lumbar levoscoliosis. Electronically signed by: Matt Song MD (06/23/2019 4:33 PM) [id number]
[2019-06-23 19:00] VITALS: BP 104/66
[2019-06-23] MEDS: LISINOPRIL 10 MG TABLET PO SCH (21:06)
[2019-06-23 23:00] VITALS: BP 107/59
[2019-06-24 03:00] VITALS: BP 107/68
[2019-06-24] MEDS: HYDROcodone/APAP 10/325 1 TAB TABLET PO PRN (03:52)
[2019-06-24 04:28] LABS: BASO # 0.1 x10^3/uL (0.0-0.2); BASO % 1 % (0-3); EOS # 0.2 x10^3/uL (0.0-0.7); EOS % 4 % (0-3); HEMATOCRIT 29.2 % (39.0-53.0); LYMPH # 2.1 x10^3/uL (1.0-4.8); LYMPH % 37 % (24-48); MEAN CORPUSCULAR HEMOGLOBIN 35 pg (25-35); MEAN CORPUSCULAR HGB CONC 34 g/dL (31-37); MEAN CORPUSCULAR VOLUME 101 fL (79-100); MONO # 0.5 x10^3/uL (0.0-1.1); MONO % 9 % (0-9); NEUT # 2.8 x10^3/uL (1.8-7.7); NEUT % 49 % (31-73); PLATELET COUNT 176 x10^3/uL (140-400); RED BLOOD COUNT 2.88 x10^6/uL (4.30-5.70); WHITE BLOOD COUNT 5.7 x10^3/uL (4.0-11.0)
[2019-06-24 04:49] LABS: ALBUMIN 3.8 g/dL (3.4-5.0); ALBUMIN/GLOBULIN RATIO 1.2 (1.0-1.7); CALCIUM 8.9 mg/dL (8.5-10.1); CREATININE 1.4 mg/dL (0.7-1.3); GFR 47.9; POTASSIUM 4.2 mmol/L (3.5-5.1); TOTAL BILIRUBIN 0.5 mg/dL (0.2-1.0); TOTAL PROTEIN 7.1 g/dL (6.4-8.2)
[2019-06-24 07:00] VITALS: BP 115/66
[2019-06-24] MEDS: IRON POLYSACCHARIDE COMPLEX 150 MG CAPSULE PO SCH ×2 (09:08→20:50)
[2019-06-24] MEDS: PANTOPRAZOLE 40 MG TABLET.DR. PO SCH (09:08)
--- NOTE | 2019-06-24 09:08 | NUR ---
CHAR following for discharge planning. Chart reviewed, discussed with RN. Pt had MRI done yesterday, plan is to have injection by Dr. Garsia today. CHAR contacted Leann at [facility] to determine if SNU has been approved. Leann reported there was no MRI report in the chart when she last looked at 1800 last night. She will look again today and make a decision. Pt MUST work with PT/OT in order to be approved for SNU. RN notified. CHAR will continue to follow.
[2019-06-24] MEDS: predniSONE 10 MG TABLET PO SCH (09:09)
[2019-06-24] MEDS: QUEtiapine 25 MG TABLET. PO SCH ×2 (09:09→20:49)
[2019-06-24] MEDS: MEMANTINE 10 MG TABLET. PO SCH ×2 (09:09→20:49)
[2019-06-24] MEDS: SENNOSIDES 8.6 MG TABLET PO SCH ×2 (09:09→20:49)
[2019-06-24] MEDS: CHOLECALCIFEROL (VITAMIN D3) 1,000 UNIT TABLET PO SCH (09:09)
[2019-06-24] MEDS: MULTIVITAMIN with MINERAL TABLET. PO SCH (09:09)
[2019-06-24] MEDS: DONEPEZIL HCL 5 MG TABLET. PO SCH (09:09)
[2019-06-24] MEDS: ASPIRIN ENTERIC COATED 81 MG TABLET.DR. PO SCH (09:09)
[2019-06-24] MEDS: VITAMIN B12,B9,B6 COMPLEX 1 TABLET. PO SCH (09:09)
--- NOTE | 2019-06-24 09:42 | PDOC ---
PROGRESS NOTES Subjective Subjective He continues with right hip area pain. Objective Objective Vital Signs Date Time Temp Pulse Resp B/P (MAP) Pulse Ox O2 Delivery O2 Flow Rate FiO2 06/24/19 07:00 98.1 50 16 115/66 (82) 97 Room Air 98.1 Intake and Output 06/24/19 07:00 Intake Total 210 ml Output Total 300 ml Balance -90 ml Intake Oral 210 ml Output Urine Total 300 ml # Voids 6 Physical Exam Physical Exam Mri scan of lumbar vertebrae revealed severe lumbar spinal stenosis at L3-L4 with associated neural foraminal compromize. He is sitting up in bedside chair. No change with his neurological status. Assessment Assessment Problems Medical Problems: (1) Short of breath on exertion Status: Acute Plan Plan of Care To ask for neurosurgical consult,as I doubt right sacroiliac joint injecion or lumbar epidural steroid inection is going to ease his pain on a halfway basis with that degree of lumbar spinal stenosis. Comment Review of Relevant I have reviewed the following items get (where applicable) has been applied. Labs Laboratory Tests Test 06/23/19 04:00 06/23/19 13:42 06/24/19 03:35 White Blood Count 6.2 x10^3/uL (4.0-11.0) 5.7 x10^3/uL (4.0-11.0) Red Blood Count 2.79 x10^6/uL (4.30-5.70) 2.88 x10^6/uL (4.30-5.70) Hemoglobin 9.7 g/dL (13.0-17.5) 10.0 g/dL (13.0-17.5) Hematocrit 28.4 % (39.0-53.0) 29.2 % (39.0-53.0) Mean Corpuscular Volume 102 fL (79-100) 101 fL (79-100) Mean Corpuscular Hemoglobin 35 pg (25-35) 35 pg (25-35) Mean Corpuscular Hemoglobin Concent 34 g/dL (31-37) 34 g/dL (31-37) Red Cell Distribution Width 15.8 % (11.5-14.5) 16.0 % (11.5-14.5) Platelet Count 157 x10^3/uL (140-400) 176 x10^3/uL (140-400) Neutrophils (%) (Auto) 50 % (31-73) 49 % (31-73) Lymphocytes (%) (Auto) 35 % (24-48) 37 % (24-48) Monocytes (%) (Auto) 11 % (0-9) 9 % (0-9) Eosinophils (%) (Auto) 3 % (0-3) 4 % (0-3) Basophils (%) (Auto) 1 % (0-3) 1 % (0-3) Neutrophils # (Auto) 3.1 x10^3/uL (1.8-7.7) 2.8 x10^3/uL (1.8-7.7) Lymphocytes # (Auto) 2.2 x10^3/uL (1.0-4.8) 2.1 x10^3/uL (1.0-4.8) Monocytes # (Auto) 0.7 x10^3/uL (0.0-1.1) 0.5 x10^3/uL (0.0-1.1) Eosinophils # (Auto) 0.2 x10^3/uL (0.0-0.7) 0.2 x10^3/uL (0.0-0.7) Basophils # (Auto) 0.1 x10^3/uL (0.0-0.2) 0.1 x10^3/uL (0.0-0.2) Sodium Level 143 mmol/L (136-145) 141 mmol/L (136-145) Potassium Level 4.1 mmol/L (3.5-5.1) 4.2 mmol/L (3.5-5.1) Chloride Level 105 mmol/L (98-107) 103 mmol/L (98-107) Carbon Dioxide Level 29 mmol/L (21-32) 29 mmol/L (21-32) Anion Gap 9 (6-14) 9 (6-14) Blood Urea Nitrogen 38 mg/dL (8-26) 35 mg/dL (8-26) Creatinine 1.7 mg/dL (0.7-1.3) 1.4 mg/dL (0.7-1.3) Estimated GFR (Cockcroft-Gault) 38.3 47.9 BUN/Creatinine Ratio 22 (6-20) 25 (6-20) Glucose Level 89 mg/dL (70-99) 98 mg/dL (70-99) Calcium Level 9.0 mg/dL (8.5-10.1) 8.9 mg/dL (8.5-10.1) Total Bilirubin 0.5 mg/dL (0.2-1.0) 0.5 mg/dL (0.2-1.0) Aspartate Amino Transf (AST/SGOT) 14 U/L (15-37) 15 U/L (15-37) Alanine Aminotransferase (ALT/SGPT) 13 U/L (16-63) 14 U/L (16-63) Alkaline Phosphatase 45 U/L (46-116) 46 U/L (46-116) Total Protein 6.9 g/dL (6.4-8.2) 7.1 g/dL (6.4-8.2) Albumin 3.7 g/dL (3.4-5.0) 3.8 g/dL (3.4-5.0) Albumin/Globulin Ratio 1.2 (1.0-1.7) 1.2 (1.0-1.7) Erythrocyte Sedimentation Rate 33 (0-15) Laboratory Tests Test 06/23/19 13:42 06/24/19 03:35 Erythrocyte Sedimentation Rate 33 (0-15) White Blood Count 5.7 x10^3/uL (4.0-11.0) Red Blood Count 2.88 x10^6/uL (4.30-5.70) Hemoglobin 10.0 g/dL (13.0-17.5) Hematocrit 29.2 % (39.0-53.0) Mean Corpuscular Volume 101 fL (79-100) Mean Corpuscular Hemoglobin 35 pg (25-35) Mean Corpuscular Hemoglobin Concent 34 g/dL (31-37) Red Cell Distribution Width 16.0 % (11.5-14.5) Platelet Count 176 x10^3/uL (140-400) Neutrophils (%) (Auto) 49 % (31-73) Lymphocytes (%) (Auto) 37 % (24-48) Monocytes (%) (Auto) 9 % (0-9) Eosinophils (%) (Auto) 4 % (0-3) Basophils (%) (Auto) 1 % (0-3) Neutrophils # (Auto) 2.8 x10^3/uL (1.8-7.7) Lymphocytes # (Auto) 2.1 x10^3/uL (1.0-4.8) Monocytes # (Auto) 0.5 x10^3/uL (0.0-1.1) Eosinophils # (Auto) 0.2 x10^3/uL (0.0-0.7) Basophils # (Auto) 0.1 x10^3/uL (0.0-0.2) Sodium Level 141 mmol/L (136-145) Potassium Level 4.2 mmol/L (3.5-5.1) Chloride Level 103 mmol/L (98-107) Carbon Dioxide Level 29 mmol/L (21-32) Anion Gap 9 (6-14) Blood Urea Nitrogen 35 mg/dL (8-26) Creatinine 1.4 mg/dL (0.7-1.3) Estimated GFR (Cockcroft-Gault) 47.9 BUN/Creatinine Ratio 25 (6-20) Glucose Level 98 mg/dL (70-99) Calcium Level 8.9 mg/dL (8.5-10.1) Total Bilirubin 0.5 mg/dL (0.2-1.0) Aspartate Amino Transf (AST/SGOT) 15 U/L (15-37) Alanine Aminotransferase (ALT/SGPT) 14 U/L (16-63) Alkaline Phosphatase 46 U/L (46-116) Total Protein 7.1 g/dL (6.4-8.2) Albumin 3.8 g/dL (3.4-5.0) Albumin/Globulin Ratio 1.2 (1.0-1.7) Medications Current Medications Aspirin (Ecotrin) 81 mg DAILY08 PO Last administered on 06/24/19at 09:09; Start 06/19/19 at 08:00 Acetaminophen/ Hydrocodone Bitart (Lortab 5/325) 1 tab PRN QID PRN PO PAIN; Start 06/18/19 at 15:00; Stop 06/18/19 at 15:10; Status DC Lisinopril (Prinivil) 5 mg HS PO Last administered on 06/21/19at 21:24; Start 06/18/19 at 21:00; Stop 06/22/19 at 08:16; Status DC Sennosides (Senna) 8.6 mg BID PO Last administered on 06/24/19at 09:09; Start 06/18/19 at 21:00 Tamsulosin HCl (Flomax) 0.4 mg DAILY PO ; Start 06/19/19 at 09:00; Stop 06/18/19 at 20:00; Status DC Calcium Carbonate/ Glycine (Tums) 500 mg PRN AFTMEALHC PRN PO INDIGESTION; Start 06/18/19 at 15:00 Ondansetron HCl (Zofran) 4 mg PRN Q6HRS PRN IVP NAUSEA/VOMITING; Start 06/18/19 at 15:00 Temazepam (Restoril) 7.5 mg PRN QHS PRN PO INSOMNIA; Start 06/18/19 at 15:00 Clonidine HCl (Catapres) 0.1 mg PRN Q1HR PRN PO HYPERTENSION; Start 06/18/19 at 15:00 Albuterol Sulfate (Ventolin Neb Soln) 2.5 mg PRN Q4HRS PRN NEB SHORTNESS OF BREATH Last administered on 06/21/19at 15:50; Start 06/18/19 at 15:00 Guaifenesin/ Codeine Phosphate (Robitussin Ac) 5 ml PRN Q6HRS PRN PO COUGH; Start 06/18/19 at 15:00 Acetaminophen/ Hydrocodone Bitart (Lortab 5/325) 1 tab PRN Q4HRS PRN PO PAIN Last administered on 06/19/19at 08:51; Start 06/18/19 at 15:00; Stop 06/19/19 at 10:33; Status DC Sodium Chloride 1,000 ml @ 75 mls/hr 1X ONCE IV Last administered on 06/18/19at 20:26; Start 06/18/19 at 15:00; Stop 06/19/19 at 04:19; Status DC Memantine (Namenda) 10 mg BID PO Last administered on 06/24/19at 09:09; Start 06/18/19 at 21:00 Donepezil HCl (Aricept) 5 mg DAILY PO Last administered on 06/24/19at 09:09; Start 06/19/19 at 09:00 Multivitamins (Thera M Plus) 1 tab DAILY PO Last administered on 06/24/19 09:09; Start 06/19/19 at 09:00 Vitamin B Complex (Folbic Tablet) 1 tab DAILY PO Last administered on 06/24/19 09:09; Start 06/19/19 at 09:00 Quetiapine Fumarate (SEROquel) 25 mg BID PO Last administered on 06/24/19 09:09; Start 06/18/19 at 21:00 Vitamin D (Vitamin D3) 1,000 unit DAILY PO Last administered on 06/24/19 09:09; Start 06/19/19 at 09:00 Prednisone (Prednisone) 10 mg DAILY PO Last administered on 06/24/19 09:09; Start 06/19/19 at 10:30 Pantoprazole Sodium (Protonix) 40 mg DAILYAC PO Last administered on 06/24/19 09:08; Start 06/19/19 at 10:30 Tizanidine HCl (Zanaflex) 4 mg PRN Q8HRS PRN PO MUSCLE SPASMS Last administered on 06/20/19at 10:04; Start 06/19/19 at 10:30 Acetaminophen/ Hydrocodone Bitart (Lortab 10/325) 1 tab PRN Q6HRS PRN PO MODERATE PAIN Last administered on 06/24/19 03:52; Start 06/19/19 at 10:30 Oxycodone/ Acetaminophen (Percocet 10/325) 1 tab PRN Q4HRS PRN PO SEVERE PAIN Last administered on 06/23/19 00:37; Start 06/20/19 at 12:30 Polysaccharide Iron Complex (Niferex 150) 150 mg BID PO Last administered on 06/24/19 09:08; Start 06/21/19 at 21:00 Lisinopril (Prinivil) 10 mg QHS PO Last administered on 06/23/19 21:06; Start 06/22/19 at 21:00 Methylprednisolone Acetate (DEPO-Medrol 40MG VIAL) 40 mg 1X ONCE IM ; Start 06/23/19 at 13:00; Stop 06/23/19 at 13:01; Status DC Bupivacaine HCl (Sensorcaine-Mpf 0.25%) 10 ml 1X ONCE IJ ; Start 06/23/19 at 13:00; Stop 06/23/19 at 13:01; Status DC Diazepam (Valium) 5 mg OC PROC PRN PO PRE -MRI X1 Last administered on 06/23/19at 14:16; Start 06/23/19 at 13:15; Stop 06/24/19 at 13:14 Morphine Sulfate (Morphine Sulfate) 4 mg OC PROC PRN IM PRE-MRI X1 Last administered on 06/23/19at 15:02; Start 06/23/19 at 13:00; Stop 06/24/19 at 12:59 Active Scripts Active Lisinopril 10 Mg Tablet 1 Tab PO DAILY Thera-M Tablet (Multivits,Ca,Minerals/Iron/Fa) 1 Each Tablet 1 Tab PO DAILY Folbic Tablet (Cyanocobalamin/Fa/Pyridoxine) 1 Each Tablet 1 Tab PO DAILY Prednisone (Prednisone) 10 Mg Tablet 10 Mg PO DAILY 4 Days [guaiFENesin/CODEINE 100mg/10mg] 5 ML Liquid 5 Ml PO PRN Q6HRS PRN 10 Days Proair Hfa (Albuterol Sulfate) 8.5 Gm Hfa.aer.ad 2.5 Mg NEB PRN Q4HRS PRN 30 Days Tizanidine Hcl 4 Mg Tablet 4 Mg PO PRN Q8HRS PRN Hydrocodone-Apap 5-325 (Hydrocodone Bit/Acetaminophen) 1 Each Tablet 1 Tab PO PRN Q4-6HRS PRN Reported Namenda (Memantine Hcl) 10 Mg Tablet 1 Tab PO BID Vitamin D3 (Cholecalciferol (Vitamin D3)) 1,000 Unit Tablet 1 Tab PO DAILY Donepezil Hcl 10 Mg Tablet 1 Tab PO DAILY Seroquel (Quetiapine Fumarate) 25 Mg Tablet 25 Mg PO BID Senokot (Sennosides) 8.6 Mg Tablet 1 Tab PO BID Aspir 81 (Aspirin) 81 Mg Tablet. 81 Mg PO DAILY08 Lisinopril 5 Mg Tablet 5 Mg PO HS Vitals/I & O Vital Sign - Last 24 Hours 06/23/19 06/23/19 06/23/19 06/23/19 09:42 11:00 11:05 15:02 Temp 97.8 97.8 Pulse 56 Resp 18 18 18 18 B/P (MAP) 129/63 (85) Pulse Ox 96 O2 Delivery Room Air Room Air Room Air Room Air 06/23/19 06/23/19 06/23/1906/23/19 16:27 19:00 20:30 21:06 Temp 97.3 97.3 Pulse 61 61 Resp 18 18 B/P (MAP) 104/66 (79) 104/66 Pulse Ox 94 O2 Delivery Room Air Room Air 06/23/19 06/24/19 06/24/19 06/24/19 23:00 03:00 03:52 05:00 Temp 97.5 97.4 97.5 97.4 Pulse 60 63 Resp 18 18 B/P (MAP) 107/59 (75) 107/68 (81) Pulse Ox 97 96 92 92 O2 Delivery Room Air Room Air Room Air Room Air 06/24/19 07:00 Temp 98.1 98.1 Pulse 50 Resp 16 B/P (MAP) 115/66 (82) Pulse Ox 97 O2 Delivery Room Air Intake and Output 06/23/19 06/23/19 06/24/19 15:00 23:00 07:00 Intake Total 210 ml Output Total 300 ml Balance -90 ml JASPREET HO MD Jun 24, 2019 09:42
--- NOTE | 2019-06-24 10:33 | PDOC ---
PROGRESS NOTES Chief Complaint Chief Complaint impression 0. CHF 1. Myalgia x mos, anterior thigh - sciatica, lumbar stenosis 2. Recent tx for sciatica, possible - s/.p short pred Bilateral total hip arthroplasties. Normal alignment. No fracture. Lower lumbar spondylosis. No perihardware lucency. 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 Lower lumbar spondylosis. ON MRI , severe spinal stenosis L3-4, other multilevel lateral recess stenosis greatest bilaterally at L4-5 and L2-3. Neural foramina compromise is greatest bilaterally at L3-4 and on the left at L4-5, lesser degree of narrowing on the right at L2-3 and bilaterally at L5-S1. 3. Dementia - good iadls - on meds 4. HTN - higher than usual, cont lisinopril 5, add prn clonidine 5. BPH - prev on flomax- request morgan, i will re start flomax, WOF orthostasis 6. HX left shoulder arthroplasty - as seen on CXR 7. SOA with recent pitting edema, BNP 1900- check echo, no signif edema current ly Anemia, macrocytic FULL CODE History of Present Illness History of Present Illness 06-23 MRI PELVIS PENDING MRI scan of lumbar vertebrae TRY 4 MG MORPHINE IM NOW BEFORE MRI 06-24, consult neurosurgery 30 MIN PT EXAM, CHART REVIEW > 50% OF TIME SPENT WITH EXAM, CHART REVIEW, PT CARE COORDINATION 06/20/2019 Pt seen and examined. Pt sitting in chair and conversant, breathing comfortably on room air. Pt not oriented to date. Doppler of lower extremities was negative for DVT. [id number] Patient seen and examined Discussed with RN I'm the consult cardiology because his BNP level is high We are also going to check lower extremity Dopplers to rule out DVT Vitals Vitals Vital Signs Date Time Temp Pulse Resp B/P (MAP) Pulse Ox O2 Delivery O2 Flow Rate FiO2 06/24/19 07:00 98.1 50 16 115/66 (82) 97 Room Air 98.1 Physical Exam General: Alert, Cooperative, No acute distress Heart: Regular rate Lungs: Clear, Crackles Abdomen: Normal bowel sounds, Soft Extremities: Other (1+ pitting pedal edema) Skin: No rashes, No breakdown, No significant lesion Labs LABS MRI Lumbar Spine without contrast History: Low back pain, right leg radiculopathy Technique: Multiplanar, multi sequential noncontrast MR imaging was performed of the lumbar spine. Comparison: None Findings: There is severe motion degradation. Lumbar vertebral body stature is overall maintained. There is grade 1 anterior spondylolisthesis L5-S1, to lesser degree at L4-5 and L3-4. Conus terminates near L1 although poorly distinguished on this motion degraded exam. There is nonspecific edema of the posterior subcutaneous fat of the lower back. There is moderate to severe degenerative disc disease at L3-4 and L4-5, to lesser degree at L2-3 and L5-S1. There is [id number] levoscoliosis centered near L2. There is likely at least mild left lateral subluxation L2 relative to L3 and L3 relative to L4. L1-L2: This level was not included on the axial images. Spinal canal is grossly patent. Neural foramina are not obviously narrowed. Appearance of heterogeneity in the thecal sac at the L1 level may be accentuated by motion degradation, although otherwise cannot accurately characterize. L2-L3: There is facet hypertrophic change and buckling of the ligamentum flavum. There is disc osteophyte complex. There is likely at least mild if not moderate lateral recess stenosis bilaterally although poorly characterized on this motion degraded exam. There may be moderate narrowing of the right neural foramen by disc osteophyte complex and facet, likely mild narrowing of the left although poorly characterized. L3-L4: There is facet hypertrophic change and buckling of the ligamentum flavum. There is posterior bulge. There is suspected severe spinal stenosis including lateral recess stenosis bilaterally with impingement of the descending L4 nerve roots. There is likely moderate to severe neural foramina compromise greater on the left. L4-L5: There is prominence of posterior epidural fat centrally. There is buckling of the ligamentum flavum and facet degenerative change. There is posterior bulge. There is likely moderate to severe lateral recess stenosis bilaterally and moderate narrowing of the central canal. There is probable moderate to severe narrowing of the left neural foramen, right neural foramen not significantly narrowed. L5-S1: There is bilateral facet hypertrophic change and mild buckling of the ligamentum flavum. There is likely mild narrowing of the far left lateral recess. There is [id number] right and likely moderate left neural foramina compromise. Impression: 1. Exam is degraded by significant motion. There is severe spinal stenosis L3-4, other multilevel lateral recess stenosis greatest bilaterally at L4-5 and L2-3. 2. There is suspected multilevel neural foramina compromise, although poorly characterized due to motion. Neural foramina compromise is greatest bilaterally at L3-4 and on the left at L4-5, lesser degree of narrowing on the right at L2-3 and bilaterally at L5-S1. 3. There is degenerative disc disease greatest at L3-4. 4. There is mild abnormal alignment as stated. There is lumbar levoscoliosis. Electronically signed by: Brianna Yip MD (06/23/2019 4:33 PM) [id number] DICTATED and SIGNED BY: BRIANNA YIP MD MRI Lumbar Spine without contrast History: Low back pain, right leg radiculopathy Technique: Multiplanar, multi sequential noncontrast MR imaging was performed of the lumbar spine. Comparison: None Findings: There is severe motion degradation. Lumbar vertebral body stature is overall maintained. There is grade 1 anterior spondylolisthesis L5-S1, to lesser degree at L4-5 and L3-4. Conus terminates near L1 although poorly distinguished on this motion degraded exam. There is nonspecific edema of the posterior subcutaneous fat of the lower back. There is moderate to severe degenerative disc disease at L3-4 and L4-5, to lesser degree at L2-3 and L5-S1. There is etdv-[id number] levoscoliosis centered near L2. There is likely at least mild left lateral subluxation L2 relative to L3 and L3 relative to L4. L1-L2: This level was not included on the axial images. Spinal canal is grossly patent. Neural foramina are not obviously narrowed. Appearance of heterogeneity in the thecal sac at the L1 level may be accentuated by motion degradation, although otherwise cannot accurately characterize. L2-L3: There is facet hypertrophic change and buckling of the ligamentum flavum. There is disc osteophyte complex. There is likely at least mild if not moderate lateral recess stenosis bilaterally although poorly characterized on this motion degraded exam. There may be moderate narrowing of the right neural foramen by disc osteophyte complex and facet, likely mild narrowing of the left although poorly characterized. L3-L4: There is facet hypertrophic change and buckling of the ligamentum flavum. There is posterior bulge. There is suspected severe spinal stenosis including lateral recess stenosis bilaterally with impingement of the descending L4 nerve roots. There is likely moderate to severe neural foramina compromise greater on the left. L4-L5: There is prominence of posterior epidural fat centrally. There is buckling of the ligamentum flavum and facet degenerative change. There is posterior bulge. There is likely moderate to severe lateral recess stenosis bilaterally and moderate narrowing of the central canal. There is probable moderate to severe narrowing of the left neural foramen, right neural foramen not significantly narrowed. L5-S1: There is bilateral facet hypertrophic change and mild buckling of the ligamentum flavum. There is likely mild narrowing of the far left lateral recess. There is [id number] right and likely moderate left neural foramina compromise. Impression: 1. Exam is degraded by significant motion. There is severe spinal stenosis L3-4, other multilevel lateral recess stenosis greatest bilaterally at L4-5 and L2-3. 2. There is suspected multilevel neural foramina compromise, although poorly characterized due to motion. Neural foramina compromise is greatest bilaterally at L3-4 and on the left at L4-5, lesser degree of narrowing on the right at L2-3 and bilaterally at L5-S1. 3. There is degenerative disc disease greatest at L3-4. 4. There is mild abnormal alignment as stated. There is lumbar levoscoliosis. Electronically signed by: Brianna Yip MD (06/23/2019 4:33 PM) [id number] DICTATED and SIGNED BY: BRIANNA YIP MD DATE: 06/23/19 1633 Laboratory Tests Test 06/23/19 13:42 06/24/19 03:35 Erythrocyte Sedimentation Rate 33 (0-15) White Blood Count 5.7 x10^3/uL (4.0-11.0) Red Blood Count 2.88 x10^6/uL (4.30-5.70) Hemoglobin 10.0 g/dL (13.0-17.5) Hematocrit 29.2 % (39.0-53.0) Mean Corpuscular Volume 101 fL (79-100) Mean Corpuscular Hemoglobin 35 pg (25-35) Mean Corpuscular Hemoglobin Concent 34 g/dL (31-37) Red Cell Distribution Width 16.0 % (11.5-14.5) Platelet Count 176 x10^3/uL (140-400) Neutrophils (%) (Auto) 49 % (31-73) Lymphocytes (%) (Auto) 37 % (24-48) Monocytes (%) (Auto) 9 % (0-9) Eosinophils (%) (Auto) 4 % (0-3) Basophils (%) (Auto) 1 % (0-3) Neutrophils # (Auto) 2.8 x10^3/uL (1.8-7.7) Lymphocytes # (Auto) 2.1 x10^3/uL (1.0-4.8) Monocytes # (Auto) 0.5 x10^3/uL (0.0-1.1) Eosinophils # (Auto) 0.2 x10^3/uL (0.0-0.7) Basophils # (Auto) 0.1 x10^3/uL (0.0-0.2) Sodium Level 141 mmol/L (136-145) Potassium Level 4.2 mmol/L (3.5-5.1) Chloride Level 103 mmol/L (98-107) Carbon Dioxide Level 29 mmol/L (21-32) Anion Gap 9 (6-14) Blood Urea Nitrogen 35 mg/dL (8-26) Creatinine 1.4 mg/dL (0.7-1.3) Estimated GFR (Cockcroft-Gault) 47.9 BUN/Creatinine Ratio 25 (6-20) Glucose Level 98 mg/dL (70-99) Calcium Level 8.9 mg/dL (8.5-10.1) Total Bilirubin 0.5 mg/dL (0.2-1.0) Aspartate Amino Transf (AST/SGOT) 15 U/L (15-37) Alanine Aminotransferase (ALT/SGPT) 14 U/L (16-63) Alkaline Phosphatase 46 U/L (46-116) Total Protein 7.1 g/dL (6.4-8.2) Albumin 3.8 g/dL (3.4-5.0) Albumin/Globulin Ratio 1.2 (1.0-1.7) Assessment and Plan Assessmemt and Plan Problems Medical Problems: (1) Short of breath on exertion Status: Acute Comment Review of Relevant I have reviewed the following items get (where applicable) has been applied. Labs Laboratory Tests Test 06/23/19 04:00 06/23/19 13:42 06/24/19 03:35 White Blood Count 6.2 x10^3/uL (4.0-11.0) 5.7 x10^3/uL (4.0-11.0) Red Blood Count 2.79 x10^6/uL (4.30-5.70) 2.88 x10^6/uL (4.30-5.70) Hemoglobin 9.7 g/dL (13.0-17.5) 10.0 g/dL (13.0-17.5) Hematocrit 28.4 % (39.0-53.0) 29.2 % (39.0-53.0) Mean Corpuscular Volume 102 fL (79-100) 101 fL (79-100) Mean Corpuscular Hemoglobin 35 pg (25-35) 35 pg (25-35) Mean Corpuscular Hemoglobin Concent 34 g/dL (31-37) 34 g/dL (31-37) Red Cell Distribution Width 15.8 % (11.5-14.5) 16.0 % (11.5-14.5) Platelet Count 157 x10^3/uL (140-400) 176 x10^3/uL (140-400) Neutrophils (%) (Auto) 50 % (31-73) 49 % (31-73) Lymphocytes (%) (Auto) 35 % (24-48) 37 % (24-48) Monocytes (%) (Auto) 11 % (0-9) 9 % (0-9) Eosinophils (%) (Auto) 3 % (0-3) 4 % (0-3) Basophils (%) (Auto) 1 % (0-3) 1 % (0-3) Neutrophils # (Auto) 3.1 x10^3/uL (1.8-7.7) 2.8 x10^3/uL (1.8-7.7) Lymphocytes # (Auto) 2.2 x10^3/uL (1.0-4.8) 2.1 x10^3/uL (1.0-4.8) Monocytes # (Auto) 0.7 x10^3/uL (0.0-1.1) 0.5 x10^3/uL (0.0-1.1) Eosinophils # (Auto) 0.2 x10^3/uL (0.0-0.7) 0.2 x10^3/uL (0.0-0.7) Basophils # (Auto) 0.1 x10^3/uL (0.0-0.2) 0.1 x10^3/uL (0.0-0.2) Sodium Level 143 mmol/L (136-145) 141 mmol/L (136-145) Potassium Level 4.1 mmol/L (3.5-5.1) 4.2 mmol/L (3.5-5.1) Chloride Level 105 mmol/L (98-107) 103 mmol/L (98-107) Carbon Dioxide Level 29 mmol/L (21-32) 29 mmol/L (21-32) Anion Gap 9 (6-14) 9 (6-14) Blood Urea Nitrogen 38 mg/dL (8-26) 35 mg/dL (8-26) Creatinine 1.7 mg/dL (0.7-1.3) 1.4 mg/dL (0.7-1.3) Estimated GFR (Cockcroft-Gault) 38.3 47.9 BUN/Creatinine Ratio 22 (6-20) 25 (6-20) Glucose Level 89 mg/dL (70-99) 98 mg/dL (70-99) Calcium Level 9.0 mg/dL (8.5-10.1) 8.9 mg/dL (8.5-10.1) Total Bilirubin 0.5 mg/dL (0.2-1.0) 0.5 mg/dL (0.2-1.0) Aspartate Amino Transf (AST/SGOT) 14 U/L (15-37) 15 U/L (15-37) Alanine Aminotransferase (ALT/SGPT) 13 U/L (16-63) 14 U/L (16-63) Alkaline Phosphatase 45 U/L (46-116) 46 U/L (46-116) Total Protein 6.9 g/dL (6.4-8.2) 7.1 g/dL (6.4-8.2) Albumin 3.7 g/dL (3.4-5.0) 3.8 g/dL (3.4-5.0) Albumin/Globulin Ratio 1.2 (1.0-1.7) 1.2 (1.0-1.7) Erythrocyte Sedimentation Rate 33 (0-15) Laboratory Tests Test 06/23/19 13:42 06/24/19 03:35 Erythrocyte Sedimentation Rate 33 (0-15) White Blood Count 5.7 x10^3/uL (4.0-11.0) Red Blood Count 2.88 x10^6/uL (4.30-5.70) Hemoglobin 10.0 g/dL (13.0-17.5) Hematocrit 29.2 % (39.0-53.0) Mean Corpuscular Volume 101 fL (79-100) Mean Corpuscular Hemoglobin 35 pg (25-35) Mean Corpuscular Hemoglobin Concent 34 g/dL (31-37) Red Cell Distribution Width 16.0 % (11.5-14.5) Platelet Count 176 x10^3/uL (140-400) Neutrophils (%) (Auto) 49 % (31-73) Lymphocytes (%) (Auto) 37 % (24-48) Monocytes (%) (Auto) 9 % (0-9) Eosinophils (%) (Auto) 4 % (0-3) Basophils (%) (Auto) 1 % (0-3) Neutrophils # (Auto) 2.8 x10^3/uL (1.8-7.7) Lymphocytes # (Auto) 2.1 x10^3/uL (1.0-4.8) Monocytes # (Auto) 0.5 x10^3/uL (0.0-1.1) Eosinophils # (Auto) 0.2 x10^3/uL (0.0-0.7) Basophils # (Auto) 0.1 x10^3/uL (0.0-0.2) Sodium Level 141 mmol/L (136-145) Potassium Level 4.2 mmol/L (3.5-5.1) Chloride Level 103 mmol/L (98-107) Carbon Dioxide Level 29 mmol/L (21-32) Anion Gap 9 (6-14) Blood Urea Nitrogen 35 mg/dL (8-26) Creatinine 1.4 mg/dL (0.7-1.3) Estimated GFR (Cockcroft-Gault) 47.9 BUN/Creatinine Ratio 25 (6-20) Glucose Level 98 mg/dL (70-99) Calcium Level 8.9 mg/dL (8.5-10.1) Total Bilirubin 0.5 mg/dL (0.2-1.0) Aspartate Amino Transf (AST/SGOT) 15 U/L (15-37) Alanine Aminotransferase (ALT/SGPT) 14 U/L (16-63) Alkaline Phosphatase 46 U/L (46-116) Total Protein 7.1 g/dL (6.4-8.2) Albumin 3.8 g/dL (3.4-5.0) Albumin/Globulin Ratio 1.2 (1.0-1.7) Medications Current Medications Aspirin (Ecotrin) 81 mg DAILY08 PO Last administered on 06/24/19at 09:09; Start 06/19/19 at 08:00 Acetaminophen/ Hydrocodone Bitart (Lortab 5/325) 1 tab PRN QID PRN PO PAIN; Start 06/18/19 at 15:00; Stop 06/18/19 at 15:10; Status DC Lisinopril (Prinivil) 5 mg HS PO Last administered on 06/21/19at 21:24; Start 06/18/19 at 21:00; Stop 06/22/19 at 08:16; Status DC Sennosides (Senna) 8.6 mg BID PO Last administered on 06/24/19at 09:09; Start 06/18/19 at 21:00 Tamsulosin HCl (Flomax) 0.4 mg DAILY PO ; Start 06/19/19 at 09:00; Stop 06/18/19 at 20:00; Status DC Calcium Carbonate/ Glycine (Tums) 500 mg PRN AFTMEALHC PRN PO INDIGESTION; Start 06/18/19 at 15:00 Ondansetron HCl (Zofran) 4 mg PRN Q6HRS PRN IVP NAUSEA/VOMITING; Start 06/18/19 at 15:00 Temazepam (Restoril) 7.5 mg PRN QHS PRN PO INSOMNIA; Start 06/18/19 at 15:00 Clonidine HCl (Catapres) 0.1 mg PRN Q1HR PRN PO HYPERTENSION; Start 06/18/19 at 15:00 Albuterol Sulfate (Ventolin Neb Soln) 2.5 mg PRN Q4HRS PRN NEB SHORTNESS OF BREATH Last administered on 06/21/19at 15:50; Start 06/18/19 at 15:00 Guaifenesin/ Codeine Phosphate (Robitussin Ac) 5 ml PRN Q6HRS PRN PO COUGH; Start 06/18/19 at 15:00 Acetaminophen/ Hydrocodone Bitart (Lortab 5/325) 1 tab PRN Q4HRS PRN PO PAIN Last administered on 06/19/19 08:51; Start 06/18/19 at 15:00; Stop 06/19/19 at 10:33; Status DC Sodium Chloride 1,000 ml @ 75 mls/hr 1X ONCE IV Last administered on 06/18/19 20:26; Start 06/18/19 at 15:00; Stop 06/19/19 at 04:19; Status DC Memantine (Namenda) 10 mg BID PO Last administered on 06/24/19 09:09; Start 06/18/19 at 21:00 Donepezil HCl (Aricept) 5 mg DAILY PO Last administered on 06/24/19 09:09; Start 06/19/19 at 09:00 Multivitamins (Thera M Plus) 1 tab DAILY PO Last administered on 06/24/19 09:09; Start 06/19/19 at 09:00 Vitamin B Complex (Folbic Tablet) 1 tab DAILY PO Last administered on 06/24/19 09:09; Start 06/19/19 at 09:00 Quetiapine Fumarate (SEROquel) 25 mg BID PO Last administered on 06/24/19 09:09; Start 06/18/19 at 21:00 Vitamin D (Vitamin D3) 1,000 unit DAILY PO Last administered on 06/24/19 09:09; Start 06/19/19 at 09:00 Prednisone (Prednisone) 10 mg DAILY PO Last administered on 06/24/19 09:09; Start 06/19/19 at 10:30 Pantoprazole Sodium (Protonix) 40 mg DAILYAC PO Last administered on 06/24/19 09:08; Start 06/19/19 at 10:30 Tizanidine HCl (Zanaflex) 4 mg PRN Q8HRS PRN PO MUSCLE SPASMS Last administered on 06/20/19at 10:04; Start 06/19/19 at 10:30 Acetaminophen/ Hydrocodone Bitart (Lortab 10/325) 1 tab PRN Q6HRS PRN PO MODERATE PAIN Last administered on 06/24/19at 03:52; Start 06/19/19 at 10:30 Oxycodone/ Acetaminophen (Percocet 10/325) 1 tab PRN Q4HRS PRN PO SEVERE PAIN Last administered on 06/23/19at 00:37; Start 06/20/19 at 12:30 Polysaccharide Iron Complex (Niferex 150) 150 mg BID PO Last administered on 06/24/19at 09:08; Start 06/21/19 at 21:00 Lisinopril (Prinivil) 10 mg QHS PO Last administered on 06/23/19at 21:06; Start 06/22/19 at 21:00 Methylprednisolone Acetate (DEPO-Medrol 40MG VIAL) 40 mg 1X ONCE IM ; Start 06/23/19 at 13:00; Stop 06/23/19 at 13:01; Status DC Bupivacaine HCl (Sensorcaine-Mpf 0.25%) 10 ml 1X ONCE IJ ; Start 06/23/19 at 13:00; Stop 06/23/19 at 13:01; Status DC Diazepam (Valium) 5 mg OC PROC PRN PO PRE -MRI X1 Last administered on 06/23/19at 14:16; Start 06/23/19 at 13:15; Stop 06/24/19 at 13:14 Morphine Sulfate (Morphine Sulfate) 4 mg OC PROC PRN IM PRE-MRI X1 Last administered on 06/23/19at 15:02; Start 06/23/19 at 13:00; Stop 06/24/19 at 12:59 Active Scripts Active Lisinopril 10 Mg Tablet 1 Tab PO DAILY Thera-M Tablet (Multivits,Ca,Minerals/Iron/Fa) 1 Each Tablet 1 Tab PO DAILY Folbic Tablet (Cyanocobalamin/Fa/Pyridoxine) 1 Each Tablet 1 Tab PO DAILY Prednisone (Prednisone) 10 Mg Tablet 10 Mg PO DAILY 4 Days [guaiFENesin/CODEINE 100mg/10mg] 5 ML Liquid 5 Ml PO PRN Q6HRS PRN 10 Days Proair Hfa (Albuterol Sulfate) 8.5 Gm Hfa.aer.ad 2.5 Mg NEB PRN Q4HRS PRN 30 Days Tizanidine Hcl 4 Mg Tablet 4 Mg PO PRN Q8HRS PRN Hydrocodone-Apap 5-325 (Hydrocodone Bit/Acetaminophen) 1 Each Tablet 1 Tab PO PRN Q4-6HRS PRN Reported Namenda (Memantine Hcl) 10 Mg Tablet 1 Tab PO BID Vitamin D3 (Cholecalciferol (Vitamin D3)) 1,000 Unit Tablet 1 Tab PO DAILY Donepezil Hcl 10 Mg Tablet 1 Tab PO DAILY Seroquel (Quetiapine Fumarate) 25 Mg Tablet 25 Mg PO BID Senokot (Sennosides) 8.6 Mg Tablet 1 Tab PO BID Aspir 81 (Aspirin) 81 Mg Tablet.dr 81 Mg PO DAILY08 Lisinopril 5 Mg Tablet 5 Mg PO HS Vitals/I & O Vital Sign - Last 24 Hours 06/23/19 06/23/19 06/23/19 06/23/19 11:00 11:05 15:02 16:27 Temp 97.8 97.8 Pulse 56 Resp 18 18 18 18 B/P (MAP) 129/63 (85) Pulse Ox 96 O2 Delivery Room Air Room Air Room Air 06/23/19 06/23/19 06/23/19 06/23/19 19:00 20:30 21:06 23:00 Temp 97.3 97.5 97.3 97.5 Pulse 61 61 60 Resp 18 18 B/P (MAP) 104/66 (79) 104/66 107/59 (75) Pulse Ox 94 97 O2 Delivery Room Air Room Air Room Air 06/24/19 06/24/19 06/24/19 06/24/19 03:00 03:52 05:00 07:00 Temp 97.4 98.1 97.4 98.1 Pulse 63 50 Resp 18 16 B/P (MAP) 107/68 (81) 115/66 (82) Pulse Ox 96 92 92 97 O2 Delivery Room Air Room Air Room Air Room Air Intake and Output 06/23/19 06/23/19 06/24/19 15:00 23:00 07:00 Intake Total 210 ml Output Total 300 ml Balance -90 ml MARTITA DAVIS MD Jun 24, 2019 10:33
[2019-06-24 11:00] VITALS: BP 106/55
[2019-06-24] MEDS: oxyCODONE/APAP 10/325 1 TAB TABLET PO PRN ×2 (14:03→20:50)
[2019-06-24 15:00] VITALS: BP 104/53
[2019-06-24 19:25] VITALS: BP 99/51
[2019-06-24] MEDS: tiZANidine 4 MG TABLET. PO PRN (20:49)
[2019-06-24] MEDS: LISINOPRIL 10 MG TABLET PO SCH (20:55)
[2019-06-24 23:59] VITALS: BP 115/50
[2019-06-25 03:54] VITALS: BP 155/60
[2019-06-25] MEDS: oxyCODONE/APAP 10/325 1 TAB TABLET PO PRN ×2 (04:09→08:43)
[2019-06-25 06:49] LABS: BASO # 0.1 x10^3/uL (0.0-0.2); BASO % 1 % (0-3); EOS # 0.2 x10^3/uL (0.0-0.7); EOS % 4 % (0-3); HEMATOCRIT 29.1 % (39.0-53.0); HEMOGLOBIN 9.8 g/dL (13.0-17.5); LYMPH % 35 % (24-48); MEAN CORPUSCULAR HEMOGLOBIN 35 pg (25-35); MEAN CORPUSCULAR HGB CONC 34 g/dL (31-37); MEAN CORPUSCULAR VOLUME 102 fL (79-100); MONO # 0.6 x10^3/uL (0.0-1.1); MONO % 10 % (0-9); NEUT # 2.8 x10^3/uL (1.8-7.7); NEUT % 50 % (31-73); PLATELET COUNT 177 x10^3/uL (140-400); RED BLOOD COUNT 2.85 x10^6/uL (4.30-5.70); RED CELL DISTRIBUTION WIDTH 15.4 % (11.5-14.5); WHITE BLOOD COUNT 5.5 x10^3/uL (4.0-11.0)
[2019-06-25 07:00] VITALS: BP 104/71
[2019-06-25] MEDS: PANTOPRAZOLE 40 MG TABLET.DR. PO SCH (07:10)
[2019-06-25 07:17] LABS: ALBUMIN 3.8 g/dL (3.4-5.0); ALBUMIN/GLOBULIN RATIO 1.1 (1.0-1.7); CALCIUM 9.2 mg/dL (8.5-10.1); CREATININE 1.6 mg/dL (0.7-1.3); GFR 41.1; POTASSIUM 4.3 mmol/L (3.5-5.1); TOTAL BILIRUBIN 0.5 mg/dL (0.2-1.0); TOTAL PROTEIN 7.2 g/dL (6.4-8.2)
[2019-06-25] MEDS: DONEPEZIL HCL 5 MG TABLET. PO SCH (08:43)
[2019-06-25] MEDS: predniSONE 10 MG TABLET PO SCH (08:43)
[2019-06-25] MEDS: MULTIVITAMIN with MINERAL TABLET. PO SCH (08:43)
[2019-06-25] MEDS: SENNOSIDES 8.6 MG TABLET PO SCH ×2 (08:43→22:28)
[2019-06-25] MEDS: QUEtiapine 25 MG TABLET. PO SCH ×2 (08:43→22:28)
[2019-06-25] MEDS: CHOLECALCIFEROL (VITAMIN D3) 1,000 UNIT TABLET PO SCH (08:43)
[2019-06-25] MEDS: VITAMIN B12,B9,B6 COMPLEX 1 TABLET. PO SCH (08:43)
[2019-06-25] MEDS: MEMANTINE 10 MG TABLET. PO SCH ×2 (08:43→22:29)
[2019-06-25] MEDS: ASPIRIN ENTERIC COATED 81 MG TABLET.DR. PO SCH (08:43)
[2019-06-25] MEDS: IRON POLYSACCHARIDE COMPLEX 150 MG CAPSULE PO SCH ×2 (08:45→22:29)
--- NOTE | 2019-06-25 10:07 | PDOC ---
PROGRESS NOTES Chief Complaint Chief Complaint 1. Myalgia x mos, anterior thigh - sciatica, lumbar stenosis 2. Recent tx for sciatica, possible - s/.p short pred Bilateral total hip arthroplasties. Normal alignment. No fracture. Lower lumbar spondylosis. No perihardware lucency. 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 Lower lumbar spondylosis. ON MRI , severe spinal stenosis L3-4, other multilevel lateral recess stenosis greatest bilaterally at L4-5 and L2-3. Neural foramina compromise is greatest bilaterally at L3-4 and on the left at L4-5, lesser degree of narrowing on the right at L2-3 and bilaterally at L5-S1. 3. Dementia - good iadls - on meds 4. HTN - with chronic diastolic CHF 5. BPH - prev on flomax- request cathy, i will re start flomax, WOF orthostasis 6. HX left shoulder arthroplasty - as seen on CXR 7. SOA with recent pitting edema, BNP 1900- check echo, no signif edema currently Anemia, macrocytic FULL CODE History of Present Illness History of Present Illness 06/25, needs neuro surg, injection not helping, was independent before, now cannot walk, pain is limiting, MRI showed stenosis Vitals Vitals Vital Signs Date Time Temp Pulse Resp B/P (MAP) Pulse Ox O2 Delivery O2 Flow Rate FiO2 06/25/19 09:53 98 Room Air 06/25/19 07:00 97.4 59 18 104/71 (82) 97.4 Physical Exam General: Alert, Cooperative, No acute distress Heart: Regular rate Lungs: Clear, Crackles Abdomen: Normal bowel sounds, Soft Extremities: Other (1+ pitting pedal edema) Skin: No rashes, No breakdown, No significant lesion Labs LABS Laboratory Tests Test 06/25/19 05:47 White Blood Count 5.5 x10^3/uL (4.0-11.0) Red Blood Count 2.85 x10^6/uL (4.30-5.70) Hemoglobin 9.8 g/dL (13.0-17.5) Hematocrit 29.1 % (39.0-53.0) Mean Corpuscular Volume 102 fL (79-100) Mean Corpuscular Hemoglobin 35 pg (25-35) Mean Corpuscular Hemoglobin Concent 34 g/dL (31-37) Red Cell Distribution Width 15.4 % (11.5-14.5) Platelet Count 177 x10^3/uL (140-400) Neutrophils (%) (Auto) 50 % (31-73) Lymphocytes (%) (Auto) 35 % (24-48) Monocytes (%) (Auto) 10 % (0-9) Eosinophils (%) (Auto) 4 % (0-3) Basophils (%) (Auto) 1 % (0-3) Neutrophils # (Auto) 2.8 x10^3/uL (1.8-7.7) Lymphocytes # (Auto) 2.0 x10^3/uL (1.0-4.8) Monocytes # (Auto) 0.6 x10^3/uL (0.0-1.1) Eosinophils # (Auto) 0.2 x10^3/uL (0.0-0.7) Basophils # (Auto) 0.1 x10^3/uL (0.0-0.2) Sodium Level 141 mmol/L (136-145) Potassium Level 4.3 mmol/L (3.5-5.1) Chloride Level 104 mmol/L (98-107) Carbon Dioxide Level 30 mmol/L (21-32) Anion Gap 7 (6-14) Blood Urea Nitrogen 41 mg/dL (8-26) Creatinine 1.6 mg/dL (0.7-1.3) Estimated GFR (Cockcroft-Gault) 41.1 BUN/Creatinine Ratio 26 (6-20) Glucose Level 103 mg/dL (70-99) Calcium Level 9.2 mg/dL (8.5-10.1) Total Bilirubin 0.5 mg/dL (0.2-1.0) Aspartate Amino Transf (AST/SGOT) 13 U/L (15-37) Alanine Aminotransferase (ALT/SGPT) 17 U/L (16-63) Alkaline Phosphatase 45 U/L (46-116) Total Protein 7.2 g/dL (6.4-8.2) Albumin 3.8 g/dL (3.4-5.0) Albumin/Globulin Ratio 1.1 (1.0-1.7) Assessment and Plan Assessmemt and Plan Problems Medical Problems: (1) Short of breath on exertion Status: Acute Comment Review of Relevant I have reviewed the following items get (where applicable) has been applied. Labs Laboratory Tests Test 06/23/19 13:42 06/24/19 03:35 06/25/19 05:47 Erythrocyte Sedimentation Rate 33 (0-15) White Blood Count 5.7 x10^3/uL (4.0-11.0) 5.5 x10^3/uL (4.0-11.0) Red Blood Count 2.88 x10^6/uL (4.30-5.70) 2.85 x10^6/uL (4.30-5.70) Hemoglobin 10.0 g/dL (13.0-17.5) 9.8 g/dL (13.0-17.5) Hematocrit 29.2 % (39.0-53.0) 29.1 % (39.0-53.0) Mean Corpuscular Volume 101 fL (79-100) 102 fL (79-100) Mean Corpuscular Hemoglobin 35 pg (25-35) 35 pg (25-35) Mean Corpuscular Hemoglobin Concent 34 g/dL (31-37) 34 g/dL (31-37) Red Cell Distribution Width 16.0 % (11.5-14.5) 15.4 % (11.5-14.5) Platelet Count 176 x10^3/uL (140-400) 177 x10^3/uL (140-400) Neutrophils (%) (Auto) 49 % (31-73) 50 % (31-73) Lymphocytes (%) (Auto) 37 % (24-48) 35 % (24-48) Monocytes (%) (Auto) 9 % (0-9) 10 % (0-9) Eosinophils (%) (Auto) 4 % (0-3) 4 % (0-3) Basophils (%) (Auto) 1 % (0-3) 1 % (0-3) Neutrophils # (Auto) 2.8 x10^3/uL (1.8-7.7) 2.8 x10^3/uL (1.8-7.7) Lymphocytes # (Auto) 2.1 x10^3/uL (1.0-4.8) 2.0 x10^3/uL (1.0-4.8) Monocytes # (Auto) 0.5 x10^3/uL (0.0-1.1) 0.6 x10^3/uL (0.0-1.1) Eosinophils # (Auto) 0.2 x10^3/uL (0.0-0.7) 0.2 x10^3/uL (0.0-0.7) Basophils # (Auto) 0.1 x10^3/uL (0.0-0.2) 0.1 x10^3/uL (0.0-0.2) Sodium Level 141 mmol/L (136-145) 141 mmol/L (136-145) Potassium Level 4.2 mmol/L (3.5-5.1) 4.3 mmol/L (3.5-5.1) Chloride Level 103 mmol/L (98-107) 104 mmol/L (98-107) Carbon Dioxide Level 29 mmol/L (21-32) 30 mmol/L (21-32) Anion Gap 9 (6-14) 7 (6-14) Blood Urea Nitrogen 35 mg/dL (8-26) 41 mg/dL (8-26) Creatinine 1.4 mg/dL (0.7-1.3) 1.6 mg/dL (0.7-1.3) Estimated GFR (Cockcroft-Gault) 47.9 41.1 BUN/Creatinine Ratio 25 (6-20) 26 (6-20) Glucose Level 98 mg/dL (70-99) 103 mg/dL (70-99) Calcium Level 8.9 mg/dL (8.5-10.1) 9.2 mg/dL (8.5-10.1) Total Bilirubin 0.5 mg/dL (0.2-1.0) 0.5 mg/dL (0.2-1.0) Aspartate Amino Transf (AST/SGOT) 15 U/L (15-37) 13 U/L (15-37) Alanine Aminotransferase (ALT/SGPT) 14 U/L (16-63) 17 U/L (16-63) Alkaline Phosphatase 46 U/L (46-116) 45 U/L (46-116) Total Protein 7.1 g/dL (6.4-8.2) 7.2 g/dL (6.4-8.2) Albumin 3.8 g/dL (3.4-5.0) 3.8 g/dL (3.4-5.0) Albumin/Globulin Ratio 1.2 (1.0-1.7) 1.1 (1.0-1.7) Laboratory Tests Test 06/25/19 05:47 White Blood Count 5.5 x10^3/uL (4.0-11.0) Red Blood Count 2.85 x10^6/uL (4.30-5.70) Hemoglobin 9.8 g/dL (13.0-17.5) Hematocrit 29.1 % (39.0-53.0) Mean Corpuscular Volume 102 fL (79-100) Mean Corpuscular Hemoglobin 35 pg (25-35) Mean Corpuscular Hemoglobin Concent 34 g/dL (31-37) Red Cell Distribution Width 15.4 % (11.5-14.5) Platelet Count 177 x10^3/uL (140-400) Neutrophils (%) (Auto) 50 % (31-73) Lymphocytes (%) (Auto) 35 % (24-48) Monocytes (%) (Auto) 10 % (0-9) Eosinophils (%) (Auto) 4 % (0-3) Basophils (%) (Auto) 1 % (0-3) Neutrophils # (Auto) 2.8 x10^3/uL (1.8-7.7) Lymphocytes # (Auto) 2.0 x10^3/uL (1.0-4.8) Monocytes # (Auto) 0.6 x10^3/uL (0.0-1.1) Eosinophils # (Auto) 0.2 x10^3/uL (0.0-0.7) Basophils # (Auto) 0.1 x10^3/uL (0.0-0.2) Sodium Level 141 mmol/L (136-145) Potassium Level 4.3 mmol/L (3.5-5.1) Chloride Level 104 mmol/L (98-107) Carbon Dioxide Level 30 mmol/L (21-32) Anion Gap 7 (6-14) Blood Urea Nitrogen 41 mg/dL (8-26) Creatinine 1.6 mg/dL (0.7-1.3) Estimated GFR (Cockcroft-Gault) 41.1 BUN/Creatinine Ratio 26 (6-20) Glucose Level 103 mg/dL (70-99) Calcium Level 9.2 mg/dL (8.5-10.1) Total Bilirubin 0.5 mg/dL (0.2-1.0) Aspartate Amino Transf (AST/SGOT) 13 U/L (15-37) Alanine Aminotransferase (ALT/SGPT) 17 U/L (16-63) Alkaline Phosphatase 45 U/L (46-116) Total Protein 7.2 g/dL (6.4-8.2) Albumin 3.8 g/dL (3.4-5.0) Albumin/Globulin Ratio 1.1 (1.0-1.7) Medications Current Medications Aspirin (Ecotrin) 81 mg DAILY08 PO Last administered on 06/25/19at 08:43; Start 06/19/19 at 08:00 Acetaminophen/ Hydrocodone Bitart (Lortab 5/325) 1 tab PRN QID PRN PO PAIN; Start 06/18/19 at 15:00; Stop 06/18/19 at 15:10; Status DC Lisinopril (Prinivil) 5 mg HS PO Last administered on 06/21/19at 21:24; Start 06/18/19 at 21:00; Stop 06/22/19 at 08:16; Status DC Sennosides (Senna) 8.6 mg BID PO Last administered on 06/25/19at 08:43; Start 06/18/19 at 21:00 Tamsulosin HCl (Flomax) 0.4 mg DAILY PO ; Start 06/19/19 at 09:00; Stop 06/18/19 at 20:00; Status DC Calcium Carbonate/ Glycine (Tums) 500 mg PRN AFTMEALHC PRN PO INDIGESTION; Start 06/18/19 at 15:00 Ondansetron HCl (Zofran) 4 mg PRN Q6HRS PRN IVP NAUSEA/VOMITING; Start 06/18/19 at 15:00 Temazepam (Restoril) 7.5 mg PRN QHS PRN PO INSOMNIA; Start 06/18/19 at 15:00 Clonidine HCl (Catapres) 0.1 mg PRN Q1HR PRN PO HYPERTENSION; Start 06/18/19 at 15:00 Albuterol Sulfate (Ventolin Neb Soln) 2.5 mg PRN Q4HRS PRN NEB SHORTNESS OF BREATH Last administered on 06/21/19 15:50; Start 06/18/19 at 15:00 Guaifenesin/ Codeine Phosphate (Robitussin Ac) 5 ml PRN Q6HRS PRN PO COUGH; Start 06/18/19 at 15:00 Acetaminophen/ Hydrocodone Bitart (Lortab 5/325) 1 tab PRN Q4HRS PRN PO PAIN Last administered on 06/19/19 08:51; Start 06/18/19 at 15:00; Stop 06/19/19 at 10:33; Status DC Sodium Chloride 1,000 ml @ 75 mls/hr 1X ONCE IV Last administered on 06/18/19 20:26; Start 06/18/19 at 15:00; Stop 06/19/19 at 04:19; Status DC Memantine (Namenda) 10 mg BID PO Last administered on 06/25/19 08:43; Start 06/18/19 at 21:00 Donepezil HCl (Aricept) 5 mg DAILY PO Last administered on 06/25/19 08:43; Start 06/19/19 at 09:00 Multivitamins (Thera M Plus) 1 tab DAILY PO Last administered on 06/25/19 08:43; Start 06/19/19 at 09:00 Vitamin B Complex (Folbic Tablet) 1 tab DAILY PO Last administered on 06/25/19 08:43; Start 06/19/19 at 09:00 Quetiapine Fumarate (SEROquel) 25 mg BID PO Last administered on 06/25/19 08:43; Start 06/18/19 at 21:00 Vitamin D (Vitamin D3) 1,000 unit DAILY PO Last administered on 06/25/19 08:43; Start 06/19/19 at 09:00 Prednisone (Prednisone) 10 mg DAILY PO Last administered on 06/25/19 08:43; Start 06/19/19 at 10:30 Pantoprazole Sodium (Protonix) 40 mg DAILYAC PO Last administered on 06/25/19 07:10; Start 06/19/19 at 10:30 Tizanidine HCl (Zanaflex) 4 mg PRN Q8HRS PRN PO MUSCLE SPASMS Last administered on 10/31/19at 20:49; Start 06/19/19 at 10:30 Acetaminophen/ Hydrocodone Bitart (Lortab 10/325) 1 tab PRN Q6HRS PRN PO MODERATE PAIN Last administered on 06/24/19at 03:52; Start 06/19/19 at 10:30 Oxycodone/ Acetaminophen (Percocet 10/325) 1 tab PRN Q4HRS PRN PO SEVERE PAIN Last administered on 06/25/19 08:43; Start 06/20/19 at 12:30 Polysaccharide Iron Complex (Niferex 150) 150 mg BID PO Last administered on 06/25/19 08:45; Start 06/21/19 at 21:00 Lisinopril (Prinivil) 10 mg QHS PO Last administered on 06/24/19at 20:55; Start 06/22/19 at 21:00 Methylprednisolone Acetate (DEPO-Medrol 40MG VIAL) 40 mg 1X ONCE IM ; Start 06/23/19 at 13:00; Stop 06/23/19 at 13:01; Status DC Bupivacaine HCl (Sensorcaine-Mpf 0.25%) 10 ml 1X ONCE IJ ; Start 06/23/19 at 13:00; Stop 06/23/19 at 13:01; Status DC Diazepam (Valium) 5 mg OC PROC PRN PO PRE -MRI X1 Last administered on 06/23/19at 14:16; Start 06/23/19 at 13:15; Stop 06/24/19 at 13:14; Status DC Morphine Sulfate (Morphine Sulfate) 4 mg OC PROC PRN IM PRE-MRI X1 Last administered on 06/23/19at 15:02; Start 06/23/19 at 13:00; Stop 06/24/19 at 12:59; Status DC Active Scripts Active Lisinopril 10 Mg Tablet 1 Tab PO DAILY Thera-M Tablet (Multivits,Ca,Minerals/Iron/Fa) 1 Each Tablet 1 Tab PO DAILY Folbic Tablet (Cyanocobalamin/Fa/Pyridoxine) 1 Each Tablet 1 Tab PO DAILY Prednisone (Prednisone) 10 Mg Tablet 10 Mg PO DAILY 4 Days [guaiFENesin/CODEINE 100mg/10mg] 5 ML Liquid 5 Ml PO PRN Q6HRS PRN 10 Days Proair Hfa (Albuterol Sulfate) 8.5 Gm Hfa.aer.ad 2.5 Mg NEB PRN Q4HRS PRN 30 Days Tizanidine Hcl 4 Mg Tablet 4 Mg PO PRN Q8HRS PRN Hydrocodone-Apap 5-325 (Hydrocodone Bit/Acetaminophen) 1 Each Tablet 1 Tab PO PRN Q4-6HRS PRN Reported Namenda (Memantine Hcl) 10 Mg Tablet 1 Tab PO BID Vitamin D3 (Cholecalciferol (Vitamin D3)) 1,000 Unit Tablet 1 Tab PO DAILY Donepezil Hcl 10 Mg Tablet 1 Tab PO DAILY Seroquel (Quetiapine Fumarate) 25 Mg Tablet 25 Mg PO BID Senokot (Sennosides) 8.6 Mg Tablet 1 Tab PO BID Aspir 81 (Aspirin) 81 Mg Tablet.dr 81 Mg PO DAILY08 Lisinopril 5 Mg Tablet 5 Mg PO HS Vitals/I & O Vital Sign - Last 24 Hours 06/24/19 06/24/19 06/24/19 06/24/19 11:00 14:03 15:00 15:09 Temp 98.1 98.0 98.1 98.0 Pulse 62 62 Resp 16 16 16 16 B/P (MAP) 106/55 (72) 104/53 (70) Pulse Ox 95 96 O2 Delivery Room Air Room Air Room Air Room Air 06/24/19 06/24/19 06/24/19 06/24/19 19:25 20:00 20:50 20:55 Temp 98.5 98.5 Pulse 62 70 Resp 18 18 B/P (MAP) 99/51 (67) 114/69 Pulse Ox 96 O2 Delivery Room Air Room Air Room Air 06/24/19 06/24/19 06/25/19 06/25/19 22:00 23:59 03:54 04:09 Temp 98.4 97.6 98.4 97.6 Pulse 95 67 Resp 18 20 18 18 B/P (MAP) 115/50 (71) 155/60 (91) Pulse Ox 95 98 O2 Delivery Room Air Room Air Room Air Room Air 06/25/19 06/25/19 06/25/19 06/25/19 05:40 07:00 07:52 08:43 Temp 97.4 97.4 Pulse 59 Resp 18 18 B/P (MAP) 104/71 (82) Pulse Ox 99 98 O2 Delivery Room Air Room Air Room Air Room Air 06/25/19 09:53 Pulse Ox 98 O2 Delivery Room Air Intake and Output 06/24/19 06/24/19 06/25/19 14:59 22:59 06:59 Intake Total 500 ml 320 ml 780 ml Balance 500 ml 320 ml 780 ml LUCY SMITH MD Jun 25, 2019 10:07
--- NOTE | 2019-06-25 10:35 | NUR ---
SS following up with discharge planning. Pt accepted at [facility] pending insurance authorization. Case management followed up with Leann Scherer, this morning to get update on insurance authorization. Case management was notified that [facility] was waiting on Dr. Wallace's notes prior to making a decision on insurance authorization. SS awaiting notes from Dr. Wallace and will send once received.
[2019-06-25 11:00] VITALS: BP 102/58
--- NOTE | 2019-06-25 11:19 | PDOC ---
PROGRESS NOTES Subjective Subjective He continues with right hip area pain with movement. Objective Objective Vital Signs Date Time Temp Pulse Resp B/P (MAP) Pulse Ox O2 Delivery O2 Flow Rate FiO2 06/25/19 09:53 98 Room Air 06/25/19 07:00 97.4 59 18 104/71 (82) 97.4 Intake and Output 06/25/19 06:59 Intake Total 1600 ml Balance 1600 ml Intake Oral 1600 ml # Voids 7 # Bowel Movements 1 Physical Exam Physical Exam He is sitting in bedside chair and no change with his neurological examination,except pain medicines are making him somewhat sleepy all the time. Assessment Assessment Problems Medical Problems: (1) Short of breath on exertion Status: Acute Plan Plan of Care Waiting for neurosurgical advise. Comment Review of Relevant I have reviewed the following items get (where applicable) has been applied. Labs Laboratory Tests Test 06/23/19 13:42 06/24/19 03:35 06/25/19 05:47 Erythrocyte Sedimentation Rate 33 (0-15) White Blood Count 5.7 x10^3/uL (4.0-11.0) 5.5 x10^3/uL (4.0-11.0) Red Blood Count 2.88 x10^6/uL (4.30-5.70) 2.85 x10^6/uL (4.30-5.70) Hemoglobin 10.0 g/dL (13.0-17.5) 9.8 g/dL (13.0-17.5) Hematocrit 29.2 % (39.0-53.0) 29.1 % (39.0-53.0) Mean Corpuscular Volume 101 fL (79-100) 102 fL (79-100) Mean Corpuscular Hemoglobin 35 pg (25-35) 35 pg (25-35) Mean Corpuscular Hemoglobin Concent 34 g/dL (31-37) 34 g/dL (31-37) Red Cell Distribution Width 16.0 % (11.5-14.5) 15.4 % (11.5-14.5) Platelet Count 176 x10^3/uL (140-400) 177 x10^3/uL (140-400) Neutrophils (%) (Auto) 49 % (31-73) 50 % (31-73) Lymphocytes (%) (Auto) 37 % (24-48) 35 % (24-48) Monocytes (%) (Auto) 9 % (0-9) 10 % (0-9) Eosinophils (%) (Auto) 4 % (0-3) 4 % (0-3) Basophils (%) (Auto) 1 % (0-3) 1 % (0-3) Neutrophils # (Auto) 2.8 x10^3/uL (1.8-7.7) 2.8 x10^3/uL (1.8-7.7) Lymphocytes # (Auto) 2.1 x10^3/uL (1.0-4.8) 2.0 x10^3/uL (1.0-4.8) Monocytes # (Auto) 0.5 x10^3/uL (0.0-1.1) 0.6 x10^3/uL (0.0-1.1) Eosinophils # (Auto) 0.2 x10^3/uL (0.0-0.7) 0.2 x10^3/uL (0.0-0.7) Basophils # (Auto) 0.1 x10^3/uL (0.0-0.2) 0.1 x10^3/uL (0.0-0.2) Sodium Level 141 mmol/L (136-145) 141 mmol/L (136-145) Potassium Level 4.2 mmol/L (3.5-5.1) 4.3 mmol/L (3.5-5.1) Chloride Level 103 mmol/L (98-107) 104 mmol/L (98-107) Carbon Dioxide Level 29 mmol/L (21-32) 30 mmol/L (21-32) Anion Gap 9 (6-14) 7 (6-14) Blood Urea Nitrogen 35 mg/dL (8-26) 41 mg/dL (8-26) Creatinine 1.4 mg/dL (0.7-1.3) 1.6 mg/dL (0.7-1.3) Estimated GFR (Cockcroft-Gault) 47.9 41.1 BUN/Creatinine Ratio 25 (6-20) 26 (6-20) Glucose Level 98 mg/dL (70-99) 103 mg/dL (70-99) Calcium Level 8.9 mg/dL (8.5-10.1) 9.2 mg/dL (8.5-10.1) Total Bilirubin 0.5 mg/dL (0.2-1.0) 0.5 mg/dL (0.2-1.0) Aspartate Amino Transf (AST/SGOT) 15 U/L (15-37) 13 U/L (15-37) Alanine Aminotransferase (ALT/SGPT) 14 U/L (16-63) 17 U/L (16-63) Alkaline Phosphatase 46 U/L (46-116) 45 U/L (46-116) Total Protein 7.1 g/dL (6.4-8.2) 7.2 g/dL (6.4-8.2) Albumin 3.8 g/dL (3.4-5.0) 3.8 g/dL (3.4-5.0) Albumin/Globulin Ratio 1.2 (1.0-1.7) 1.1 (1.0-1.7) Laboratory Tests Test 06/25/19 05:47 White Blood Count 5.5 x10^3/uL (4.0-11.0) Red Blood Count 2.85 x10^6/uL (4.30-5.70) Hemoglobin 9.8 g/dL (13.0-17.5) Hematocrit 29.1 % (39.0-53.0) Mean Corpuscular Volume 102 fL (79-100) Mean Corpuscular Hemoglobin 35 pg (25-35) Mean Corpuscular Hemoglobin Concent 34 g/dL (31-37) Red Cell Distribution Width 15.4 % (11.5-14.5) Platelet Count 177 x10^3/uL (140-400) Neutrophils (%) (Auto) 50 % (31-73) Lymphocytes (%) (Auto) 35 % (24-48) Monocytes (%) (Auto) 10 % (0-9) Eosinophils (%) (Auto) 4 % (0-3) Basophils (%) (Auto) 1 % (0-3) Neutrophils # (Auto) 2.8 x10^3/uL (1.8-7.7) Lymphocytes # (Auto) 2.0 x10^3/uL (1.0-4.8) Monocytes # (Auto) 0.6 x10^3/uL (0.0-1.1) Eosinophils # (Auto) 0.2 x10^3/uL (0.0-0.7) Basophils # (Auto) 0.1 x10^3/uL (0.0-0.2) Sodium Level 141 mmol/L (136-145) Potassium Level 4.3 mmol/L (3.5-5.1) Chloride Level 104 mmol/L (98-107) Carbon Dioxide Level 30 mmol/L (21-32) Anion Gap 7 (6-14) Blood Urea Nitrogen 41 mg/dL (8-26) Creatinine 1.6 mg/dL (0.7-1.3) Estimated GFR (Cockcroft-Gault) 41.1 BUN/Creatinine Ratio 26 (6-20) Glucose Level 103 mg/dL (70-99) Calcium Level 9.2 mg/dL (8.5-10.1) Total Bilirubin 0.5 mg/dL (0.2-1.0) Aspartate Amino Transf (AST/SGOT) 13 U/L (15-37) Alanine Aminotransferase (ALT/SGPT) 17 U/L (16-63) Alkaline Phosphatase 45 U/L (46-116) Total Protein 7.2 g/dL (6.4-8.2) Albumin 3.8 g/dL (3.4-5.0) Albumin/Globulin Ratio 1.1 (1.0-1.7) Medications Current Medications Aspirin (Ecotrin) 81 mg DAILY08 PO Last administered on 06/25/19at 08:43; Start 06/19/19 at 08:00 Acetaminophen/ Hydrocodone Bitart (Lortab 5/325) 1 tab PRN QID PRN PO PAIN; Start 06/18/19 at 15:00; Stop 06/18/19 at 15:10; Status DC Lisinopril (Prinivil) 5 mg HS PO Last administered on 06/21/19at 21:24; Start 06/18/19 at 21:00; Stop 06/22/19 at 08:16; Status DC Sennosides (Senna) 8.6 mg BID PO Last administered on 06/25/19at 08:43; Start 06/18/19 at 21:00 Tamsulosin HCl (Flomax) 0.4 mg DAILY PO ; Start 06/19/19 at 09:00; Stop 06/18/19 at 20:00; Status DC Calcium Carbonate/ Glycine (Tums) 500 mg PRN AFTMEALHC PRN PO INDIGESTION; Start 06/18/19 at 15:00 Ondansetron HCl (Zofran) 4 mg PRN Q6HRS PRN IVP NAUSEA/VOMITING; Start 06/18/19 at 15:00 Temazepam (Restoril) 7.5 mg PRN QHS PRN PO INSOMNIA; Start 06/18/19 at 15:00 Clonidine HCl (Catapres) 0.1 mg PRN Q1HR PRN PO HYPERTENSION; Start 06/18/19 at 15:00 Albuterol Sulfate (Ventolin Neb Soln) 2.5 mg PRN Q4HRS PRN NEB SHORTNESS OF BREATH Last administered on 06/21/19at 15:50; Start 06/18/19 at 15:00 Guaifenesin/ Codeine Phosphate (Robitussin Ac) 5 ml PRN Q6HRS PRN PO COUGH; Start 06/18/19 at 15:00 Acetaminophen/ Hydrocodone Bitart (Lortab 5/325) 1 tab PRN Q4HRS PRN PO PAIN Last administered on 06/19/19at 08:51; Start 06/18/19 at 15:00; Stop 06/19/19 at 10:33; Status DC Sodium Chloride 1,000 ml @ 75 mls/hr 1X ONCE IV Last administered on 06/18/19at 20:26; Start 06/18/19 at 15:00; Stop 06/19/19 at 04:19; Status DC Memantine (Namenda) 10 mg BID PO Last administered on 06/25/19at 08:43; Start 06/18/19 at 21:00 Donepezil HCl (Aricept) 5 mg DAILY PO Last administered on 06/25/19at 08:43; Start 06/19/19 at 09:00 Multivitamins (Thera M Plus) 1 tab DAILY PO Last administered on 06/25/19at 08:43; Start 06/19/19 at 09:00 Vitamin B Complex (Folbic Tablet) 1 tab DAILY PO Last administered on 06/25/19at 08:43; Start 06/19/19 at 09:00 Quetiapine Fumarate (SEROquel) 25 mg BID PO Last administered on 06/25/19 08:43; Start 06/18/19 at 21:00 Vitamin D (Vitamin D3) 1,000 unit DAILY PO Last administered on 06/25/19 08:43; Start 06/19/19 at 09:00 Prednisone (Prednisone) 10 mg DAILY PO Last administered on 06/25/19 08:43; Start 06/19/19 at 10:30 Pantoprazole Sodium (Protonix) 40 mg DAILYAC PO Last administered on 06/25/19 07:10; Start 06/19/19 at 10:30 Tizanidine HCl (Zanaflex) 4 mg PRN Q8HRS PRN PO MUSCLE SPASMS Last administered on 06/24/19 20:49; Start 06/19/19 at 10:30 Acetaminophen/ Hydrocodone Bitart (Lortab 10/325) 1 tab PRN Q6HRS PRN PO MODERATE PAIN Last administered on 06/24/19 03:52; Start 06/19/19 at 10:30 Oxycodone/ Acetaminophen (Percocet 10/325) 1 tab PRN Q4HRS PRN PO SEVERE PAIN Last administered on 06/25/19 08:43; Start 06/20/19 at 12:30 Polysaccharide Iron Complex (Niferex 150) 150 mg BID PO Last administered on 06/25/19 08:45; Start 06/21/19 at 21:00 Lisinopril (Prinivil) 10 mg QHS PO Last administered on 06/24/19 20:55; Start 06/22/19 at 21:00 Methylprednisolone Acetate (DEPO-Medrol 40MG VIAL) 40 mg 1X ONCE IM ; Start 06/23/19 at 13:00; Stop 06/23/19 at 13:01; Status DC Bupivacaine HCl (Sensorcaine-Mpf 0.25%) 10 ml 1X ONCE IJ ; Start 06/23/19 at 13:00; Stop 06/23/19 at 13:01; Status DC Diazepam (Valium) 5 mg OC PROC PRN PO PRE -MRI X1 Last administered on 06/23/19at 14:16; Start 06/23/19 at 13:15; Stop 06/24/19 at 13:14; Status DC Morphine Sulfate (Morphine Sulfate) 4 mg OC PROC PRN IM PRE-MRI X1 Last administered on 06/23/19at 15:02; Start 06/23/19 at 13:00; Stop 06/24/19 at 12:59; Status DC Active Scripts Active Lisinopril 10 Mg Tablet 1 Tab PO DAILY Thera-M Tablet (Multivits,Ca,Minerals/Iron/Fa) 1 Each Tablet 1 Tab PO DAILY Folbic Tablet (Cyanocobalamin/Fa/Pyridoxine) 1 Each Tablet 1 Tab PO DAILY Prednisone (Prednisone) 10 Mg Tablet 10 Mg PO DAILY 4 Days [guaiFENesin/CODEINE 100mg/10mg] 5 ML Liquid 5 Ml PO PRN Q6HRS PRN 10 Days Proair Hfa (Albuterol Sulfate) 8.5 Gm Hfa.aer.ad 2.5 Mg NEB PRN Q4HRS PRN 30 Days Tizanidine Hcl 4 Mg Tablet 4 Mg PO PRN Q8HRS PRN Hydrocodone-Apap 5-325 (Hydrocodone Bit/Acetaminophen) 1 Each Tablet 1 Tab PO PRN Q4-6HRS PRN Reported Namenda (Memantine Hcl) 10 Mg Tablet 1 Tab PO BID Vitamin D3 (Cholecalciferol (Vitamin D3)) 1,000 Unit Tablet 1 Tab PO DAILY Donepezil Hcl 10 Mg Tablet 1 Tab PO DAILY Seroquel (Quetiapine Fumarate) 25 Mg Tablet 25 Mg PO BID Senokot (Sennosides) 8.6 Mg Tablet 1 Tab PO BID Aspir 81 (Aspirin) 81 Mg Tablet.dr 81 Mg PO DAILY08 Lisinopril 5 Mg Tablet 5 Mg PO HS Vitals/I & O Vital Sign - Last 24 Hours 06/24/19 06/24/19 06/24/19 06/24/19 14:03 15:00 15:09 19:25 Temp 98.0 98.5 98.0 98.5 Pulse 62 62 Resp 16 16 16 18 B/P (MAP) 104/53 (70) 99/51 (67) Pulse Ox 96 96 O2 Delivery Room Air Room Air Room Air Room Air 06/24/19 06/24/19 06/24/19 06/24/19 20:00 20:50 20:55 22:00 Pulse 70 Resp 18 18 B/P (MAP) 114/69 O2 Delivery Room Air Room Air Room Air 06/24/19 06/25/19 06/25/19 06/25/19 23:59 03:54 04:09 05:40 Temp 98.4 97.6 98.4 97.6 Pulse 95 67 Resp 20 18 18 18 B/P (MAP) 115/50 (71) 155/60 (91) Pulse Ox 95 98 O2 Delivery Room Air Room Air Room Air Room Air 06/25/19 06/25/19 06/25/19 06/25/19 07:00 07:52 08:43 09:53 Temp 97.4 97.4 Pulse 59 Resp 18 B/P (MAP) 104/71 (82) Pulse Ox 99 98 98 O2 Delivery Room Air Room Air Room Air Room Air Intake and Output 06/24/19 06/24/19 06/25/19 14:59 22:59 06:59 Intake Total 500 ml 320 ml 780 ml Balance 500 ml 320 ml 780 ml JASPREET HO MD Jun 25, 2019 11:19
[2019-06-25] MEDS ORDERED: methylPREDNISolone ACETATE 40 MG/ML VIAL. ONE (12:51)
[2019-06-25] MEDS ORDERED: methylPREDNISolone ACETATE 80 MG/ML VIAL. ONE (12:52)
[2019-06-25] MEDS ORDERED: IOHEXOL 180 MG/ML 10 ML VIAL. ONE (12:52)
--- NOTE | 2019-06-25 13:11 | PDOC ---
Provider Note Provider Note Patient seen and examined at 1120 c/o back and right hip pain strength and sensation intact in BLE MRI with multilevel degenerative changes most severe at L3-4 with severe stenosis and a Grade I spondylolisthesis Spoke with son, Jose regarding options. We will proceed with LESI Surgery would likely require instrumentation in addition to laminectomy due to the spondylolisthesis and with his comorbidities and history of dementia, all in agreement that he should be treated with conservative treatments Call with questions KURT BOWEN MD Jun 25, 2019 13:11
--- NOTE | 2019-06-25 13:12 | PDOC ---
SUBJECTIVE Subjective low back pain OBJECTIVE Objective 89yo male c/o low back pain, chronic. Denies any injury or any recent fall. He is having difficulty standing on his right leg secondary to the pain. He was first diagnosed as having sciatica and completed 2 months of home physical therapy without any improvement. He denies any trouble with his bowel or bladder control. The patient denies any numbness or tingling sensation in the extremities. Vital Signs Vital Signs Date Time Temp Pulse Resp B/P (MAP) Pulse Ox O2 Delivery O2 Flow Rate FiO2 06/25/19 11:00 97.6 57 16 102/58 (73) 96 Room Air 97.6 06/25/19 09:53 98 Room Air 06/25/19 08:43 98 Room Air 06/25/19 07:52 Room Air 06/25/19 07:00 97.4 59 18 104/71 (82) 99 Room Air 97.4 06/25/19 05:40 18 Room Air 06/25/19 04:09 18 Room Air 06/25/19 03:54 97.6 67 18 155/60 (91) 98 Room Air 97.6 06/24/19 23:59 98.4 95 20 115/50 (71) 95 Room Air 98.4 06/24/19 22:00 18 Room Air 06/24/19 20:55 70 114/69 06/24/19 20:50 18 Room Air 06/24/19 20:00 Room Air 06/24/19 19:25 98.5 62 18 99/51 (67) 96 Room Air 98.5 06/24/19 15:09 16 Room Air 06/24/19 15:00 98.0 62 16 104/53 (70) 96 Room Air 98.0 06/24/19 14:03 16 Room Air I & O Intake and Output 06/25/19 07:00 Intake Total 1600 ml Balance 1600 ml Intake Oral 1600 ml # Voids 7 # Bowel Movements 1 PHYSICAL EXAM Physical Exam A&O HEENT= NCAT BS= bilat Heart s1s2 clear Abd soft, nt,nd back- tender paraspinous bilart LE's DTRS 1/4+ motor 4/5 bilat ASSESSMENT/PLAN Assessment/Plan Plan- options/ risks/benefits discussed- LESI today COMMENT Lab Laboratory Tests Test 06/25/19 05:47 White Blood Count 5.5 x10^3/uL (4.0-11.0) Red Blood Count 2.85 x10^6/uL (4.30-5.70) Hemoglobin 9.8 g/dL (13.0-17.5) Hematocrit 29.1 % (39.0-53.0) Mean Corpuscular Volume 102 fL (79-100) Mean Corpuscular Hemoglobin 35 pg (25-35) Mean Corpuscular Hemoglobin Concent 34 g/dL (31-37) Red Cell Distribution Width 15.4 % (11.5-14.5) Platelet Count 177 x10^3/uL (140-400) Neutrophils (%) (Auto) 50 % (31-73) Lymphocytes (%) (Auto) 35 % (24-48) Monocytes (%) (Auto) 10 % (0-9) Eosinophils (%) (Auto) 4 % (0-3) Basophils (%) (Auto) 1 % (0-3) Neutrophils # (Auto) 2.8 x10^3/uL (1.8-7.7) Lymphocytes # (Auto) 2.0 x10^3/uL (1.0-4.8) Monocytes # (Auto) 0.6 x10^3/uL (0.0-1.1) Eosinophils # (Auto) 0.2 x10^3/uL (0.0-0.7) Basophils # (Auto) 0.1 x10^3/uL (0.0-0.2) Sodium Level 141 mmol/L (136-145) Potassium Level 4.3 mmol/L (3.5-5.1) Chloride Level 104 mmol/L (98-107) Carbon Dioxide Level 30 mmol/L (21-32) Anion Gap 7 (6-14) Blood Urea Nitrogen 41 mg/dL (8-26) Creatinine 1.6 mg/dL (0.7-1.3) Estimated GFR (Cockcroft-Gault) 41.1 BUN/Creatinine Ratio 26 (6-20) Glucose Level 103 mg/dL (70-99) Calcium Level 9.2 mg/dL (8.5-10.1) Total Bilirubin 0.5 mg/dL (0.2-1.0) Aspartate Amino Transf (AST/SGOT) 13 U/L (15-37) Alanine Aminotransferase (ALT/SGPT) 17 U/L (16-63) Alkaline Phosphatase 45 U/L (46-116) Total Protein 7.2 g/dL (6.4-8.2) Albumin 3.8 g/dL (3.4-5.0) Albumin/Globulin Ratio 1.1 (1.0-1.7) ELIAZAR MARTINEZ MD Jun 25, 2019 13:12
[2019-06-25 15:00] VITALS: BP 144/76
[2019-06-25 19:50] VITALS: BP 137/75
[2019-06-25] MEDS: LISINOPRIL 10 MG TABLET PO SCH (22:28)
[2019-06-25 23:50] VITALS: BP 139/86
[2019-06-26 03:55] VITALS: BP 148/84
[2019-06-26] MEDS: oxyCODONE/APAP 10/325 1 TAB TABLET PO PRN ×2 (05:06→14:23)
[2019-06-26] MEDS: PANTOPRAZOLE 40 MG TABLET.DR. PO SCH (06:09)
[2019-06-26 07:00] VITALS: BP 149/62
[2019-06-26 08:32] LABS: BASO % 1 % (0-3); EOS # 0.1 x10^3/uL (0.0-0.7); EOS % 2 % (0-3); HEMATOCRIT 26.7 % (39.0-53.0); HEMOGLOBIN 9.3 g/dL (13.0-17.5); LYMPH # 1.4 x10^3/uL (1.0-4.8); LYMPH % 22 % (24-48); MEAN CORPUSCULAR HEMOGLOBIN 35 pg (25-35); MEAN CORPUSCULAR HGB CONC 35 g/dL (31-37); MEAN CORPUSCULAR VOLUME 101 fL (79-100); MONO # 0.5 x10^3/uL (0.0-1.1); MONO % 9 % (0-9); NEUT # 4.1 x10^3/uL (1.8-7.7); NEUT % 67 % (31-73); PLATELET COUNT 164 x10^3/uL (140-400); RED BLOOD COUNT 2.64 x10^6/uL (4.30-5.70); RED CELL DISTRIBUTION WIDTH 15.5 % (11.5-14.5); WHITE BLOOD COUNT 6.1 x10^3/uL (4.0-11.0)
[2019-06-26 09:17] LABS: ALBUMIN 3.6 g/dL (3.4-5.0); ALBUMIN/GLOBULIN RATIO 1.2 (1.0-1.7); CREATININE 1.4 mg/dL (0.7-1.3); GFR 47.9; POTASSIUM 4.6 mmol/L (3.5-5.1); TOTAL BILIRUBIN 0.4 mg/dL (0.2-1.0); TOTAL PROTEIN 6.6 g/dL (6.4-8.2)
--- NOTE | 2019-06-26 09:53 | PDOC ---
PROGRESS NOTES Chief Complaint Chief Complaint 1. Myalgia x mos, anterior thigh - sciatica, lumbar stenosis 2. Recent tx for sciatica, possible - s/.p short pred Bilateral total hip arthroplasties. Normal alignment. No fracture. Lower lumbar spondylosis. No perihardware lucency. 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 Lower lumbar spondylosis. ON MRI , severe spinal stenosis L3-4, other multilevel lateral recess stenosis greatest bilaterally at L4-5 and L2-3. Neural foramina compromise is greatest bilaterally at L3-4 and on the left at L4-5, lesser degree of narrowing on the right at L2-3 and bilaterally at L5-S1. 3. Dementia - good iadls - on meds 4. HTN - with chronic diastolic CHF 5. BPH - prev on flomax- request cathy, i will re start flomax, WOF orthostasis 6. HX left shoulder arthroplasty - as seen on CXR 7. SOA with recent pitting edema, BNP 1900- check echo, no signif edema currently Anemia, macrocytic FULL CODE History of Present Illness History of Present Illness my dc order 3-4 days ago got cancelled bec he continued to have rt buttock cheek pain NOW underwent LESI by pain mx 06/25 [facility] slated but still waiting on insurance auth pending neuro sx note last friday ASleep now i did not awaken, VS labs ok PLAN: WIll be here over wekend not unless we get snu aurth this weekend from [place] FULL CODE CPM pain regimen Vitals Vitals Vital Signs Date Time Temp Pulse Resp B/P (MAP) Pulse Ox O2 Delivery O2 Flow Rate FiO2 06/26/19 07:00 97.6 63 16 149/62 (91) 95 Room Air 97.6 Physical Exam General: Alert, Cooperative, No acute distress Heart: Regular rate Lungs: Clear, Crackles Abdomen: Normal bowel sounds, Soft Extremities: Other (1+ pitting pedal edema) Skin: No rashes, No breakdown, No significant lesion Labs LABS Laboratory Tests Test 06/26/19 08:05 White Blood Count 6.1 x10^3/uL (4.0-11.0) Red Blood Count 2.64 x10^6/uL (4.30-5.70) Hemoglobin 9.3 g/dL (13.0-17.5) Hematocrit 26.7 % (39.0-53.0) Mean Corpuscular Volume 101 fL (79-100) Mean Corpuscular Hemoglobin 35 pg (25-35) Mean Corpuscular Hemoglobin Concent 35 g/dL (31-37) Red Cell Distribution Width 15.5 % (11.5-14.5) Platelet Count 164 x10^3/uL (140-400) Neutrophils (%) (Auto) 67 % (31-73) Lymphocytes (%) (Auto) 22 % (24-48) Monocytes (%) (Auto) 9 % (0-9) Eosinophils (%) (Auto) 2 % (0-3) Basophils (%) (Auto) 1 % (0-3) Neutrophils # (Auto) 4.1 x10^3/uL (1.8-7.7) Lymphocytes # (Auto) 1.4 x10^3/uL (1.0-4.8) Monocytes # (Auto) 0.5 x10^3/uL (0.0-1.1) Eosinophils # (Auto) 0.1 x10^3/uL (0.0-0.7) Basophils # (Auto) 0.0 x10^3/uL (0.0-0.2) Sodium Level 141 mmol/L (136-145) Potassium Level 4.6 mmol/L (3.5-5.1) Chloride Level 104 mmol/L (98-107) Carbon Dioxide Level 29 mmol/L (21-32) Anion Gap 8 (6-14) Blood Urea Nitrogen 39 mg/dL (8-26) Creatinine 1.4 mg/dL (0.7-1.3) Estimated GFR (Cockcroft-Gault) 47.9 BUN/Creatinine Ratio 28 (6-20) Glucose Level 105 mg/dL (70-99) Calcium Level 9.0 mg/dL (8.5-10.1) Total Bilirubin 0.4 mg/dL (0.2-1.0) Aspartate Amino Transf (AST/SGOT) 13 U/L (15-37) Alanine Aminotransferase (ALT/SGPT) 16 U/L (16-63) Alkaline Phosphatase 43 U/L (46-116) Total Protein 6.6 g/dL (6.4-8.2) Albumin 3.6 g/dL (3.4-5.0) Albumin/Globulin Ratio 1.2 (1.0-1.7) Review of Systems Review of Systems asleep, i did not awaken Assessment and Plan Assessmemt and Plan Problems Medical Problems: (1) Short of breath on exertion Status: Acute Comment Review of Relevant I have reviewed the following items get (where applicable) has been applied. Labs Laboratory Tests Test 06/25/19 05:47 06/26/19 08:05 White Blood Count 5.5 x10^3/uL (4.0-11.0) 6.1 x10^3/uL (4.0-11.0) Red Blood Count 2.85 x10^6/uL (4.30-5.70) 2.64 x10^6/uL (4.30-5.70) Hemoglobin 9.8 g/dL (13.0-17.5) 9.3 g/dL (13.0-17.5) Hematocrit 29.1 % (39.0-53.0) 26.7 % (39.0-53.0) Mean Corpuscular Volume 102 fL (79-100) 101 fL (79-100) Mean Corpuscular Hemoglobin 35 pg (25-35) 35 pg (25-35) Mean Corpuscular Hemoglobin Concent 34 g/dL (31-37) 35 g/dL (31-37) Red Cell Distribution Width 15.4 % (11.5-14.5) 15.5 % (11.5-14.5) Platelet Count 177 x10^3/uL (140-400) 164 x10^3/uL (140-400) Neutrophils (%) (Auto) 50 % (31-73) 67 % (31-73) Lymphocytes (%) (Auto) 35 % (24-48) 22 % (24-48) Monocytes (%) (Auto) 10 % (0-9) 9 % (0-9) Eosinophils (%) (Auto) 4 % (0-3) 2 % (0-3) Basophils (%) (Auto) 1 % (0-3) 1 % (0-3) Neutrophils # (Auto) 2.8 x10^3/uL (1.8-7.7) 4.1 x10^3/uL (1.8-7.7) Lymphocytes # (Auto) 2.0 x10^3/uL (1.0-4.8) 1.4 x10^3/uL (1.0-4.8) Monocytes # (Auto) 0.6 x10^3/uL (0.0-1.1) 0.5 x10^3/uL (0.0-1.1) Eosinophils # (Auto) 0.2 x10^3/uL (0.0-0.7) 0.1 x10^3/uL (0.0-0.7) Basophils # (Auto) 0.1 x10^3/uL (0.0-0.2) 0.0 x10^3/uL (0.0-0.2) Sodium Level 141 mmol/L (136-145) 141 mmol/L (136-145) Potassium Level 4.3 mmol/L (3.5-5.1) 4.6 mmol/L (3.5-5.1) Chloride Level 104 mmol/L (98-107) 104 mmol/L (98-107) Carbon Dioxide Level 30 mmol/L (21-32) 29 mmol/L (21-32) Anion Gap 7 (6-14) 8 (6-14) Blood Urea Nitrogen 41 mg/dL (8-26) 39 mg/dL (8-26) Creatinine 1.6 mg/dL (0.7-1.3) 1.4 mg/dL (0.7-1.3) Estimated GFR (Cockcroft-Gault) 41.1 47.9 BUN/Creatinine Ratio 26 (6-20) 28 (6-20) Glucose Level 103 mg/dL (70-99) 105 mg/dL (70-99) Calcium Level 9.2 mg/dL (8.5-10.1) 9.0 mg/dL (8.5-10.1) Total Bilirubin 0.5 mg/dL (0.2-1.0) 0.4 mg/dL (0.2-1.0) Aspartate Amino Transf (AST/SGOT) 13 U/L (15-37) 13 U/L (15-37) Alanine Aminotransferase (ALT/SGPT) 17 U/L (16-63) 16 U/L (16-63) Alkaline Phosphatase 45 U/L (46-116) 43 U/L (46-116) Total Protein 7.2 g/dL (6.4-8.2) 6.6 g/dL (6.4-8.2) Albumin 3.8 g/dL (3.4-5.0) 3.6 g/dL (3.4-5.0) Albumin/Globulin Ratio 1.1 (1.0-1.7) 1.2 (1.0-1.7) Laboratory Tests Test 06/26/19 08:05 White Blood Count 6.1 x10^3/uL (4.0-11.0) Red Blood Count 2.64 x10^6/uL (4.30-5.70) Hemoglobin 9.3 g/dL (13.0-17.5) Hematocrit 26.7 % (39.0-53.0) Mean Corpuscular Volume 101 fL (79-100) Mean Corpuscular Hemoglobin 35 pg (25-35) Mean Corpuscular Hemoglobin Concent 35 g/dL (31-37) Red Cell Distribution Width 15.5 % (11.5-14.5) Platelet Count 164 x10^3/uL (140-400) Neutrophils (%) (Auto) 67 % (31-73) Lymphocytes (%) (Auto) 22 % (24-48) Monocytes (%) (Auto) 9 % (0-9) Eosinophils (%) (Auto) 2 % (0-3) Basophils (%) (Auto) 1 % (0-3) Neutrophils # (Auto) 4.1 x10^3/uL (1.8-7.7) Lymphocytes # (Auto) 1.4 x10^3/uL (1.0-4.8) Monocytes # (Auto) 0.5 x10^3/uL (0.0-1.1) Eosinophils # (Auto) 0.1 x10^3/uL (0.0-0.7) Basophils # (Auto) 0.0 x10^3/uL (0.0-0.2) Sodium Level 141 mmol/L (136-145) Potassium Level 4.6 mmol/L (3.5-5.1) Chloride Level 104 mmol/L (98-107) Carbon Dioxide Level 29 mmol/L (21-32) Anion Gap 8 (6-14) Blood Urea Nitrogen 39 mg/dL (8-26) Creatinine 1.4 mg/dL (0.7-1.3) Estimated GFR (Cockcroft-Gault) 47.9 BUN/Creatinine Ratio 28 (6-20) Glucose Level 105 mg/dL (70-99) Calcium Level 9.0 mg/dL (8.5-10.1) Total Bilirubin 0.4 mg/dL (0.2-1.0) Aspartate Amino Transf (AST/SGOT) 13 U/L (15-37) Alanine Aminotransferase (ALT/SGPT) 16 U/L (16-63) Alkaline Phosphatase 43 U/L (46-116) Total Protein 6.6 g/dL (6.4-8.2) Albumin 3.6 g/dL (3.4-5.0) Albumin/Globulin Ratio 1.2 (1.0-1.7) Medications Current Medications Aspirin (Ecotrin) 81 mg DAILY08 PO Last administered on 06/25/19at 08:43; Start 06/19/19 at 08:00 Acetaminophen/ Hydrocodone Bitart (Lortab 5/325) 1 tab PRN QID PRN PO PAIN; Start 06/18/19 at 15:00; Stop 06/18/19 at 15:10; Status DC Lisinopril (Prinivil) 5 mg HS PO Last administered on 06/21/19at 21:24; Start 06/18/19 at 21:00; Stop 06/22/19 at 08:16; Status DC Sennosides (Senna) 8.6 mg BID PO Last administered on 06/25/19at 22:28; Start 06/18/19 at 21:00 Tamsulosin HCl (Flomax) 0.4 mg DAILY PO ; Start 06/19/19 at 09:00; Stop 06/18/19 at 20:00; Status DC Calcium Carbonate/ Glycine (Tums) 500 mg PRN AFTMEALHC PRN PO INDIGESTION; Start 06/18/19 at 15:00 Ondansetron HCl (Zofran) 4 mg PRN Q6HRS PRN IVP NAUSEA/VOMITING; Start 06/18/19 at 15:00 Temazepam (Restoril) 7.5 mg PRN QHS PRN PO INSOMNIA; Start 06/18/19 at 15:00 Clonidine HCl (Catapres) 0.1 mg PRN Q1HR PRN PO HYPERTENSION; Start 06/18/19 at 15:00 Albuterol Sulfate (Ventolin Neb Soln) 2.5 mg PRN Q4HRS PRN NEB SHORTNESS OF BREATH Last administered on 06/21/19at 15:50; Start 06/18/19 at 15:00 Guaifenesin/ Codeine Phosphate (Robitussin Ac) 5 ml PRN Q6HRS PRN PO COUGH; Start 06/18/19 at 15:00 Acetaminophen/ Hydrocodone Bitart (Lortab 5/325) 1 tab PRN Q4HRS PRN PO PAIN Last administered on 06/19/19at 08:51; Start 06/18/19 at 15:00; Stop 06/19/19 at 10:33; Status DC Sodium Chloride 1,000 ml @ 75 mls/hr 1X ONCE IV Last administered on 06/18/19at 20:26; Start 06/18/19 at 15:00; Stop 06/19/19 at 04:19; Status DC Memantine (Namenda) 10 mg BID PO Last administered on 06/25/19at 22:29; Start 06/18/19 at 21:00 Donepezil HCl (Aricept) 5 mg DAILY PO Last administered on 06/25/19at 08:43; Start 06/19/19 at 09:00 Multivitamins (Thera M Plus) 1 tab DAILY PO Last administered on 06/25/19at 0 8:43; Start 06/19/19 at 09:00 Vitamin B Complex (Folbic Tablet) 1 tab DAILY PO Last administered on 06/25/19at 08:43; Start 06/19/19 at 09:00 Quetiapine Fumarate (SEROquel) 25 mg BID PO Last administered on 06/25/19at 22:28; Start 06/18/19 at 21:00 Vitamin D (Vitamin D3) 1,000 unit DAILY PO Last administered on 06/25/19at 08:43; Start 06/19/19 at 09:00 Prednisone (Prednisone) 10 mg DAILY PO Last administered on 06/25/19at 08:43; Start 06/19/19 at 10:30 Pantoprazole Sodium (Protonix) 40 mg DAILYAC PO Last administered on 06/26/19 06:09; Start 06/19/19 at 10:30 Tizanidine HCl (Zanaflex) 4 mg PRN Q8HRS PRN PO MUSCLE SPASMS Last administered on 06/24/19at 20:49; Start 06/19/19 at 10:30 Acetaminophen/ Hydrocodone Bitart (Lortab 10/325) 1 tab PRN Q6HRS PRN PO MODERATE PAIN Last administered on 06/24/19at 03:52; Start 06/19/19 at 10:30 Oxycodone/ Acetaminophen (Percocet 10/325) 1 tab PRN Q4HRS PRN PO SEVERE PAIN Last administered on 06/26/19 05:06; Start 06/20/19 at 12:30 Polysaccharide Iron Complex (Niferex 150) 150 mg BID PO Last administered on 06/25/19 22:29; Start 06/21/19 at 21:00 Lisinopril (Prinivil) 10 mg QHS PO Last administered on 06/25/19at 22:28; Start 06/22/19 at 21:00 Methylprednisolone Acetate (DEPO-Medrol 40MG VIAL) 40 mg 1X ONCE IM ; Start 06/23/19 at 13:00; Stop 06/23/19 at 13:01; Status DC Bupivacaine HCl (Sensorcaine-Mpf 0.25%) 10 ml 1X ONCE IJ ; Start 06/23/19 at 13:00; Stop 06/23/19 at 13:01; Status DC Diazepam (Valium) 5 mg OC PROC PRN PO PRE -MRI X1 Last administered on 06/23/19at 14:16; Start 06/23/19 at 13:15; Stop 06/24/19 at 13:14; Status DC Morphine Sulfate (Morphine Sulfate) 4 mg OC PROC PRN IM PRE-MRI X1 Last administered on 06/23/19at 15:02; Start 06/23/19 at 13:00; Stop 06/24/19 at 12:59; Status DC Methylprednisolone Acetate (DEPO-Medrol 40MG VIAL) 40 mg STK-MED ONCE .ROUTE ; Start 06/25/19 at 12:51; Stop 06/25/19 at 12:52; Status DC Iohexol (Omnipaque 180 Mg/ml) 10 ml STK-MED ONCE .ROUTE ; Start 06/25/19 at 12:52; Stop 06/25/19 at 12:52; Status DC Methylprednisolone Acetate (DEPO-Medrol 80MG VIAL) 80 mg STK-MED ONCE .ROUTE ; Start 06/25/19 at 12:52; Stop 06/25/19 at 12:52; Status DC Active Scripts Active Lisinopril 10 Mg Tablet 1 Tab PO DAILY Thera-M Tablet (Multivits,Ca,Minerals/Iron/Fa) 1 Each Tablet 1 Tab PO DAILY Folbic Tablet (Cyanocobalamin/Fa/Pyridoxine) 1 Each Tablet 1 Tab PO DAILY Prednisone (Prednisone) 10 Mg Tablet 10 Mg PO DAILY 4 Days [guaiFENesin/CODEINE 100mg/10mg] 5 ML Liquid 5 Ml PO PRN Q6HRS PRN 10 Days Proair Hfa (Albuterol Sulfate) 8.5 Gm Hfa.aer.ad 2.5 Mg NEB PRN Q4HRS PRN 30 Days Tizanidine Hcl 4 Mg Tablet 4 Mg PO PRN Q8HRS PRN Hydrocodone-Apap 5-325 (Hydrocodone Bit/Acetaminophen) 1 Each Tablet 1 Tab PO PRN Q4-6HRS PRN Reported Namenda (Memantine Hcl) 10 Mg Tablet 1 Tab PO BID Vitamin D3 (Cholecalciferol (Vitamin D3)) 1,000 Unit Tablet 1 Tab PO DAILY Donepezil Hcl 10 Mg Tablet 1 Tab PO DAILY Seroquel (Quetiapine Fumarate) 25 Mg Tablet 25 Mg PO BID Senokot (Sennosides) 8.6 Mg Tablet 1 Tab PO BID Aspir 81 (Aspirin) 81 Mg Tablet.dr 81 Mg PO DAILY08 Lisinopril 5 Mg Tablet 5 Mg PO HS Vitals/I & O Vital Sign - Last 24 Hours 06/25/19 06/25/19 06/25/19 06/25/19 09:53 11:00 15:00 19:35 Temp 97.6 97.7 97.6 97.7 Pulse 57 55 Resp 16 18 B/P (MAP) 102/58 (73) 144/76 (98) Pulse Ox 98 96 95 O2 Delivery Room Air Room Air Room Air Room Air 06/25/19 06/25/19 06/25/19 06/26/19 19:50 22:28 23:50 03:55 Temp 97.7 97.5 97.8 97.7 97.5 97.8 Pulse 65 65 66 71 Resp 16 16 17 B/P (MAP) 137/75 (95) 137/75 139/86 (103) 148/84 (105) Pulse Ox 97 97 97 O2 Delivery Room Air Room Air Room Air 06/26/19 06/26/19 06/26/19 05:06 06:06 07:00 Temp 97.6 97.6 Pulse 63 Resp 16 B/P (MAP) 149/62 (91) Pulse Ox 95 O2 Delivery Room Air Room Air Room Air Intake and Output 06/25/19 06/25/19 06/26/19 15:00 23:00 07:00 Intake Total 520 ml 200 ml 350 ml Output Total 200 ml 200 ml Balance 520 ml 0 ml 150 ml FERMIN MONTANA MD Jun 26, 2019 09:53
--- NOTE | 2019-06-26 10:42 | PDOC ---
PROGRESS NOTES Subjective Subjective He admits some help with lumbar epidural steroid injection. Objective Objective Vital Signs Date Time Temp Pulse Resp B/P (MAP) Pulse Ox O2 Delivery O2 Flow Rate FiO2 06/26/19 07:00 97.6 63 16 149/62 (91) 95 Room Air 97.6 Intake and Output 06/26/19 07:00 Intake Total 1070 ml Output Total 400 ml Balance 670 ml Intake Oral 1070 ml Output Urine Total 400 ml # Voids 1 # Bowel Movements 1 Physical Exam Physical Exam He is sleepy but can be awakened and I saw him walking with roller walker to the bathroom. Assessment Assessment Problems Medical Problems: (1) Short of breath on exertion Status: Acute Plan Plan of Care Agree with plans for SNF transfer when medically stable. Comment Review of Relevant I have reviewed the following items get (where applicable) has been applied. Labs Laboratory Tests Test 06/25/19 05:47 06/26/19 08:05 White Blood Count 5.5 x10^3/uL (4.0-11.0) 6.1 x10^3/uL (4.0-11.0) Red Blood Count 2.85 x10^6/uL (4.30-5.70) 2.64 x10^6/uL (4.30-5.70) Hemoglobin 9.8 g/dL (13.0-17.5) 9.3 g/dL (13.0-17.5) Hematocrit 29.1 % (39.0-53.0) 26.7 % (39.0-53.0) Mean Corpuscular Volume 102 fL (79-100) 101 fL (79-100) Mean Corpuscular Hemoglobin 35 pg (25-35) 35 pg (25-35) Mean Corpuscular Hemoglobin Concent 34 g/dL (31-37) 35 g/dL (31-37) Red Cell Distribution Width 15.4 % (11.5-14.5) 15.5 % (11.5-14.5) Platelet Count 177 x10^3/uL (140-400) 164 x10^3/uL (140-400) Neutrophils (%) (Auto) 50 % (31-73) 67 % (31-73) Lymphocytes (%) (Auto) 35 % (24-48) 22 % (24-48) Monocytes (%) (Auto) 10 % (0-9) 9 % (0-9) Eosinophils (%) (Auto) 4 % (0-3) 2 % (0-3) Basophils (%) (Auto) 1 % (0-3) 1 % (0-3) Neutrophils # (Auto) 2.8 x10^3/uL (1.8-7.7) 4.1 x10^3/uL (1.8-7.7) Lymphocytes # (Auto) 2.0 x10^3/uL (1.0-4.8) 1.4 x10^3/uL (1.0-4.8) Monocytes # (Auto) 0.6 x10^3/uL (0.0-1.1) 0.5 x10^3/uL (0.0-1.1) Eosinophils # (Auto) 0.2 x10^3/uL (0.0-0.7) 0.1 x10^3/uL (0.0-0.7) Basophils # (Auto) 0.1 x10^3/uL (0.0-0.2) 0.0 x10^3/uL (0.0-0.2) Sodium Level 141 mmol/L (136-145) 141 mmol/L (136-145) Potassium Level 4.3 mmol/L (3.5-5.1) 4.6 mmol/L (3.5-5.1) Chloride Level 104 mmol/L (98-107) 104 mmol/L (98-107) Carbon Dioxide Level 30 mmol/L (21-32) 29 mmol/L (21-32) Anion Gap 7 (6-14) 8 (6-14) Blood Urea Nitrogen 41 mg/dL (8-26) 39 mg/dL (8-26) Creatinine 1.6 mg/dL (0.7-1.3) 1.4 mg/dL (0.7-1.3) Estimated GFR (Cockcroft-Gault) 41.1 47.9 BUN/Creatinine Ratio 26 (6-20) 28 (6-20) Glucose Level 103 mg/dL (70-99) 105 mg/dL (70-99) Calcium Level 9.2 mg/dL (8.5-10.1) 9.0 mg/dL (8.5-10.1) Total Bilirubin 0.5 mg/dL (0.2-1.0) 0.4 mg/dL (0.2-1.0) Aspartate Amino Transf (AST/SGOT) 13 U/L (15-37) 13 U/L (15-37) Alanine Aminotransferase (ALT/SGPT) 17 U/L (16-63) 16 U/L (16-63) Alkaline Phosphatase 45 U/L (46-116) 43 U/L (46-116) Total Protein 7.2 g/dL (6.4-8.2) 6.6 g/dL (6.4-8.2) Albumin 3.8 g/dL (3.4-5.0) 3.6 g/dL (3.4-5.0) Albumin/Globulin Ratio 1.1 (1.0-1.7) 1.2 (1.0-1.7) Laboratory Tests Test 06/26/19 08:05 White Blood Count 6.1 x10^3/uL (4.0-11.0) Red Blood Count 2.64 x10^6/uL (4.30-5.70) Hemoglobin 9.3 g/dL (13.0-17.5) Hematocrit 26.7 % (39.0-53.0) Mean Corpuscular Volume 101 fL (79-100) Mean Corpuscular Hemoglobin 35 pg (25-35) Mean Corpuscular Hemoglobin Concent 35 g/dL (31-37) Red Cell Distribution Width 15.5 % (11.5-14.5) Platelet Count 164 x10^3/uL (140-400) Neutrophils (%) (Auto) 67 % (31-73) Lymphocytes (%) (Auto) 22 % (24-48) Monocytes (%) (Auto) 9 % (0-9) Eosinophils (%) (Auto) 2 % (0-3) Basophils (%) (Auto) 1 % (0-3) Neutrophils # (Auto) 4.1 x10^3/uL (1.8-7.7) Lymphocytes # (Auto) 1.4 x10^3/uL (1.0-4.8) Monocytes # (Auto) 0.5 x10^3/uL (0.0-1.1) Eosinophils # (Auto) 0.1 x10^3/uL (0.0-0.7) Basophils # (Auto) 0.0 x10^3/uL (0.0-0.2) Sodium Level 141 mmol/L (136-145) Potassium Level 4.6 mmol/L (3.5-5.1) Chloride Level 104 mmol/L (98-107) Carbon Dioxide Level 29 mmol/L (21-32) Anion Gap 8 (6-14) Blood Urea Nitrogen 39 mg/dL (8-26) Creatinine 1.4 mg/dL (0.7-1.3) Estimated GFR (Cockcroft-Gault) 47.9 BUN/Creatinine Ratio 28 (6-20) Glucose Level 105 mg/dL (70-99) Calcium Level 9.0 mg/dL (8.5-10.1) Total Bilirubin 0.4 mg/dL (0.2-1.0) Aspartate Amino Transf (AST/SGOT) 13 U/L (15-37) Alanine Aminotransferase (ALT/SGPT) 16 U/L (16-63) Alkaline Phosphatase 43 U/L (46-116) Total Protein 6.6 g/dL (6.4-8.2) Albumin 3.6 g/dL (3.4-5.0) Albumin/Globulin Ratio 1.2 (1.0-1.7) Medications Current Medications Aspirin (Ecotrin) 81 mg DAILY08 PO Last administered on 06/25/19at 08:43; Start 06/19/19 at 08:00 Acetaminophen/ Hydrocodone Bitart (Lortab 5/325) 1 tab PRN QID PRN PO PAIN; Start 06/18/19 at 15:00; Stop 06/18/19 at 15:10; Status DC Lisinopril (Prinivil) 5 mg HS PO Last administered on 06/21/19at 21:24; Start 06/18/19 at 21:00; Stop 06/22/19 at 08:16; Status DC Sennosides (Senna) 8.6 mg BID PO Last administered on 06/25/19at 22:28; Start 06/18/19 at 21:00 Tamsulosin HCl (Flomax) 0.4 mg DAILY PO ; Start 06/19/19 at 09:00; Stop 06/18/19 at 20:00; Status DC Calcium Carbonate/ Glycine (Tums) 500 mg PRN AFTMEALHC PRN PO INDIGESTION; Start 06/18/19 at 15:00 Ondansetron HCl (Zofran) 4 mg PRN Q6HRS PRN IVP NAUSEA/VOMITING; Start 06/18/19 at 15:00 Temazepam (Restoril) 7.5 mg PRN QHS PRN PO INSOMNIA; Start 06/18/19 at 15:00 Clonidine HCl (Catapres) 0.1 mg PRN Q1HR PRN PO HYPERTENSION; Start 06/18/19 at 15:00 Albuterol Sulfate (Ventolin Neb Soln) 2.5 mg PRN Q4HRS PRN NEB SHORTNESS OF BREATH Last administered on 06/21/19at 15:50; Start 06/18/19 at 15:00 Guaifenesin/ Codeine Phosphate (Robitussin Ac) 5 ml PRN Q6HRS PRN PO COUGH; Start 06/18/19 at 15:00 Acetaminophen/ Hydrocodone Bitart (Lortab 5/325) 1 tab PRN Q4HRS PRN PO PAIN Last administered on 06/19/19at 08:51; Start 06/18/19 at 15:00; Stop 06/19/19 at 10:33; Status DC Sodium Chloride 1,000 ml @ 75 mls/hr 1X ONCE IV Last administered on 06/18/19at 20:26; Start 06/18/19 at 15:00; Stop 06/19/19 at 04:19; Status DC Memantine (Namenda) 10 mg BID PO Last administered on 06/25/19at 22:29; Start 06/18/19 at 21:00 Donepezil HCl (Aricept) 5 mg DAILY PO Last administered on 06/25/19at 08:43; Start 06/19/19 at 09:00 Multivitamins (Thera M Plus) 1 tab DAILY PO Last administered on 06/25/19at 08:43; Start 06/19/19 at 09:00 Vitamin B Complex (Folbic Tablet) 1 tab DAILY PO Last administered on 06/25/19at 08:43; Start 06/19/19 at 09:00 Quetiapine Fumarate (SEROquel) 25 mg BID PO Last administered on 06/25/19 22:28; Start 06/18/19 at 21:00 Vitamin D (Vitamin D3) 1,000 unit DAILY PO Last administered on 06/25/19 08:43; Start 06/19/19 at 09:00 Prednisone (Prednisone) 10 mg DAILY PO Last administered on 06/25/19 08:43; Start 06/19/19 at 10:30 Pantoprazole Sodium (Protonix) 40 mg DAILYAC PO Last administered on 06/26/19 06:09; Start 06/19/19 at 10:30 Tizanidine HCl (Zanaflex) 4 mg PRN Q8HRS PRN PO MUSCLE SPASMS Last administered on 06/24/19 20:49; Start 06/19/19 at 10:30 Acetaminophen/ Hydrocodone Bitart (Lortab 10/325) 1 tab PRN Q6HRS PRN PO MODERATE PAIN Last administered on 06/24/19at 03:52; Start 06/19/19 at 10:30 Oxycodone/ Acetaminophen (Percocet 10/325) 1 tab PRN Q4HRS PRN PO SEVERE PAIN Last administered on 06/26/19 05:06; Start 06/20/19 at 12:30 Polysaccharide Iron Complex (Niferex 150) 150 mg BID PO Last administered on 06/25/19 22:29; Start 06/21/19 at 21:00 Lisinopril (Prinivil) 10 mg QHS PO Last administered on 06/25/19at 22:28; Start 06/22/19 at 21:00 Methylprednisolone Acetate (DEPO-Medrol 40MG VIAL) 40 mg 1X ONCE IM ; Start 06/23/19 at 13:00; Stop 06/23/19 at 13:01; Status DC Bupivacaine HCl (Sensorcaine-Mpf 0.25%) 10 ml 1X ONCE IJ ; Start 06/23/19 at 13:00; Stop 06/23/19 at 13:01; Status DC Diazepam (Valium) 5 mg OC PROC PRN PO PRE -MRI X1 Last administered on 06/23/19at 14:16; Start 06/23/19 at 13:15; Stop 06/24/19 at 13:14; Status DC Morphine Sulfate (Morphine Sulfate) 4 mg OC PROC PRN IM PRE-MRI X1 Last administered on 06/23/19at 15:02; Start 06/23/19 at 13:00; Stop 06/24/19 at 12:59; Status DC Methylprednisolone Acetate (DEPO-Medrol 40MG VIAL) 40 mg STK-MED ONCE .ROUTE ; Start 06/25/19 at 12:51; Stop 06/25/19 at 12:52; Status DC Iohexol (Omnipaque 180 Mg/ml) 10 ml STK-MED ONCE .ROUTE ; Start 06/25/19 at 12:52; Stop 06/25/19 at 12:52; Status DC Methylprednisolone Acetate (DEPO-Medrol 80MG VIAL) 80 mg STK-MED ONCE .ROUTE ; Start 06/25/19 at 12:52; Stop 06/25/19 at 12:52; Status DC Active Scripts Active Lisinopril 10 Mg Tablet 1 Tab PO DAILY Thera-M Tablet (Multivits,Ca,Minerals/Iron/Fa) 1 Each Tablet 1 Tab PO DAILY Folbic Tablet (Cyanocobalamin/Fa/Pyridoxine) 1 Each Tablet 1 Tab PO DAILY Prednisone (Prednisone) 10 Mg Tablet 10 Mg PO DAILY 4 Days [guaiFENesin/CODEINE 100mg/10mg] 5 ML Liquid 5 Ml PO PRN Q6HRS PRN 10 Days Proair Hfa (Albuterol Sulfate) 8.5 Gm Hfa.aer.ad 2.5 Mg NEB PRN Q4HRS PRN 30 Days Tizanidine Hcl 4 Mg Tablet 4 Mg PO PRN Q8HRS PRN Hydrocodone-Apap 5-325 (Hydrocodone Bit/Acetaminophen) 1 Each Tablet 1 Tab PO PRN Q4-6HRS PRN Reported Namenda (Memantine Hcl) 10 Mg Tablet 1 Tab PO BID Vitamin D3 (Cholecalciferol (Vitamin D3)) 1,000 Unit Tablet 1 Tab PO DAILY Donepezil Hcl 10 Mg Tablet 1 Tab PO DAILY Seroquel (Quetiapine Fumarate) 25 Mg Tablet 25 Mg PO BID Senokot (Sennosides) 8.6 Mg Tablet 1 Tab PO BID Aspir 81 (Aspirin) 81 Mg Tablet. 81 Mg PO DAILY08 Lisinopril 5 Mg Tablet 5 Mg PO HS Vitals/I & O Vital Sign - Last 24 Hours 06/25/19 06/25/19 06/25/19 06/25/19 11:00 15:00 19:35 19:50 Temp 97.6 97.7 97.7 97.6 97.7 97.7 Pulse 57 55 65 Resp 16 18 16 B/P (MAP) 102/58 (73) 144/76 (98) 137/75 (95) Pulse Ox 96 95 97 O2 Delivery Room Air Room Air Room Air Room Air 06/25/19 06/25/19 06/26/19 06/26/19 22:28 23:50 03:55 05:06 Temp 97.5 97.8 97.5 97.8 Pulse 65 66 71 Resp 16 17 B/P (MAP) 137/75 139/86 (103) 148/84 (105) Pulse Ox 97 97 O2 Delivery Room Air Room Air Room Air 06/26/19 06/26/19 06:06 07:00 Temp 97.6 97.6 Pulse 63 Resp 16 B/P (MAP) 149/62 (91) Pulse Ox 95 O2 Delivery Room Air Room Air Intake and Output 06/25/19 06/25/19 06/26/19 15:00 23:00 07:00 Intake Total 520 ml 200 ml 350 ml Output Total 200 ml 200 ml Balance 520 ml 0 ml 150 ml JASPREET HO MD Jun 26, 2019 10:42
[2019-06-26 11:00] VITALS: BP 107/66
[2019-06-26] MEDS: SENNOSIDES 8.6 MG TABLET PO SCH ×2 (11:44→20:54)
[2019-06-26] MEDS: ASPIRIN ENTERIC COATED 81 MG TABLET.DR. PO SCH (11:44)
[2019-06-26] MEDS: QUEtiapine 25 MG TABLET. PO SCH ×2 (11:44→20:54)
[2019-06-26] MEDS: CHOLECALCIFEROL (VITAMIN D3) 1,000 UNIT TABLET PO SCH (11:44)
[2019-06-26] MEDS: MULTIVITAMIN with MINERAL TABLET. PO SCH (11:44)
[2019-06-26] MEDS: predniSONE 10 MG TABLET PO SCH (11:44)
[2019-06-26] MEDS: VITAMIN B12,B9,B6 COMPLEX 1 TABLET. PO SCH (11:44)
[2019-06-26] MEDS: IRON POLYSACCHARIDE COMPLEX 150 MG CAPSULE PO SCH ×2 (11:44→20:54)
[2019-06-26] MEDS: DONEPEZIL HCL 5 MG TABLET. PO SCH (11:44)
[2019-06-26] MEDS: MEMANTINE 10 MG TABLET. PO SCH ×2 (11:44→20:54)
[2019-06-26 15:00] VITALS: BP 148/71
[2019-06-26 19:00] VITALS: BP 115/49
[2019-06-26] MEDS: LISINOPRIL 10 MG TABLET PO SCH (20:56)
[2019-06-26 23:00] VITALS: BP 109/60
[2019-06-27 03:00] VITALS: BP 115/63
[2019-06-27 07:00] VITALS: BP 133/73
[2019-06-27] MEDS: predniSONE 10 MG TABLET PO SCH (08:23)
[2019-06-27] MEDS: QUEtiapine 25 MG TABLET. PO SCH ×2 (08:23→20:55)
[2019-06-27] MEDS: MEMANTINE 10 MG TABLET. PO SCH ×2 (08:23→20:55)
[2019-06-27] MEDS: VITAMIN B12,B9,B6 COMPLEX 1 TABLET. PO SCH (08:23)
[2019-06-27] MEDS: CHOLECALCIFEROL (VITAMIN D3) 1,000 UNIT TABLET PO SCH (08:23)
[2019-06-27] MEDS: PANTOPRAZOLE 40 MG TABLET.DR. PO SCH (08:23)
[2019-06-27] MEDS: DONEPEZIL HCL 5 MG TABLET. PO SCH (08:24)
[2019-06-27] MEDS: IRON POLYSACCHARIDE COMPLEX 150 MG CAPSULE PO SCH ×2 (08:24→20:55)
[2019-06-27] MEDS: MULTIVITAMIN with MINERAL TABLET. PO SCH (08:24)
[2019-06-27] MEDS: ASPIRIN ENTERIC COATED 81 MG TABLET.DR. PO SCH (08:24)
[2019-06-27] MEDS: SENNOSIDES 8.6 MG TABLET PO SCH ×2 (08:24→20:55)
--- NOTE | 2019-06-27 09:57 | PDOC ---
PROGRESS NOTES Chief Complaint Chief Complaint 1. Scitaica, myalgia s.p LESI 06.25.19 2. Dementia - good iadls - on meds 3. GEn weakness - [facility] 4. HTN - with chronic diastolic CHF 5. BPH - prev on flomax- 6. HX left shoulder arthroplasty - as seen on CXR FULL CODE History of Present Illness History of Present Illness seems to be better post LESI by pain clinic on 06/25/19 SLated for [facility] but insurance has to auth - i updated pt re this PLAN: [facility] tmr when insurance authorizes CPM FUll code I have met he son - he came from home and lives alone but son lives a block away Vitals Vitals Vital Signs Date Time Temp Pulse Resp B/P (MAP) Pulse Ox O2 Delivery O2 Flow Rate FiO2 06/27/19 07:00 98.7 69 18 133/73 (93) 96 Room Air 98.7 Physical Exam General: Alert, Cooperative, No acute distress Heart: Regular rate Lungs: Clear, Crackles Abdomen: Normal bowel sounds, Soft Extremities: Other (1+ pitting pedal edema) Skin: No rashes, No breakdown, No significant lesion Review of Systems Review of Systems weak, tolerable rt butt/leg pain, all else neg 14 pt Assessment and Plan Assessmemt and Plan Problems Medical Problems: (1) Short of breath on exertion Status: Acute Comment Review of Relevant I have reviewed the following items get (where applicable) has been applied. Labs Laboratory Tests Test 06/26/19 08:05 White Blood Count 6.1 x10^3/uL (4.0-11.0) Red Blood Count 2.64 x10^6/uL (4.30-5.70) Hemoglobin 9.3 g/dL (13.0-17.5) Hematocrit 26.7 % (39.0-53.0) Mean Corpuscular Volume 101 fL (79-100) Mean Corpuscular Hemoglobin 35 pg (25-35) Mean Corpuscular Hemoglobin Concent 35 g/dL (31-37) Red Cell Distribution Width 15.5 % (11.5-14.5) Platelet Count 164 x10^3/uL (140-400) Neutrophils (%) (Auto) 67 % (31-73) Lymphocytes (%) (Auto) 22 % (24-48) Monocytes (%) (Auto) 9 % (0-9) Eosinophils (%) (Auto) 2 % (0-3) Basophils (%) (Auto) 1 % (0-3) Neutrophils # (Auto) 4.1 x10^3/uL (1.8-7.7) Lymphocytes # (Auto) 1.4 x10^3/uL (1.0-4.8) Monocytes # (Auto) 0.5 x10^3/uL (0.0-1.1) Eosinophils # (Auto) 0.1 x10^3/uL (0.0-0.7) Basophils # (Auto) 0.0 x10^3/uL (0.0-0.2) Sodium Level 141 mmol/L (136-145) Potassium Level 4.6 mmol/L (3.5-5.1) Chloride Level 104 mmol/L (98-107) Carbon Dioxide Level 29 mmol/L (21-32) Anion Gap 8 (6-14) Blood Urea Nitrogen 39 mg/dL (8-26) Creatinine 1.4 mg/dL (0.7-1.3) Estimated GFR (Cockcroft-Gault) 47.9 BUN/Creatinine Ratio 28 (6-20) Glucose Level 105 mg/dL (70-99) Calcium Level 9.0 mg/dL (8.5-10.1) Total Bilirubin 0.4 mg/dL (0.2-1.0) Aspartate Amino Transf (AST/SGOT) 13 U/L (15-37) Alanine Aminotransferase (ALT/SGPT) 16 U/L (16-63) Alkaline Phosphatase 43 U/L (46-116) Total Protein 6.6 g/dL (6.4-8.2) Albumin 3.6 g/dL (3.4-5.0) Albumin/Globulin Ratio 1.2 (1.0-1.7) Medications Current Medications Aspirin (Ecotrin) 81 mg DAILY08 PO Last administered on 06/27/19at 08:24; Start 06/19/19 at 08:00 Acetaminophen/ Hydrocodone Bitart (Lortab 5/325) 1 tab PRN QID PRN PO PAIN; Start 06/18/19 at 15:00; Stop 06/18/19 at 15:10; Status DC Lisinopril (Prinivil) 5 mg HS PO Last administered on 06/21/19at 21:24; Start 06/18/19 at 21:00; Stop 06/22/19 at 08:16; Status DC Sennosides (Senna) 8.6 mg BID PO Last administered on 06/27/19at 08:24; Start 06/18/19 at 21:00 Tamsulosin HCl (Flomax) 0.4 mg DAILY PO ; Start 06/19/19 at 09:00; Stop 06/18/19 at 20:00; Status DC Calcium Carbonate/ Glycine (Tums) 500 mg PRN AFTMEALHC PRN PO INDIGESTION; Start 06/18/19 at 15:00 Ondansetron HCl (Zofran) 4 mg PRN Q6HRS PRN IVP NAUSEA/VOMITING; Start 06/18/19 at 15:00 Temazepam (Restoril) 7.5 mg PRN QHS PRN PO INSOMNIA; Start 06/18/19 at 15:00 Clonidine HCl (Catapres) 0.1 mg PRN Q1HR PRN PO HYPERTENSION; Start 06/18/19 at 15:00 Albuterol Sulfate (Ventolin Neb Soln) 2.5 mg PRN Q4HRS PRN NEB SHORTNESS OF BREATH Last administered on 06/21/19at 15:50; Start 06/18/19 at 15:00 Guaifenesin/ Codeine Phosphate (Robitussin Ac) 5 ml PRN Q6HRS PRN PO COUGH; Start 06/18/19 at 15:00 Acetaminophen/ Hydrocodone Bitart (Lortab 5/325) 1 tab PRN Q4HRS PRN PO PAIN Last administered on 06/19/19at 08:51; Start 06/18/19 at 15:00; Stop 06/19/19 at 10:33; Status DC Sodium Chloride 1,000 ml @ 75 mls/hr 1X ONCE IV Last administered on 06/18/19at 20:26; Start 06/18/19 at 15:00; Stop 06/19/19 at 04:19; Status DC Memantine (Namenda) 10 mg BID PO Last administered on 06/27/19at 08:23; Start 06/18/19 at 21:00 Donepezil HCl (Aricept) 5 mg DAILY PO Last administered on 06/27/19 08:24; Start 06/19/19 at 09:00 Multivitamins (Thera M Plus) 1 tab DAILY PO Last administered on 06/27/19 08:24; Start 06/19/19 at 09:00 Vitamin B Complex (Folbic Tablet) 1 tab DAILY PO Last administered on 06/27/19 08:23; Start 06/19/19 at 09:00 Quetiapine Fumarate (SEROquel) 25 mg BID PO Last administered on 06/27/19 08:23; Start 06/18/19 at 21:00 Vitamin D (Vitamin D3) 1,000 unit DAILY PO Last administered on 06/27/19 08:23; Start 06/19/19 at 09:00 Prednisone (Prednisone) 10 mg DAILY PO Last administered on 06/27/19 08:23; Start 06/19/19 at 10:30 Pantoprazole Sodium (Protonix) 40 mg DAILYAC PO Last administered on 06/27/19 08:23; Start 06/19/19 at 10:30 Tizanidine HCl (Zanaflex) 4 mg PRN Q8HRS PRN PO MUSCLE SPASMS Last administered on 06/24/19 20:49; Start 06/19/19 at 10:30 Acetaminophen/ Hydrocodone Bitart (Lortab 10/325) 1 tab PRN Q6HRS PRN PO MODERATE PAIN Last administered on 06/24/19 03:52; Start 06/19/19 at 10:30 Oxycodone/ Acetaminophen (Percocet 10/325) 1 tab PRN Q4HRS PRN PO SEVERE PAIN Last administered on 06/26/19 14:23; Start 06/20/19 at 12:30 Polysaccharide Iron Complex (Niferex 150) 150 mg BID PO Last administered on 06/27/19 08:24; Start 06/21/19 at 21:00 Lisinopril (Prinivil) 10 mg QHS PO Last administered on 06/26/19 20:56; Start 06/22/19 at 21:00 Methylprednisolone Acetate (DEPO-Medrol 40MG VIAL) 40 mg 1X ONCE IM ; Start 06/23/19 at 13:00; Stop 06/23/19 at 13:01; Status DC Bupivacaine HCl (Sensorcaine-Mpf 0.25%) 10 ml 1X ONCE IJ ; Start 06/23/19 at 13:00; Stop 06/23/19 at 13:01; Status DC Diazepam (Valium) 5 mg OC PROC PRN PO PRE -MRI X1 Last administered on 06/23/19at 14:16; Start 06/23/19 at 13:15; Stop 06/24/19 at 13:14; Status DC Morphine Sulfate (Morphine Sulfate) 4 mg OC PROC PRN IM PRE-MRI X1 Last administered on 06/23/19at 15:02; Start 06/23/19 at 13:00; Stop 06/24/19 at 12:59; Status DC Methylprednisolone Acetate (DEPO-Medrol 40MG VIAL) 40 mg STK-MED ONCE .ROUTE ; Start 06/25/19 at 12:51; Stop 06/25/19 at 12:52; Status DC Iohexol (Omnipaque 180 Mg/ml) 10 ml STK-MED ONCE .ROUTE ; Start 06/25/19 at 12:5 2; Stop 06/25/19 at 12:52; Status DC Methylprednisolone Acetate (DEPO-Medrol 80MG VIAL) 80 mg STK-MED ONCE .ROUTE ; Start 06/25/19 at 12:52; Stop 06/25/19 at 12:52; Status DC Active Scripts Active Lisinopril 10 Mg Tablet 1 Tab PO DAILY Thera-M Tablet (Multivits,Ca,Minerals/Iron/Fa) 1 Each Tablet 1 Tab PO DAILY Folbic Tablet (Cyanocobalamin/Fa/Pyridoxine) 1 Each Tablet 1 Tab PO DAILY Prednisone (Prednisone) 10 Mg Tablet 10 Mg PO DAILY 4 Days [guaiFENesin/CODEINE 100mg/10mg] 5 ML Liquid 5 Ml PO PRN Q6HRS PRN 10 Days Proair Hfa (Albuterol Sulfate) 8.5 Gm Hfa.aer.ad 2.5 Mg NEB PRN Q4HRS PRN 30 Days Tizanidine Hcl 4 Mg Tablet 4 Mg PO PRN Q8HRS PRN Hydrocodone-Apap 5-325 (Hydrocodone Bit/Acetaminophen) 1 Each Tablet 1 Tab PO PRN Q4-6HRS PRN Reported Namenda (Memantine Hcl) 10 Mg Tablet 1 Tab PO BID Vitamin D3 (Cholecalciferol (Vitamin D3)) 1,000 Unit Tablet 1 Tab PO DAILY Donepezil Hcl 10 Mg Tablet 1 Tab PO DAILY Seroquel (Quetiapine Fumarate) 25 Mg Tablet 25 Mg PO BID Senokot (Sennosides) 8.6 Mg Tablet 1 Tab PO BID Aspir 81 (Aspirin) 81 Mg Tablet.dr 81 Mg PO DAILY08 Lisinopril 5 Mg Tablet 5 Mg PO HS Vitals/I & O Vital Sign - Last 24 Hours 06/26/19 06/26/19 06/26/19 06/26/19 11:00 14:23 15:00 17:12 Temp 97.8 98.0 97.8 98.0 Pulse 65 93 Resp 18 16 B/P (MAP) 107/66 (80) 148/71 (96) Pulse Ox 97 97 95 95 O2 Delivery Room Air Room Air Room Air Room Air 06/26/19 06/26/19 06/26/19 06/26/19 19:00 20:30 20:56 23:00 Temp 98.6 98.5 98.6 98.5 Pulse 59 59 53 Resp 18 18 B/P (MAP) 115/49 (71) 110/60 109/60 (76) Pulse Ox 95 95 O2 Delivery Room Air Room Air Room Air 06/27/19 06/27/19 03:00 07:00 Temp 98.5 98.7 98.5 98.7 Pulse 55 69 Resp 18 18 B/P (MAP) 115/63 (80) 133/73 (93) Pulse Ox 96 96 O2 Delivery Room Air Room Air Intake and Output 06/26/19 06/26/19 06/27/19 15:00 23:00 07:00 Output Total 300 ml Balance -300 ml FERMIN MONTANA MD Jun 27, 2019 09:57
[2019-06-27 11:00] VITALS: BP 119/65
[2019-06-27 15:00] VITALS: BP 131/94
[2019-06-27 19:00] VITALS: BP 110/56
[2019-06-27] MEDS: LISINOPRIL 10 MG TABLET PO SCH (20:56)
[2019-06-27] MEDS: oxyCODONE/APAP 10/325 1 TAB TABLET PO PRN (21:49)
[2019-06-27 23:06] VITALS: BP 140/74
[2019-06-28 03:00] VITALS: BP 110/54
[2019-06-28 07:00] VITALS: BP 150/76
[2019-06-28] MEDS: CHOLECALCIFEROL (VITAMIN D3) 1,000 UNIT TABLET PO SCH (07:53)
[2019-06-28] MEDS: MEMANTINE 10 MG TABLET. PO SCH (07:53)
[2019-06-28] MEDS: VITAMIN B12,B9,B6 COMPLEX 1 TABLET. PO SCH (07:53)
[2019-06-28] MEDS: predniSONE 10 MG TABLET PO SCH (07:53)
[2019-06-28] MEDS: QUEtiapine 25 MG TABLET. PO SCH (07:53)
[2019-06-28] MEDS: DONEPEZIL HCL 5 MG TABLET. PO SCH (07:53)
[2019-06-28] MEDS: PANTOPRAZOLE 40 MG TABLET.DR. PO SCH (07:53)
[2019-06-28] MEDS: ASPIRIN ENTERIC COATED 81 MG TABLET.DR. PO SCH (07:53)
[2019-06-28] MEDS: IRON POLYSACCHARIDE COMPLEX 150 MG CAPSULE PO SCH (07:54)
[2019-06-28] MEDS: SENNOSIDES 8.6 MG TABLET PO SCH (07:54)
[2019-06-28] MEDS: MULTIVITAMIN with MINERAL TABLET. PO SCH (07:54)
--- NOTE | 2019-06-28 07:58 | SNU/HH DC ---
DISCHARGE ORDERS DISCHARGE INFORMATION: DISCHARGE DATE: Jun 28, 2019 FINAL DIAGNOSIS Problems Medical Problems: (1) Short of breath on exertion Status: Acute CONDITION ON DISCHARGE: Stable CODE STATUS: Code Status: Full ASSISTED: SNF STAY <30 DAYS: Yes HOSPICE: HOSPICE: No HOSPICE EVAL & TREAT: No LTAC: ADMIT TO LTAC: No POST DISCHARGE ORDERS: ACTIVITY ORDERS: Activity as tolerated, Avoid exertion WEIGHT BEARING STATUS: No restrictions BATHING ORDERS: Shower-keep dressing dry DIET AFTER DISCHARGE: Cardiac WOUND/INCISION CARE: Ice to area for comfort, Keep wound elevated, Do not change dressing CHECKS AFTER DISCHARGE: CHECKS AFTER DISCHARGE: Check blood press - daily FOLLOW-UP: PHYSICIAN FOLLOW-UP: pcp upon snu dc TREATMENT/EQUIPMENT ORDERS: ADAPTIVE EQUIPMENT NEEDED: None Physical Therapy For: Evalulation/Treatment Occupational Therapy For: Evaluation/Treatment DISCHARGE MEDICATIONS: Home Meds Active Scripts Lisinopril (LISINOPRIL) 10 Mg Tablet, 1 TAB PO DAILY for htn, #30 TAB 5 Refills Prov:FERMIN MONTANA MD 06/22/19 Multivits,Ca,Minerals/Iron/Fa (THERA-M TABLET) 1 Each Tablet, 1 TAB PO DAILY for mvi, #30 TAB Prov:FERMIN MONATNA MD 06/21/19 Cyanocobalamin/Fa/Pyridoxine (FOLBIC TABLET) 1 Each Tablet, 1 TAB PO DAILY for mvi, #30 TAB Prov:FERMIN MONTANA MD 06/21/19 Prednisone (PREDNISONE ) 10 Mg Tablet, 10 MG PO DAILY for sciatica for 4 Days, #4 TAB Prov:FERMIN MONTANA MD 06/21/19 [guaiFENesin/CODEINE 100mg/10mg] 5 ML LIQUID No Conflict Check, 5 ML PO PRN Q6HRS PRN for COUGH for 10 Days Prov:FERMIN MONTANA MD 06/21/19 Albuterol Sulfate (Proair Hfa) 8.5 Gm Hfa.aer.ad, 2.5 MG NEB PRN Q4HRS PRN for SHORTNESS OF BREATH for 30 Days, INHALER Prov:FERMIN MONTANA MD 06/21/19 Tizanidine Hcl (TIZANIDINE HCL) 4 Mg Tablet, 4 MG PO PRN Q8HRS PRN for MUSCLE SP ASMS, #30 TAB Prov:FERMIN MONTANA MD 06/21/19 Hydrocodone Bit/Acetaminophen (HYDROCODONE-APAP 5-325 ) 1 Each Tablet, 1 TAB PO PRN Q4-6HRS PRN for PAIN, #20 TAB 0 Refills Prov:FERMIN MONTANA MD 06/21/19 Reported Medications Memantine Hcl (NAMENDA) 10 Mg Tablet, 1 TAB PO BID for Alzheimers, #180 TAB 1 Refill 06/18/19 Cholecalciferol (Vitamin D3) (VITAMIN D3) 1,000 Unit Tablet, 1 TAB PO DAILY for ukn, #30 TAB 5 Refills 06/18/19 Donepezil Hcl (DONEPEZIL HCL) 10 Mg Tablet, 1 TAB PO DAILY for ukn, #90 TAB 1 Refill 06/18/19 Quetiapine Fumarate (SEROQUEL) 25 Mg Tablet, 25 MG PO BID for depression, TAB 06/18/19 Sennosides (SENOKOT) 8.6 Mg Tablet, 1 TAB PO BID, #40 TAB 01/08/17 Aspirin (ASPIR 81) 81 Mg Tablet.dr, 81 MG PO DAILY08 07/29/13 Lisinopril (LISINOPRIL) 5 Mg Tablet, 5 MG PO HS 07/29/13 FERMIN MONTANA MD Jun 28, 2019 07:58
--- NOTE | 2019-06-28 09:51 | PDOC ---
PROGRESS NOTES Subjective Subjective He admits pain in his right knee,while up walking to bathroom this AM. 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 Hes back pain is under control at this time. Assessment Assessment Problems Medical Problems: (1) Short of breath on exertion Status: Acute Plan Plan of Care To SNF when medically stable. Comment Review of Relevant I have reviewed the following items get (where applicable) has been applied. Medications Current Medications Aspirin (Ecotrin) 81 mg DAILY08 PO Last administered on 06/28/19at 07:53; Start 06/19/19 at 08:00 Acetaminophen/ Hydrocodone Bitart (Lortab 5/325) 1 tab PRN QID PRN PO PAIN; Start 06/18/19 at 15:00; Stop 06/18/19 at 15:10; Status DC Lisinopril (Prinivil) 5 mg HS PO Last administered on 06/21/19at 21:24; Start 06/18/19 at 21:00; Stop 06/22/19 at 08:16; Status DC Sennosides (Senna) 8.6 mg BID PO Last administered on 06/28/19at 07:54; Start 06/18/19 at 21:00 Tamsulosin HCl (Flomax) 0.4 mg DAILY PO ; Start 06/19/19 at 09:00; Stop 06/18/19 at 20:00; Status DC Calcium Carbonate/ Glycine (Tums) 500 mg PRN AFTMEALHC PRN PO INDIGESTION; Start 06/18/19 at 15:00 Ondansetron HCl (Zofran) 4 mg PRN Q6HRS PRN IVP NAUSEA/VOMITING; Start 06/18/19 at 15:00 Temazepam (Restoril) 7.5 mg PRN QHS PRN PO INSOMNIA; Start 06/18/19 at 15:00 Clonidine HCl (Catapres) 0.1 mg PRN Q1HR PRN PO HYPERTENSION; Start 06/18/19 at 15:00 Albuterol Sulfate (Ventolin Neb Soln) 2.5 mg PRN Q4HRS PRN NEB SHORTNESS OF BREATH Last administered on 06/21/19at 15:50; Start 06/18/19 at 15:00 Guaifenesin/ Codeine Phosphate (Robitussin Ac) 5 ml PRN Q6HRS PRN PO COUGH; Start 06/18/19 at 15:00 Acetaminophen/ Hydrocodone Bitart (Lortab 5/325) 1 tab PRN Q4HRS PRN PO PAIN Last administered on 06/19/19 08:51; Start 06/18/19 at 15:00; Stop 06/19/19 at 10:33; Status DC Sodium Chloride 1,000 ml @ 75 mls/hr 1X ONCE IV Last administered on 06/18/19 20:26; Start 06/18/19 at 15:00; Stop 06/19/19 at 04:19; Status DC Memantine (Namenda) 10 mg BID PO Last administered on 06/28/19 07:53; Start 06/18/19 at 21:00 Donepezil HCl (Aricept) 5 mg DAILY PO Last administered on 06/28/19 07:53; Start 06/19/19 at 09:00 Multivitamins (Thera M Plus) 1 tab DAILY PO Last administered on 06/28/19 07:54; Start 06/19/19 at 09:00 Vitamin B Complex (Folbic Tablet) 1 tab DAILY PO Last administered on 06/28/19 07:53; Start 06/19/19 at 09:00 Quetiapine Fumarate (SEROquel) 25 mg BID PO Last administered on 06/28/19 07:53; Start 06/18/19 at 21:00 Vitamin D (Vitamin D3) 1,000 unit DAILY PO Last administered on 06/28/19 07:53; Start 06/19/19 at 09:00 Prednisone (Prednisone) 10 mg DAILY PO Last administered on 06/28/19 07:53; Start 06/19/19 at 10:30 Pantoprazole Sodium (Protonix) 40 mg DAILYAC PO Last administered on 06/28/19 07:53; Start 06/19/19 at 10:30 Tizanidine HCl (Zanaflex) 4 mg PRN Q8HRS PRN PO MUSCLE SPASMS Last administered on 06/24/19at 20:49; Start 06/19/19 at 10:30 Acetaminophen/ Hydrocodone Bitart (Lortab 10/325) 1 tab PRN Q6HRS PRN PO MODERATE PAIN Last administered on 06/24/19 03:52; Start 06/19/19 at 10:30 Oxycodone/ Acetaminophen (Percocet 10/325) 1 tab PRN Q4HRS PRN PO SEVERE PAIN Last administered on 06/27/19 21:49; Start 06/20/19 at 12:30 Polysaccharide Iron Complex (Niferex 150) 150 mg BID PO Last administered on 06/28/19 07:54; Start 06/21/19 at 21:00 Lisinopril (Prinivil) 10 mg QHS PO Last administered on 06/27/19 20:56; Start 06/22/19 at 21:00 Methylprednisolone Acetate (DEPO-Medrol 40MG VIAL) 40 mg 1X ONCE IM ; Start 06/23/19 at 13:00; Stop 06/23/19 at 13:01; Status DC Bupivacaine HCl (Sensorcaine-Mpf 0.25%) 10 ml 1X ONCE IJ ; Start 06/23/19 at 13:00; Stop 06/23/19 at 13:01; Status DC Diazepam (Valium) 5 mg OC PROC PRN PO PRE -MRI X1 Last administered on 1 at 14:16; Start 06/23/19 at 13:15; Stop 06/24/19 at 13:14; Status DC Morphine Sulfate (Morphine Sulfate) 4 mg OC PROC PRN IM PRE-MRI X1 Last administered on 06/23/19at 15:02; Start 06/23/19 at 13:00; Stop 06/24/19 at 12:59; Status DC Methylprednisolone Acetate (DEPO-Medrol 40MG VIAL) 40 mg STK-MED ONCE .ROUTE ; Start 06/25/19 at 12:51; Stop 06/25/19 at 12:52; Status DC Iohexol (Omnipaque 180 Mg/ml) 10 ml STK-MED ONCE .ROUTE ; Start 06/25/19 at 12:52; Stop 06/25/19 at 12:52; Status DC Methylprednisolone Acetate (DEPO-Medrol 80MG VIAL) 80 mg STK-MED ONCE .ROUTE ; Start 06/25/19 at 12:52; Stop 06/25/19 at 12:52; Status DC Active Scripts Active Lisinopril 10 Mg Tablet 1 Tab PO DAILY Thera-M Tablet (Multivits,Ca,Minerals/Iron/Fa) 1 Each Tablet 1 Tab PO DAILY Folbic Tablet (Cyanocobalamin/Fa/Pyridoxine) 1 Each Tablet 1 Tab PO DAILY Prednisone (Prednisone) 10 Mg Tablet 10 Mg PO DAILY 4 Days [guaiFENesin/CODEINE 100mg/10mg] 5 ML Liquid 5 Ml PO PRN Q6HRS PRN 10 Days Proair Hfa (Albuterol Sulfate) 8.5 Gm Hfa.aer.ad 2.5 Mg NEB PRN Q4HRS PRN 30 Days Tizanidine Hcl 4 Mg Tablet 4 Mg PO PRN Q8HRS PRN Hydrocodone-Apap 5-325 (Hydrocodone Bit/Acetaminophen) 1 Each Tablet 1 Tab PO PRN Q4-6HRS PRN Reported Namenda (Memantine Hcl) 10 Mg Tablet 1 Tab PO BID Vitamin D3 (Cholecalciferol (Vitamin D3)) 1,000 Unit Tablet 1 Tab PO DAILY Donepezil Hcl 10 Mg Tablet 1 Tab PO DAILY Seroquel (Quetiapine Fumarate) 25 Mg Tablet 25 Mg PO BID Senokot (Sennosides) 8.6 Mg Tablet 1 Tab PO BID Aspir 81 (Aspirin) 81 Mg Tablet.dr 81 Mg PO DAILY08 Lisinopril 5 Mg Tablet 5 Mg PO HS Vitals/I & O Vital Sign - Last 24 Hours 06/27/19 06/27/19 06/27/19 06/27/19 11:00 15:00 15:30 19:00 Temp 97.9 97.8 98.2 97.9 97.8 98.2 Pulse 69 119 66 Resp 18 16 14 B/P (MAP) 119/65 (83) 131/94 (106) 110/56 (74) Pulse Ox 100 95 98 94 O2 Delivery Room Air Room Air Room Air Room Air 06/27/19 06/27/19 06/27/19 06/27/19 20:15 20:56 21:49 23:01 Pulse 73 Resp 18 16 B/P (MAP) 116/59 O2 Delivery Room Air Room Air Room Air 06/27/19 06/28/19 06/28/19 06/28/19 23:06 03:00 07:00 08:11 Temp 97.9 98.0 97.5 97.9 98.0 97.5 Pulse 73 72 67 Resp 16 17 18 B/P (MAP) 140/74 (96) 110/54 (72) 150/76 (100) Pulse Ox 96 96 97 O2 Delivery Room Air Room Air Room Air Intake and Output 06/27/19 06/27/19 06/28/19 15:00 23:00 07:00 Intake Total 600 ml Balance 600 ml JASPREET HO MD Jun 28, 2019 09:51
--- NOTE | 2019-06-28 10:53 | PDOC3 ---
Discharge Summary Visit Information Date of Admission: Jun 18, 2019 Date of Discharge: Jun 28, 2019 Admitting Diagnosis Comment: 1. sciatica, possible - s/.p short pred S.p LESI by pain mx (BETTER post LESI) 2. Dementia - good iadls - on meds 3. HTN - 4. BPH - 5. HX left shoulder arthroplasty - as seen on CXR 6. SOA with no CHF 7. Gen weakness, SNU candidate 8 FULL CODE Final Diagnosis Problems Medical Problems: (1) Short of breath on exertion Status: Acute Brief Hospital Course Allergies Allergies Coded Allergies Type Severity Reaction Last Updated Verified Penicillins Allergy Intermediate Hives 01/06/17 Yes celecoxib Allergy Intermediate Swelling 01/06/17 Yes Vital Signs Vital Signs Date Time Temp Pulse Resp B/P (MAP) Pulse Ox O2 Delivery O2 Flow Rate FiO2 06/28/19 08:11 Room Air 06/28/19 07:00 97.5 67 18 150/76 (100) 97 97.5 Brief Hospital Course Mr. Quintero is a 89 old who lives at home alone but son lives a block away, admitted for severe RT leg pain almost spasms attacks and rt buttock cheek pain., HE was treated as OP for sciatica with short course PO pred which temp relieved, His stay/pain was remarkable for needing physiatry then escalated to pain mx that needed LESI and LESI seemed to have solved the issue, HE is needing SNU NEurosx was also consulted but it was all non surgical case FULL CODE [facility] s[facility] today Discharge Information Disposition/Orders: Other (snu) Scheduled Aspirin (Aspir 81) 81 Mg Tablet.dr, 81 MG PO DAILY08, (Reported) Entered as Reported by: BELEM MARTINEZ on 07/29/131740 Last Action: Reviewed on 06/18/191835 by CURT THOMAS Cholecalciferol (Vitamin D3) (Vitamin D3) 1,000 Unit Tablet, 1 TAB PO DAILY for ukn, #30 Ref 5 (Reported) Entered as Reported by: CURT THOMAS on 06/18/191845 Last Taken: Unknown Dose on Unknown Date & Time Last Action: Reviewed on 06/18/191846 by CURT THOMAS Cyanocobalamin/Fa/Pyridoxine (Folbic Tablet) 1 Each Tablet, 1 TAB PO DAILY for mvi, #30 Prescribed by: FERMIN MONTANA on 06/21/19 0800 Donepezil Hcl (Donepezil Hcl) 10 Mg Tablet, 1 TAB PO DAILY for ukn, #90 Ref 1 (Reported) Entered as Reported by: CURT THOMAS on 06/18/191835 Last Taken: Unknown Dose on Unknown Date & Time Last Action: Reviewed on 06/18/191845 by CURT THOMAS Lisinopril (Lisinopril) 5 Mg Tablet, 5 MG PO HS, (Reported) Entered as Reported by: BELEM MARTINEZ on 07/29/13 1740 Last Action: Reviewed on 06/18/191835 by CURT THOMAS Lisinopril (Lisinopril) 10 Mg Tablet, 1 TAB PO DAILY for htn, #30 Ref 5 Prescribed by: FERMIN MONTANA on 06/22/19 0816 Memantine Hcl (Namenda) 10 Mg Tablet, 1 TAB PO BID for Alzheimers, #180 Ref 1 (Reported) Entered as Reported by: CURT THOMAS on 06/18/191845 Last Taken: Unknown Dose on Unknown Date & Time Last Action: Reviewed on 06/18/191846 by CURT THOMAS Multivits,Ca,Minerals/Iron/Fa (Thera-M Tablet) 1 Each Tablet, 1 TAB PO DAILY for mvi, #30 Prescribed by: FERMIN MONTANA on 06/21/19 0800 Prednisone (Prednisone ) 10 Mg Tablet, 10 MG PO DAILY for sciatica for 4 Days, #4 Prescribed by: FERMIN MONTANA on 06/21/19 0800 Quetiapine Fumarate (Seroquel) 25 Mg Tablet, 25 MG PO BID for depression, (Rep orted) Entered as Reported by: CURT THOMAS on 06/18/191835 Last Taken: Unknown Dose on Unknown Date & Time Last Action: Reviewed on 06/18/191845 by CURT THOMAS Sennosides (Senokot) 8.6 Mg Tablet, 1 TAB PO BID, #40 (Reported) Entered as Reported by: YADI PALACIOS on 01/08/17 1411 Last Action: Reviewed on 06/18/191835 by CURT THOMAS Scheduled PRN Albuterol Sulfate (Proair Hfa) 8.5 Gm Hfa.aer.ad, 2.5 MG NEB PRN Q4HRS PRN for SHORTNESS OF BREATH for 30 Days Prescribed by: FERMIN MONTANA on 06/21/19 0800 Hydrocodone Bit/Acetaminophen (Hydrocodone-Apap 5-325 ) 1 Each Tablet, 1 TAB PO PRN Q4-6HRS PRN for PAIN, #20 Ref 0 Prescribed by: FERMIN MONTANA on 06/21/19 0800 Tizanidine Hcl (Tizanidine Hcl) 4 Mg Tablet, 4 MG PO PRN Q8HRS PRN for MUSCLE SPASMS, #30 Prescribed by: FERMIN MONTANA on 06/21/19 0800 [guaiFENesin/CODEINE 100mg/10mg] 5 ML LIQUID, 5 ML PO PRN Q6HRS PRN for COUGH for 10 Days Prescribed by: FERMIN MONTANA on 06/21/19 0800 FERMIN MONTANA MD Jun 28, 2019 10:53
[2019-06-28 11:00] VITALS: BP 134/78
--- NOTE | 2019-06-28 11:21 | NUR ---
CHAR following for discharge planning. Discussed with RN, pt can go to [facility] today. Transportation set up for 1530. RN and pt notified.
--- NOTE | 2019-06-28 12:19 | NUR ---
Discharge instructions and belongings reviewed with patient, verbalized understanding. Report called to [facility] @[phone] and was given to Mulugeta GARAY. Transport will be here at 1530 to transport patient to facility.
== END 2019-06-28 16:07 | DRG 552 ==
LOC: ER 11:47 → 6 SOUTH 14:52 → 4 NORTH 06-22 21:30
PROVIDERS: ADMIT Internal Medicine; ATTEND Internal Medicine
PROC: 3E0R33Z Introduction of Anti-inflammatory into Spinal Canal, Percutaneous Approach (ICD-10-PCS; principal; 2019-06-25)
PROC: 3E0R3BZ Introduction of Anesthetic Agent into Spinal Canal, Percutaneous Approach (ICD-10-PCS; 2019-06-25)
DX: M54.31 Sciatica, right side (principal); I50.32 Chronic diastolic (congestive) heart failure; I13.0 Hypertensive heart and chronic kidney disease with heart failure and stage 1 through stage 4 chronic kidney disease, or unspecified chronic kidney disease; N18.3 Chronic kidney disease, stage 3 (moderate); D64.9 Anemia, unspecified; F02.80 Dementia in other diseases classified elsewhere, unspecified severity, without behavioral disturbance, psychotic disturbance, mood disturbance, and anxiety; F32.9 Major depressive disorder, single episode, unspecified; G30.9 Alzheimer's disease, unspecified; G62.9 Polyneuropathy, unspecified; G89.29 Other chronic pain; J43.9 Emphysema, unspecified; M41.9 Scoliosis, unspecified; Z96.643 Presence of artificial hip joint, bilateral; Z96.653 Presence of artificial knee joint, bilateral; Z96.612 Presence of left artificial shoulder joint; M47.816 Spondylosis without myelopathy or radiculopathy, lumbar region; M48.061 Spinal stenosis, lumbar region without neurogenic claudication; M77.9 Enthesopathy, unspecified; N40.0 Benign prostatic hyperplasia without lower urinary tract symptoms; Z79.899 Other long term (current) drug therapy; Z82.49 Family history of ischemic heart disease and other diseases of the circulatory system; Z90.49 Acquired absence of other specified parts of digestive tract; Z88.0 Allergy status to penicillin; Z88.8 Allergy status to other drugs, medicaments and biological substances; Z60.2 Problems related to living alone
CPT/HCPCS: 36415; 62323; 71045; 72148; 73521; 80048; 80053; 81001; 82550; 83735; 83880; 84443; 84484; 85025; 85610; 85651; 85730; 93005; 93306; 96360; J1030; J1040; J2270; J7030; J7512; J7613; Q9965; 97110; 97116; 97530; 97535; 99285-25; G0378